=== PATIENT | female | born 1935 | race Caucasian/White ===

== ENCOUNTER 2020-11-05 12:39 | Emergency (ER) | payer MEDICARE, SELFPAY ==
[2020-11-05 13:15] VITALS: BP 178/67; PULSE 60; RESP 18; TEMP 36.4; O2SAT 94
--- NOTE | 2020-11-05 15:25 | PC.NURSE ---
PT TO THE INTAKE STATING THAT SHE WAS GOING TO LEAVE, I INFORMED PATIENT SHE WAS THE NEXT ONE TO GO BACK. PT DECIDED TO STILL LEAVE
== END 2020-11-05 15:25 | disposition left against medical advice (07) ==
LOC: ANHED 15:33
PROVIDERS: PCP Internal Medicine
DX: M79.89 Other specified soft tissue disorders (principal)
CPT/HCPCS: 99199

== ENCOUNTER 2022-12-06 00:48 | Emergency (ER) | payer MEDICARE, SELFPAY ==
--- NOTE | ~2022-12-06 | CT_ITS ---
EXAMINATION: 1. CT facial bones w con DATE: 12/06/2022 06:06 INDICATION: TECHNIQUE: 1. Computed tomography (CT) of the facial bones and maxillofacial region was performed with 75 mL Omn ipaque-350 intravenous contrast. Sagittal and coronal reconstructions were obtained. The dose-length product was 301.47 mGy-cm. COMPARISON: None. FINDINGS: Soft tissue swelling and subcutaneous phlegmonous change with stranding and increased density in the subcutaneous fat at the right base of the nose and immediately adjacent right nares without discrete abscess. Extensive dental disease with numerous large and small bowel dental caries. No associated pe riapical or subperiosteal abscesses the first or cortical erosions to suggest osteomyelitis. No maxil lofacial fractures. Changes of bilateral intraocular lens replacement. Orbits are otherwise normal. T he mastoid air cells, middle ear cavities and paranasal sinuses are clear. Bilateral parotid and subm andibular glands are normal. Likely reactive mildly prominent but still normal-sized bilateral subman dibular lymph nodes. No pathologically enlarged maxillofacial or upper cervical lymphadenopathy. Visu alized portions of the brain and intracranial arteries are unremarkable. IMPRESSION: 1. Focal cellulitis and underlying mild phlegmonous change without abscess at the right nares space a t the nose. 2. Extensive dental disease with multiple dental caries but without evident periapical or subperioste al abscesses. Reviewed, dictated and finalized at location A. IMPRESSION: 1. Focal cellulitis and underlying mild phlegmonous change without abscess at t he right nares space at the nose. 2. Extensive dental disease with multiple dental caries but without evident per iapical or subperiosteal abscesses.
[2022-12-06 01:08] VITALS: BP 161/78; PULSE 60; RESP 20; TEMP 36.2; O2SAT 98
--- NOTE | 2022-12-06 04:35 | ED.SKABFB ---
HPI - Skin/Abscess/Foreign Bdy General Chief complaint: Skin/Abscess/Foreign Body Stated complaint: swollen, painful bump in nose Time Seen by Provider: 12/06/22 04:01 History of Present Illness HPI narrative: This is an 87-year-old female with past history of coronary artery disease, hypothyroidism, brought into the emergency room by family for a painful mass, rated 3/10, of the right nares for the past 2 days. It began 2 days ago and rapidly grown in size today. Related Data Home Medications Medication Instructions Recorded Confirmed aspirin 81 mg tablet,delayed 81 mg PO DAILY 11/30/19 06/23/22 release hydrocodone 7.5 mg-acetaminophen 1 tablet PO DAILY PRN 11/30/19 06/23/22 325 mg tablet morphine 30 mg/30 mL (1 mg/mL) See Rx Instructions .Route .COMPLEX 11/30/19 06/23/22 intravenous [employer] syringe calcium carbonate 600 mg calcium 600 mg PO DAILY 12/05/19 06/23/22 (1,500 mg) tablet (Calcium) Allergies Allergy/AdvReac Type Severity Reaction Status Date / Time gabapentin Allergy Intermediate leg Verified 06/23/22 10:00 swelling prochlorperazine Allergy Intermediate Rash Verified 06/23/22 10:00 [From Compazine] promethazine [From Phenergan] Allergy Intermediate Rash Verified 06/23/22 10:00 codeine Allergy Mild itching Verified 06/23/22 10:00 metoclopramide [From Reglan] Allergy Rash Verified 06/23/22 10:00 Review of Systems Review of Systems: CONSTITUTIONAL: Denies fever, chills, or sweats. EYES: Denies visual changes, redness, or discharge. ENT: Tender mass of the right nares Denies rhinorrhea, congestion, sore throat, or otalgia. CARDIOVASCULAR: Denies chest pain, palpitations, or edema. RESPIRATORY: Denies cough or dyspnea. GASTROINTESTINAL: Denies abdominal pain, nausea, vomiting, or diarrhea. NEUROLOGIC: Denies headache numbness, dizziness, or weakness. PSYCHIATRIC: Denies anxiety or depression. [facility] Past Medical History Medical History Abnormal alkaline phosphatase test Abnormality, skin Allergic dermatitis Controlled diabetes mellitus with diabetic polyneuropathy, without long-term current use of insulin Encounter for vitamin deficiency screening Essential (primary) hypertension Hx of spinal stenosis Hypothyroidism, unspecified Mixed hyperlipidemia Neuropathy Screening for breast cancer Screening for osteoporosis 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 Family History Family History Sibling Family history of malignant neoplasm Social History Social History Smoking status: Never smoker Second hand tobacco smoke exposure: No Alcohol intake: never Substance use: never Substance use type: does not use Lack of Transportation: No Lack of Food: Never True Current Housing: I Have Housing Concerned About Future Housing: No Difficulty Paying Gas/Electric Bills: No Difficulty Paying for Meds: No Currently Unemployed: No Education: High School Diploma/GED Difficulty w/ Childcare or Family Care: No Gender identity (if verbalized by the patient): Female Exam Narrative: GENERAL: Well-developed, well-nourished, and in no acute distress. Very hard of hearing HEAD: Normocephalic, atraumatic. EYES: PERRLA and EOMI. ENT: An erythematous, tender mass is noted at the posterior inferior border of the right nares with a vesicular lesion within the right nares consistent with abscess. Erythema and swelling is noted within the maxillary gingiva., no rhinorrhea or epistaxis. Mucous membranes moist. Oropharynx without tonsillar hypertrophy exudate or other lesions. CHEST: Clear to auscultation. No respiratory distress. No wheezes rales or rhonchi HEART: Regular rate and rhythm. No murmur heard. Normal peripheral pulses. ABDOMEN: Soft, nontender, nondistended, normal active bowel sounds. EXTRE
[2022-12-06 05:40] LABS: Anion Gap 4 mmol/L (8-16); Blood Urea Nitrogen 13 mg/dL (7-17); Calcium 9.2 mg/dL (8.4-10.2); Carbon Dioxide 39 mmol/L (22-30); Chloride 97 mmol/L (98-107); Estimated CRCL calculation 47 ml/min; Estimated Glomerular Filt Rate > 60; Glucose 108 mg/dL (65-110); Potassium 3.7 mmol/L (3.4-5.0); Sodium 140 mmol/L (137-145)
== END 2022-12-06 08:00 | disposition home or self-care (01) ==
PROVIDERS: Emergency Provider Preventive Medicine Aerospace Medicine; PCP Internal Medicine
DX: J34.0 Abscess, furuncle and carbuncle of nose (principal); E11.42 Type 2 diabetes mellitus with diabetic polyneuropathy; E03.9 Hypothyroidism, unspecified; E78.2 Mixed hyperlipidemia; Z79.82 Long term (current) use of aspirin; Z79.84 Long term (current) use of oral hypoglycemic drugs
CPT/HCPCS: 36415; 70487; 80048; 99284; Q9967

== ENCOUNTER 2024-08-04 10:59 | Inpatient (IN) | payer MEDICARE, SELFPAY ==
--- NOTE | ~2024-08-04 | XR_ITS ---
XR chest 2V Ordering provider: Jessica Schroeder PA-C History: 88 years Female with . weakness, TRANSIENT ALTERATION OF AWARENESS, UTI . Comparison: December 25, 2016 FINDINGS: MEDIASTINUM: The cardiac silhouette is not enlarged. LUNGS: No infiltrates, effusions or pneumothorax. Underlying emphysematous changes. Calcified granulomas. OTHER: No free air under the diaphragm. Degenerative changes of the spine. IMPRESSION: No acute cardiopulmonary pathology. Reviewed, dictated and finalized at location A. ATOR CONSTRUCTOR [employer]
--- NOTE | ~2024-08-04 | CT_ITS ---
EXAMINATION: CT brain wo con DATE: 08/04/2024 17:29 INDICATION: AMS . TECHNIQUE: Computed tomography (CT) of the head was performed without intravenous contrast. The mA wa s adjusted according to patient size. Iterative reconstruction technique was employed. The dose-lengt h product was 605.33 mGy-cm. COMPARISON: 07/03/2014. FINDINGS: No acute intracranial hemorrhage or extra-axial fluid collection. No hydrocephalus, mass, or herniation. No acute ischemic infarct. Unremarkable dural venous sinus attenuation. No acute osseous abnormality. Minimal opacification in a right posterior ethmoid cell, the remaining aerated spaces are clear. Moderate atrophy and chronic white matter change. Atherosclerotic intracranial calcification. Bilater al lens replacements. Empty sella. IMPRESSION: No acute intracranial process. Reviewed, dictated and finalized at location K. NCIAL PLANNING ASSISTANT
[2024-08-04 11:02] VITALS: BP 137/52; PULSE 66; RESP 18; TEMP 36.4; O2SAT 99
--- NOTE | 2024-08-04 12:40 | ED.WEAKNESS ---
HPI - Weakness General Chief complaint: Weakness <Jessica Schroeder PA-C - Last Filed: 08/08/24 17:25> Stated complaint: fatigue, confused, uti? <Jessica Schroeder PA-C - Last Filed: 08/08/24 17:25> Time Seen by Provider: 08/04/24 12:40 <Jessica Schroeder PA-C - Last Filed: 08/08/24 17:25> Focused HPI: This is a 88 year old female that presents to the ER for lethargy. Not wanting to eat much. Complaining of back pain. Reports worsening confusion. GENERAL: Elderly, well-nourished, and in no acute distress. HEAD: Normocephalic, atraumatic. CHEST: Clear to auscultation. ?No respiratory distress. HEART: Regular rate and rhythm.? NEURO: ?Alert and oriented x3. Patient screened in triage and initial orders placed.? ?Additional care and disposition to be based upon?diagnostic testing and treatment. <Jessica Schroeder PA-C - Last Filed: 08/08/24 17:25> History of Present Illness HPI Narrative: I agree with the above HPI. The reports the patient does have underlying dementia and has had worsening dementia. They also report the patient has decreased p.o. intake over the last few weeks. They state the patient is to be picky eater but these to be able to manipulate her and to eating but now patient is resistant to even foods she used to be found of. Patient denies any current complaints. <Sudarshan Redman MD - Last Filed: 08/04/24 19:18> Related Data Home medications: Home Medications ?Medication ?Instructions ?Recorded ?Confirmed ?Last Taken ?Type aspirin 81 mg tablet,delayed 81 mg PO DAILY 11/30/19 08/04/24 Unknown History release hydrocodone 7.5 mg-acetaminophen 1 tablet PO DAILY PRN pain 11/30/19 08/04/24 Unknown History 325 mg tablet <Jessica Schroeder PA-C - Last Filed: 08/08/24 17:25> Allergies/Adverse reactions: Allergies Allergy/AdvReac Type Severity Reaction Status Date / Time gabapentin Allergy Intermediate leg Verified 01/11/24 09:42 swelling prochlorperazine (From Allergy Intermediate Rash Verified 01/11/24 09:42 Compazine) promethazine (From Phenergan) Allergy Intermediate Rash Verified 01/11/24 09:42 codeine Allergy Mild itching Verified 01/11/24 09:42 metoclopramide (From Reglan) Allergy Rash Verified 01/11/24 09:42 <Jessica Schroeder PA-C - Last Filed: 08/08/24 17:25> Review of Systems Review of Systems: All systems reviewed & are unremarkable except as noted in HPI and below <Sudarshan Redman MD - Last Filed: 08/04/24 19:18> PMFSH Past Medical History Medical History: Medical History (Updated 08/07/24 @ 17:50 by Ro Gregory DO) Dementia Hx of spinal stenosis 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 Screening for breast cancer Encounter for vitamin deficiency screening Screening for osteoporosis Allergic dermatitis Neuropathy Controlled diabetes mellitus with diabetic polyneuropathy, without long-term current use of insulin Abnormality, skin Hypothyroidism, unspecified Abnormal alkaline phosphatase test Essential (primary) hypertension Mixed hyperlipidemia <Jessica Schroeder PA-C - Last Filed: 08/08/24 17:25> Family History Family History: Family History Sibling Family history of malignant neoplasm <Jessica Schroeder PA-C - Last Filed: 08/08/24 17:25> Social History Social History: Social History Smoking status: Never smoker Second hand tobacco smoke exposure: No Alcohol intake: former Substance use: never Substance use type: does not use Do You Feel Safe in your Home?: Yes Lack of Transportation: No Lack of Food: Never True Current Housing: I Have Housing Concerned About Future Housing: No Difficulty Paying Gas/Electric Bills: No Difficulty Paying for Meds: No Currently Unemployed: No Education: Grade School Difficulty w/ Childcare or Family Care: No Gender identity (if verbalized by the patient): Female Spiritual care concerns: No <Jessica Schroeder PA-C - Last Filed: 08/08/24 17:25> Exam Narrative: APPEARANCE: Well appearing, no pain, no distress, well-nourished. HEAD: normocephalic, atraumatic. EYES: PERRLA/EOMI, conjunctivae clear. NOSE: Normal no drainage EARS:TMS clear with good light reflex. THROAT: Pharynx clear, no exudate. NECK: Supple. No adenopathy, no masses. RESPIRATORY: Airway patent, respirations nonlabored. Clear to auscultation bilaterally, no rales, rhonchi, wheezing. CARDIOVASCULAR: Regular rate and rhythm without murmurs rubs or gallops. ABDOMINAL: Soft, nontender, nondistended, normal bowel sounds MUSCULOSKELETAL: Moves all extremities. Strength/ROM intact, No edema, No calf tenderness. NEURO: Alert. Cranial nerves II through XII intact. Grossly intact SKIN: Warm, dry. Normal Color <Sudarshan Redman MD - Last Filed: 08/04/24 19:18> Course Vital Signs Vital signs: Vital Signs Temperature 97.5 F L 08/04/24 11:02 Pulse Rate 66 08/04/24 11:02 Respiratory Rate 18 08/04/24 11:02 Blood Pressure 137/52 L 08/04/24 11:02 Pulse Oximetry 99 08/04/24 11:02 Oxygen Delivery Room Air 08/04/24 11:02 Temperature 97.6 F 08/05/24 19:42 Pulse Rate 61 08/05/24 20:00 Respiratory Rate 16 08/05/24 20:00 Blood Pressure 133/51 L 08/05/24 19:42 Pulse Oximetry 97 08/06/24 08:10 Oxygen Delivery Room Air 08/06/24 08:37 <Jessica Schroeder PA-C - Last Filed: 08/08/24 17:25> Vital Signs Temperature 97.5 F L 08/04/24 11:02 Pulse Rate 66 08/04/24 11:02 Respiratory Rate 18 08/04/24 11:02 Blood Pressure 137/52 L 08/04/24 11:02 Pulse Oximetry 99 08/04/24 11:02 Oxygen Delivery Room Air 08/04/24 11:02 Temperature 97.6 F 08/05/24 19:42 Pulse Rate 61 08/05/24 20:00 Respiratory Rate 16 08/05/24 20:00 Blood Pressure 133/51 L 08/05/24 19:42 Pulse Oximetry 97 08/06/24 08:10 Oxygen Delivery Room Air 08/06/24 08:37 <Sudarshan Redman MD - Last Filed: 08/04/24 19:18> MDM - Weakness MDM Narrative Medical decision making narrative: 88-year-old female presents emergency department for evaluation for decreased p.o. intake. Patient denies any specific complaints. Patient is afebrile with no leukocytosis and hemoglobin 11.6. Patient has an BELLO with a creatinine of 2.5 and typical baseline of 0.7-0.8. UA is negative for infection. Chest x-ray shows no acute cardiopulmonary abnormality. Family does not want the patient placed in a care home. Family does not feel the patient would tolerate having a G-tube placed. Case was discussed with hospitalist and patient was accepted for admission with care coordination placed <Sudarshan Redman MD - Last Filed: 08/04/24 19:18> Differential Diagnosis Differential diagnosis: Likely other (Dementia, gastritis, UTI, COVID, RSV, influenza, subdural hematoma, subarachnoid hemorrhage) <Sudarshan Redman MD - Last Filed: 08/04/24 19:18> Lab Data Attestation: I reviewed the patient's lab results. <Sudarshan Redman MD - Last Filed: 08/04/24 19:18> Result diagrams: 08/06/24 05:17 08/06/24 05:17 <Jessica Schroeder PA-C - Last Filed: 08/08/24 17:25> Labs: Lab Results 08/04/24 08/04/24 08/04/24 Range/Units 12:49 14:08 16:17 WBC 8.4 (4.5-10.0) K/mm3 RBC 4.25 (4.2-5.4) M/mm3 Hgb 11.6 L (12.0-15.0) g/dL Hct 37.7 (37.0-47.0) % MCV 88.7 (80-100) fl MCH 27.3 (26-34) pg MCHC 30.8 L (32-36) g/dl RDW 14.6 H (11.5-14.5) % Plt Count 230 (150-375) k/mm3 MPV 10.6 H (7.4-10.4) fl Immature Gran % (Auto) 0.2 (0-0.5) % Neut % (Auto) 70.9 (45.5-73.1) % Lymph % (Auto) 20.7 (18.3-44.2) % [place] % (Auto) 5.7 (2.6-8.5) % Eos % (Auto) 1.9 (0-4.4) % Baso % (Auto) 0.6 (0.2-1.2) % Lymph # (Auto) 1.73 (0.9-3.2) K/mm3 [place] # (Auto) 0.5 (0.1-0.6) K/mm3 Eos # (Auto) 0.2 (0-0.3) K/mm3 Baso # (Auto) 0.1 (0.0-0.1) K/mm3 Abs Immat Gran (auto) 0.02 (0.00-0.031) K/mm3 Absolute Neuts (auto) 5.9 (1.3-6.7) K/mm3 Absolute Nucleated RBC 0.000 (0.0-0.012) K/mm3 Nucleated RBC % 0.0 (0.0-0.2) % Sodium 141 (137-145) mmol/L Potassium 4.1 (3.4-5.0) mmol/L Chloride 103 (98-107) mmol/L Carbon Dioxide 34 H (22-30) mmol/L Anion Gap 4 (4-12) mmol/L BUN 29 H D (7-17) mg/dL Creatinine 2.50 H (0.7-1.0) mg/dL Estim Creat Clear Calc 13 ml/min Estimated GFR 18 L (59 - ) Glucose 105 (65-110) mg/dL POC Capillary Glucose (65-105) mg/dl Hemoglobin A1c 5.7 (<5.7) % Calcium 9.6 (8.4-10.2) mg/dL Total Bilirubin 0.7 (0.2-1.3) mg/dL AST 29 (14-36) U/L ALT 14 (6-35) U/L Alkaline Phosphatase 97 (38-126) U/L Total Protein 7.0 (6.3-8.2) g/dL Albumin 3.7 (3.5-5.1) g/dL Vitamin B12 (239-931) pg/mL Folate (2.76->20) ng/mL TSH (0.465-4.680) uIU/mL Urine Color Yellow (Yellow) Urine Appearance Clear (Clear) Urine pH 5.0 (5.0-9.0) Ur Specific [place] 1.015 (1.001-1.035) Urine Protein Negative (Negative) mg/dL Urine Glucose (UA) Negative (Negative) mg/dL Urine Ketones Trace H (Negative) mg/dL Ur Blood (Man) Negative (Negative) Urine Nitrate Negative (Negative) Urine Bilirubin Negative (Negative) Urine Urobilinogen 0.2 (<2.0) mg/dL Leukocyte Esterase Rfl Negative (Negative) JOHN/UL Influenza A (RT-PCR) Negative (Negative) Influenza B (RT-PCR) Negative (Negative) RSV (RT-PCR) Negative (Negative) SARS-CoV-2 RNA (RT-PCR) Negative (Negative) 08/04/24 08/05/24 08/05/24 Range/Units 21:17 06:20 07:41 WBC (4.5-10.0) K/mm3 RBC (4.2-5.4) M/mm3 Hgb (12.0-15.0) g/dL Hct (37.0-47.0) % MCV (80-100) fl MCH (26-34) pg MCHC (32-36) g/dl RDW (11.5-14.5) % Plt Count (150-375) k/mm3 MPV (7.4-10.4) fl Immature Gran % (Auto) (0-0.5) % Neut % (Auto) (45.5-73.1) % Lymph % (Auto) (18.3-44.2) % [place] % (Auto) (2.6-8.5) % Eos % (Auto) (0-4.4) % Baso % (Auto) (0.2-1.2) % Lymph # (Auto) (0.9-3.2) K/mm3 [place] # (Auto) (0.1-0.6) K/mm3 Eos # (Auto) (0-0.3) K/mm3 Baso # (Auto) (0.0-0.1) K/mm3 Abs Immat Gran (auto) (0.00-0.031) K/mm3 Absolute Neuts (auto) (1.3-6.7) K/mm3 Absolute Nucleated RBC (0.0-0.012) K/mm3 Nucleated RBC % (0.0-0.2) % Sodium 143 (137-145) mmol/L Potassium 3.3 L (3.4-5.0) mmol/L Chloride 107 (98-107) mmol/L Carbon Dioxide 27 (22-30) mmol/L Anion Gap 9 (4-12) mmol/L BUN 23 H (7-17) mg/dL Creatinine 2.10 H (0.7-1.0) mg/dL Estim Creat Clear Calc 15 ml/min Estimated GFR 22 L (59 - ) Glucose 105 (65-110) mg/dL POC Capillary Glucose 95 73 (65-105) mg/dl Hemoglobin A1c (<5.7) % Calcium 8.7 (8.4-10.2) mg/dL Total Bilirubin (0.2-1.3) mg/dL AST (14-36) U/L ALT (6-35) U/L Alkaline Phosphatase (38-126) U/L Total Protein (6.3-8.2) g/dL Albumin (3.5-5.1) g/dL Vitamin B12 458.0 (239-931) pg/mL Folate > 20.0 H (2.76->20) ng/mL TSH 0.098 L (0.465-4.680) uIU/mL Urine Color (Yellow) Urine Appearance (Clear) Urine pH (5.0-9.0) Ur Specific [place] (1.001-1.035) Urine Protein (Negative) mg/dL Urine Glucose (UA) (Negative) mg/dL Urine Ketones (Negative) mg/dL Ur Blood (Man) (Negative) Urine Nitrate (Negative) Urine Bilirubin (Negative) Urine Urobilinogen (<2.0) mg/dL Leukocyte Esterase Rfl (Negative) JOHN/UL Influenza A (RT-PCR) (Negative) Influenza B (RT-PCR) (Negative) RSV (RT-PCR) (Negative) SARS-CoV-2 RNA (RT-PCR) (Negative) 08/05/24 Range/Units 11:52 WBC (4.5-10.0) K/mm3 RBC (4.2-5.4) M/mm3 Hgb (12.0-15.0) g/dL Hct (37.0-47.0) % MCV (80-100) fl MCH (26-34) pg MCHC (32-36) g/dl RDW (11.5-14.5) % Plt Count (150-375) k/mm3 MPV (7.4-10.4) fl Immature Gran % (Auto) (0-0.5) % Neut % (Auto) (45.5-73.1) % Lymph % (Auto) (18.3-44.2) % [place] % (Auto) (2.6-8.5) % Eos % (Auto) (0-4.4) % Baso % (Auto) (0.2-1.2) % Lymph # (Auto) (0.9-3.2) K/mm3 [place] # (Auto) (0.1-0.6) K/mm3 Eos # (Auto) (0-0.3) K/mm3 Baso # (Auto) (0.0-0.1) K/mm3 Abs Immat Gran (auto) (0.00-0.031) K/mm3 Absolute Neuts (auto) (1.3-6.7) K/mm3 Absolute Nucleated RBC (0.0-0.012) K/mm3 Nucleated RBC % (0.0-0.2) % Sodium (137-145) mmol/L Potassium (3.4-5.0) mmol/L Chloride (98-107) mmol/L Carbon Dioxide (22-30) mmol/L Anion Gap (4-12) mmol/L BUN (7-17) mg/dL Creatinine (0.7-1.0) mg/dL Estim Creat Clear Calc ml/min Estimated GFR (59 - ) Glucose (65-110) mg/dL POC Capillary Glucose 97 (65-105) mg/dl Hemoglobin A1c (<5.7) % Calcium (8.4-10.2) mg/dL Total Bilirubin (0.2-1.3) mg/dL AST (14-36) U/L ALT (6-35) U/L Alkaline Phosphatase (38-126) U/L Total Protein (6.3-8.2) g/dL Albumin (3.5-5.1) g/dL Vitamin B12 (239-931) pg/mL Folate (2.76->20) ng/mL TSH (0.465-4.680) uIU/mL Urine Color (Yellow) Urine Appearance (Clear) Urine pH (5.0-9.0) Ur Specific [place] (1.001-1.035) Urine Protein (Negative) mg/dL Urine Glucose (UA) (Negative) mg/dL Urine Ketones (Negative) mg/dL Ur Blood (Man) (Negative) Urine Nitrate (Negative) Urine Bilirubin (Negative) Urine Urobilinogen (<2.0) mg/dL Leukocyte Esterase Rfl (Negative) JOHN/UL Influenza A (RT-PCR) (Negative) Influenza B (RT-PCR) (Negative) RSV (RT-PCR) (Negative) SARS-CoV-2 RNA (RT-PCR) (Negative) <Jessica Schroeder PA-C - Last Filed: 08/08/24 17:25> Lab Results 08/04/24 08/04/24 08/04/24 Range/Units 12:49 14:08 16:17 WBC 8.4 (4.5-10.0) K/mm3 RBC 4.25 (4.2-5.4) M/mm3 Hgb 11.6 L (12.0-15.0) g/dL Hct 37.7 (37.0-47.0) % MCV 88.7 (80-100) fl MCH 27.3 (26-34) pg MCHC 30.8 L (32-36) g/dl RDW 14.6 H (11.5-14.5) % Plt Count 230 (150-375) k/mm3 MPV 10.6 H (7.4-10.4) fl Immature Gran % (Auto) 0.2 (0-0.5) % Neut % (Auto) 70.9 (45.5-73.1) % Lymph % (Auto) 20.7 (18.3-44.2) % [place] % (Auto) 5.7 (2.6-8.5) % Eos % (Auto) 1.9 (0-4.4) % Baso % (Auto) 0.6 (0.2-1.2) % Lymph # (Auto) 1.73 (0.9-3.2) K/mm3 [place] # (Auto) 0.5 (0.1-0.6) K/mm3 Eos # (Auto) 0.2 (0-0.3) K/mm3 Baso # (Auto) 0.1 (0.0-0.1) K/mm3 Abs Immat Gran (auto) 0.02 (0.00-0.031) K/mm3 Absolute Neuts (auto) 5.9 (1.3-6.7) K/mm3 Absolute Nucleated RBC 0.000 (0.0-0.012) K/mm3 Nucleated RBC % 0.0 (0.0-0.2) % Sodium 141 (137-145) mmol/L Potassium 4.1 (3.4-5.0) mmol/L Chloride 103 (98-107) mmol/L Carbon Dioxide 34 H (22-30) mmol/L Anion Gap 4 (4-12) mmol/L BUN 29 H D (7-17) mg/dL Creatinine 2.50 H (0.7-1.0) mg/dL Estim Creat Clear Calc 13 ml/min Estimated GFR 18 L (59 - ) Glucose 105 (65-110) mg/dL POC Capillary Glucose (65-105) mg/dl Hemoglobin A1c 5.7 (<5.7) % Calcium 9.6 (8.4-10.2) mg/dL Total Bilirubin 0.7 (0.2-1.3) mg/dL AST 29 (14-36) U/L ALT 14 (6-35) U/L Alkaline Phosphatase 97 (38-126) U/L Total Protein 7.0 (6.3-8.2) g/dL Albumin 3.7 (3.5-5.1) g/dL Vitamin B12 (239-931) pg/mL Folate (2.76->20) ng/mL TSH (0.465-4.680) uIU/mL Urine Color Yellow (Yellow) Urine Appearance Clear (Clear) Urine pH 5.0 (5.0-9.0) Ur Specific [place] 1.015 (1.001-1.035) Urine Protein Negative (Negative) mg/dL Urine Glucose (UA) Negative (Negative) mg/dL Urine Ketones Trace H (Negative) mg/dL Ur Blood (Man) Negative (Negative) Urine Nitrate Negative (Negative) Urine Bilirubin Negative (Negative) Urine Urobilinogen 0.2 (<2.0) mg/dL Leukocyte Esterase Rfl Negative (Negative) JOHN/UL Influenza A (RT-PCR) Negative (Negative) Influenza B (RT-PCR) Negative (Negative) RSV (RT-PCR) Negative (Negative) SARS-CoV-2 RNA (RT-PCR) Negative (Negative) 08/04/24 08/05/24 08/05/24 Range/Units 21:17 06:20 07:41 WBC (4.5-10.0) K/mm3 RBC (4.2-5.4) M/mm3 Hgb (12.0-15.0) g/dL Hct (37.0-47.0) % MCV (80-100) fl MCH (26-34) pg MCHC (32-36) g/dl RDW (11.5-14.5) % Plt Count (150-375) k/mm3 MPV (7.4-10.4) fl Immature Gran % (Auto) (0-0.5) % Neut % (Auto) (45.5-73.1) % Lymph % (Auto) (18.3-44.2) % [place] % (Auto) (2.6-8.5) % Eos % (Auto) (0-4.4) % Baso % (Auto) (0.2-1.2) % Lymph # (Auto) (0.9-3.2) K/mm3 [place] # (Auto) (0.1-0.6) K/mm3 Eos # (Auto) (0-0.3) K/mm3 Baso # (Auto) (0.0-0.1) K/mm3 Abs Immat Gran (auto) (0.00-0.031) K/mm3 Absolute Neuts (auto) (1.3-6.7) K/mm3 Absolute Nucleated RBC (0.0-0.012) K/mm3 Nucleated RBC % (0.0-0.2) % Sodium 143 (137-145) mmol/L Potassium 3.3 L (3.4-5.0) mmol/L Chloride 107 (98-107) mmol/L Carbon Dioxide 27 (22-30) mmol/L Anion Gap 9 (4-12) mmol/L BUN 23 H (7-17) mg/dL Creatinine 2.10 H (0.7-1.0) mg/dL Estim Creat Clear Calc 15 ml/min Estimated GFR 22 L (59 - ) Glucose 105 (65-110) mg/dL POC Capillary Glucose 95 73 (65-105) mg/dl Hemoglobin A1c (<5.7) % Calcium 8.7 (8.4-10.2) mg/dL Total Bilirubin (0.2-1.3) mg/dL AST (14-36) U/L ALT (6-35) U/L Alkaline Phosphatase (38-126) U/L Total Protein (6.3-8.2) g/dL Albumin (3.5-5.1) g/dL Vitamin B12 458.0 (239-931) pg/mL Folate > 20.0 H (2.76->20) ng/mL TSH 0.098 L (0.465-4.680) uIU/mL Urine Color (Yellow) Urine Appearance (Clear) Urine pH (5.0-9.0) Ur Specific [place] (1.001-1.035) Urine Protein (Negative) mg/dL Urine Glucose (UA) (Negative) mg/dL Urine Ketones (Negative) mg/dL Ur Blood (Man) (Negative) Urine Nitrate (Negative) Urine Bilirubin (Negative) Urine Urobilinogen (<2.0) mg/dL Leukocyte Esterase Rfl (Negative) JOHN/UL Influenza A (RT-PCR) (Negative) Influenza B (RT-PCR) (Negative) RSV (RT-PCR) (Negative) SARS-CoV-2 RNA (RT-PCR) (Negative) 08/05/24 Range/Units 11:52 WBC (4.5-10.0) K/mm3 RBC (4.2-5.4) M/mm3 Hgb (12.0-15.0) g/dL Hct (37.0-47.0) % MCV (80-100) fl MCH (26-34) pg MCHC (32-36) g/dl RDW (11.5-14.5) % Plt Count (150-375) k/mm3 MPV (7.4-10.4) fl Immature Gran % (Auto) (0-0.5) % Neut % (Auto) (45.5-73.1) % Lymph % (Auto) (18.3-44.2) % [place] % (Auto) (2.6-8.5) % Eos % (Auto) (0-4.4) % Baso % (Auto) (0.2-1.2) % Lymph # (Auto) (0.9-3.2) K/mm3 [place] # (Auto) (0.1-0.6) K/mm3 Eos # (Auto) (0-0.3) K/mm3 Baso # (Auto) (0.0-0.1) K/mm3 Abs Immat Gran (auto) (0.00-0.031) K/mm3 Absolute Neuts (auto) (1.3-6.7) K/mm3 Absolute Nucleated RBC (0.0-0.012) K/mm3 Nucleated RBC % (0.0-0.2) % Sodium (137-145) mmol/L Potassium (3.4-5.0) mmol/L Chloride (98-107) mmol/L Carbon Dioxide (22-30) mmol/L Anion Gap (4-12) mmol/L BUN (7-17) mg/dL Creatinine (0.7-1.0) mg/dL Estim Creat Clear Calc ml/min Estimated GFR (59 - ) Glucose (65-110) mg/dL POC Capillary Glucose 97 (65-105) mg/dl Hemoglobin A1c (<5.7) % Calcium (8.4-10.2) mg/dL Total Bilirubin (0.2-1.3) mg/dL AST (14-36) U/L ALT (6-35) U/L Alkaline Phosphatase (38-126) U/L Total Protein (6.3-8.2) g/dL Albumin (3.5-5.1) g/dL Vitamin B12 (239-931) pg/mL Folate (2.76->20) ng/mL TSH (0.465-4.680) uIU/mL Urine Color (Yellow) Urine Appearance (Clear) Urine pH (5.0-9.0) Ur Specific [place] (1.001-1.035) Urine Protein (Negative) mg/dL Urine Glucose (UA) (Negative) mg/dL Urine Ketones (Negative) mg/dL Ur Blood (Man) (Negative) Urine Nitrate (Negative) Urine Bilirubin (Negative) Urine Urobilinogen (<2.0) mg/dL Leukocyte Esterase Rfl (Negative) JOHN/UL Influenza A (RT-PCR) (Negative) Influenza B (RT-PCR) (Negative) RSV (RT-PCR) (Negative) SARS-CoV-2 RNA (RT-PCR) (Negative) <Sudarshan Redman MD - Last Filed: 08/04/24 19:18> Imaging Data Radiologist's impression: Impressions Chest X-Ray 08/04/24 13:11 IMPRESSION: No acute cardiopulmonary pathology. Head CT 08/04/24 17:30 IMPRESSION: No acute intracranial process. <Sudarshan Redman MD - Last Filed: 08/04/24 19:18> Critical Care Time Critical Care Time Critical Care Time: Yes <Jessica Schroeder PA-C - Last Filed: 08/08/24 17:25> Total Critical Care Time: 35 <Jessica Schroeder PA-C - Last Filed: 08/08/24 17:25> Discharge Plan Discharge Clinical Impression: Adult failure to thrive, BELLO (acute kidney injury) <Jessica Schroeder PA-C - Last Filed: 08/08/24 17:25> Patient Disposition: Still a Patient <Jessica Schroeder PA-C - Last Filed: 08/08/24 17:25> Condition: Stable <Jessica Schroeder PA-C - Last Filed: 08/08/24 17:25>
--- NOTE | 2024-08-04 12:41 | ECG_ITS ---
Test Date: 2024-08-04 12:51:07 Measurements Intervals [place] Rate: 67 P: 91 WV: 178 QRS: -33 QRSD: 79 T: 51 QT: 395 QTc: 417 Interpretive Statements SINUS RHYTHM MARKED LEFT AXIS DEVIATION [QRS AXIS < -30] NONSPECIFIC T-WAVE ABNORMALITY No previous ECG available for comparison Electronically Signed On 08-04-2024 12:52:34 [employer] INTERN by Cameron Hansen M.D.
[2024-08-04 13:07] LABS: Basophils Absolute Auto 0.1 K/mm3 (0.0-0.1); Basophils Percent Auto 0.6 % (0.2-1.2); Eosinophils Absolute Auto 0.2 K/mm3 (0-0.3); Eosinophils Percent Auto 1.9 % (0-4.4); Hematocrit 37.7 % (37.0-47.0); Hemoglobin 11.6 g/dL (12.0-15.0); Immature Granulocyte Absolute 0.02 K/mm3 (0.00-0.031); Immature Granulocyte Percent A 0.2 % (0-0.5); Lymphocytes Absolute Auto 1.73 K/mm3 (0.9-3.2); Lymphocytes Percent Auto 20.7 % (18.3-44.2); Mean Corpuscular HGB Conc 30.8 g/dl (32-36); Mean Corpuscular Hemoglobin 27.3 pg (26-34); Mean Corpuscular Volume 88.7 fl (80-100); Mean Platelet Volume 10.6 fl (7.4-10.4); Monocytes Absolute Auto 0.5 K/mm3 (0.1-0.6); Monocytes Percent Auto 5.7 % (2.6-8.5); Neutrophils Absolute Auto 5.9 K/mm3 (1.3-6.7); Neutrophils Percent Auto 70.9 % (45.5-73.1); Platelet Count Result 230 k/mm3 (150-375); Red Blood Count 4.25 M/mm3 (4.2-5.4); Red Cell Distribution Width 14.6 % (11.5-14.5); White Blood Count 8.4 K/mm3 (4.5-10.0)
[2024-08-04 13:19] LABS: Alanine Aminotransferase 14 U/L (6-35); Albumin Level 3.7 g/dL (3.5-5.1); Alkaline Phosphatase 97 U/L (38-126); Anion Gap 4 mmol/L (4-12); Aspartate Amino Transferase 29 U/L (14-36); Bilirubin,Total 0.7 mg/dL (0.2-1.3); Blood Urea Nitrogen 29 mg/dL (7-17); Calcium 9.6 mg/dL (8.4-10.2); Carbon Dioxide 34 mmol/L (22-30); Chloride 103 mmol/L (98-107); Estimated CRCL calculation 13 ml/min; Estimated Glomerular Filt Rate 18; Glucose 105 mg/dL (65-110); Potassium 4.1 mmol/L (3.4-5.0); Sodium 141 mmol/L (137-145)
[2024-08-04 14:18] LABS: Add Urine Microscopic? NO; Appearance Urine Clear (Clear); Bilirubin Urine Negative (Negative); Blood Urine Negative (Negative); Color Urine Yellow (Yellow); Glucose Urine UA Negative (Negative); Ketones Urine Trace mg/dL (Negative); Leukocyte Esterase Ur Negative LEU/UL (Negative); Nitrate Urine Negative (Negative); Protein Urine Negative (Negative); Specific Grav Ur 1.015 (1.001-1.035); Urobilinogen Urine 0.2 mg/dL (<2.0)
[2024-08-04 16:57] LABS: Influenza A QL RT-PCR Negative (Negative); Influenza B QL RT-PCR Negative (Negative); RSV RNA, RT-PCR Negative (Negative); SARS-CoV-2 RNA PCR Negative (Negative)
[2024-08-04] MEDS: SODIUM CHLORIDE 0.9% IV 1,000 ML 999 ML IV CONT (17:32)
--- NOTE | 2024-08-04 18:30 | PC.NURSE ---
Pt. able to ambulate to bathroom with a walker with assisance x1.
[2024-08-04 19:00] VITALS: BP 142/63; PULSE 63; RESP 16; O2SAT 95
--- NOTE | 2024-08-04 19:21 | PC.NURSE ---
Report attempted x1. Bed is not clean. Asked to call back in 10-15 minutes.
[2024-08-04 20:15] VITALS: BP 122/72; PULSE 85; RESP 16; O2SAT 95
--- NOTE | 2024-08-04 20:32 | ADMGEN ---
This patient, Bertha Amado, was admitted to 2 Medical Room 257-01. Patient/family oriented to hospital policies and general routines including ID bracelet, bed and alarms, visiting hours, pain management, procedures, bathroom and other care routines, personal items, smoking policy, room service/diet, and visiting hours. Information on how to activate the Rapid Response Team has been discussed. Patient/Family are encouraged to report perceived risks to care and to ask questions if they do not understand what they are told or what they should do.
[2024-08-04 20:40] VITALS: BP 139/54; PULSE 70; RESP 16; TEMP 36.6; O2SAT 97
[2024-08-04] MEDS: SODIUM CHLORIDE 0.9% IV 1,000 ML 125 ML IV CONT (21:05)
--- NOTE | 2024-08-04 21:08 | PM.IMHP ---
H&P: HPI History of Present Illness Date/Time: 08/04/24 21:08 Chief Complaint: Increasing confusion Narrative: Pt lives with her daughter who is the main carer. Pt has been really weak not eating and drinking for past few days daughter states she is withering away. pt not wanting to eat or drink Pt also has been getting increasing confused ? dementia Pt mind for past 2 years has been declining more recently not following commands daughter brought her in for evaluation however daughter not wanting placement or hospice care not wanting any consult to palliative care or hospice at this time. Daughter is main carer Inés Pt has a pain pump in situ, daughter will bring a corrected list of medications tomorrow. Labs show pt creat is 2.5, BELLO likely secondary to dehydration Pt appears confusion states she lives with her sister poor historian, daughter contacted for full history. 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 Screening for breast cancer Encounter for vitamin deficiency screening Screening for osteoporosis Allergic dermatitis Neuropathy Controlled diabetes mellitus with diabetic polyneuropathy, without long-term current use of insulin Abnormality, skin Hypothyroidism, unspecified Abnormal alkaline phosphatase test Essential (primary) hypertension Mixed hyperlipidemia Family History Family History Sibling Family history of malignant neoplasm Social History Social History Smoking status: Never smoker Second hand tobacco smoke exposure: No Alcohol intake: former Substance use: never Substance use type: does not use Do You Feel Safe in your Home?: Yes Lack of Transportation: No Lack of Food: Never True Current Housing: I Have Housing Concerned About Future Housing: No Difficulty Paying Gas/Electric Bills: No Difficulty Paying for Meds: No Currently Unemployed: No Education: Grade School Difficulty w/ Childcare or Family Care: No Gender identity (if verbalized by the patient): Female Spiritual care concerns: No Meds Home Medications and Allergies Home Medications ?Medication ?Instructions ?Recorded ?Confirmed ?Type aspirin 81 mg tablet,delayed 81 mg PO DAILY 11/30/19 01/11/24 History release hydrocodone 7.5 mg-acetaminophen 1 tablet PO DAILY PRN 11/30/19 01/11/24 History 325 mg tablet furosemide 20 mg tablet See Rx Instructions .Route 01/11/24 01/11/24 Rx .COMPLEX #270 tabs levothyroxine 100 mcg tablet See Rx Instructions .Route 05/09/24 Rx .COMPLEX #90 tabs metformin 500 mg tablet See Rx Instructions .Route 05/26/24 Rx .COMPLEX #180 tabs atorvastatin 40 mg tablet See Rx Instructions .Route 06/28/24 Rx .COMPLEX #90 tabs metoprolol tartrate 25 mg tablet See Rx Instructions .Route 06/28/24 Rx .COMPLEX #180 tabs omeprazole 40 mg capsule,delayed See Rx Instructions .Route 06/28/24 Rx release .COMPLEX #90 caps potassium chloride 10 mEq See Rx Instructions .Route 06/28/24 Rx capsule,extended release .COMPLEX #90 caps Allergies Allergy/AdvReac Type Severity Reaction Status Date / Time gabapentin Allergy Intermediate leg Verified 01/11/24 09:42 swelling prochlorperazine (From Allergy Intermediate Rash Verified 01/11/24 09:42 Compazine) promethazine (From Phenergan) Allergy Intermediate Rash Verified 01/11/24 09:42 codeine Allergy Mild itching Verified 01/11/24 09:42 metoclopramide (From Reglan) Allergy Rash Verified 01/11/24 09:42 Vital Signs Vital Signs - 24 hr 08/04/24 11:02 08/04/24 19:00 08/04/24 20:15 Temperature 36.4 C L Pulse Rate 66 63 85 Respiratory Rate 18 16 16 Blood Pressure 137/52 L 142/63 H 122/72 Pulse Oximetry 99 95 95 Oxygen Delivery Room Air Exam Narrative: dry facies thin appearing disoriented x2 Const: General: in distress and thin (dry facies, disoriented x2 ) Nutritional Appearance: overweight Orientation/consciousness: oriented to person HENMT: Head: normal to inspection Resp: Effort & Inspection: no respiratory distress Auscultation: no rhonchi and no wheezes Cardio: Rate: regular rate Rhythm: regular rhythm GI: Inspection: normal to inspection GI Palp: No abdominal tenderness, No Guarding due to palpation present (GI) and No Hepatomegaly present Auscultation: normal bowel sounds Neuro: Other: disoriented x2 poor historian TAKOTNA Extrem: Other: no edema of perpheries Psych: Other: early dementia H&P: Results Labs Labs: Short CBC 08/04/24 Range/Units 12:49 WBC 8.4 (4.5-10.0) K/mm3 Hgb 11.6 L (12.0-15.0) g/dL Hct 37.7 (37.0-47.0) % Plt Count 230 (150-375) k/mm3 BMP 08/04/24 12:49 Sodium 141 Potassium 4.1 Chloride 103 Carbon Dioxide 34 H BUN 29 H D Creatinine 2.50 H Glucose 105 Calcium 9.6 Liver Function 08/04/24 Range/Units 12:49 Total Bilirubin 0.7 (0.2-1.3) mg/dL AST 29 (14-36) U/L ALT 14 (6-35) U/L Alkaline Phosphatase 97 (38-126) U/L Albumin 3.7 (3.5-5.1) g/dL Urine 08/04/24 Range/Units 14:08 Urine Color Yellow (Yellow) Urine Appearance Clear (Clear) Urine pH 5.0 (5.0-9.0) Ur Specific [place] 1.015 (1.001-1.035) Urine Protein Negative (Negative) mg/dL Urine Glucose (UA) Negative (Negative) mg/dL Assessment and Plan Assessment and plan (1) BELLO (acute kidney injury): Code(s): N17.9 - Acute kidney failure, unspecified Status: Acute Assessment and Plan: plan hydrate with fluids watch creat levels creat is 2.5 on admission encourage oral fuids and ensures (2) Adult failure to thrive: Code(s): R62.7 - Adult failure to thrive Status: Acute Assessment and Plan: ST and nutritional assessment add Remeron to stimulate appetite PT/ OT (3) Dementia: Code(s): F03.90 - Unspecified dementia, unspecified severity, without behavioral disturbance, psychotic disturbance, mood disturbance, and anxiety Status: Acute Assessment and Plan: slow decline over 2 years start dementia medication start trazadone at night to help with sleep and any sundowning order IM zyprexa if very agitated family not wanting any placement refer to neurology or psych on dc for full evaluation of dementia and further cognitive assessments I think pt will benefit from Home health services Plan DVT: SCD code: full code daughter declining palliative consults or hospice consults Hospitalist MIPS Advance Care Plan I have confirmed that the patient's Advanced Care Plan is present, code status is documented, or surrogate decision maker is listed in patient medical record.: Yes Medication Reconciliation I have utilized all available resources to obtain, update and review the patients current medications (includes all prescriptions, OTC, herbals, cannabis, and nutritional supplements).: Yes
[2024-08-04 21:20] LABS: Glucose Point of Care 95 mg/dl (65-105)
[2024-08-04 21:56] VITALS: PULSE 70; RESP 16; O2SAT 97
[2024-08-04 22:12] LABS: Hemoglobin A1C 5.7 % (<5.7)
[2024-08-04 22:35] VITALS: PULSE 70
[2024-08-04] MEDS: METOPROLOL TARTRATE 25 MG TABLET BY MOUTH (22:35)
[2024-08-05] MEDS: OLANZapine 10 MG INJ VIAL 5 MG IM (04:47)
[2024-08-05 06:45] LABS: Anion Gap 9 mmol/L (4-12); Blood Urea Nitrogen 23 mg/dL (7-17); Calcium 8.7 mg/dL (8.4-10.2); Carbon Dioxide 27 mmol/L (22-30); Chloride 107 mmol/L (98-107); Estimated CRCL calculation 15 ml/min; Estimated Glomerular Filt Rate 22; Glucose 105 mg/dL (65-110); Potassium 3.3 mmol/L (3.4-5.0); Sodium 143 mmol/L (137-145)
[2024-08-05 07:10] LABS: Thyroid Stimulating Hormone 0.098 uIU/mL (0.465-4.680)
[2024-08-05 07:44] LABS: Glucose Point of Care 73 mg/dl (65-105)
[2024-08-05 07:49] LABS: Folic Acid > 20.0 ng/mL (2.76->20)
[2024-08-05] MEDS: ASPIRIN 81 MG ENTERIC TABLET PO (10:18)
[2024-08-05] MEDS: PANTOPRAZOLE 40 MG TABLET PO ×2 (10:18→19:10)
[2024-08-05] MEDS: POTASSIUM CHLORIDE 10 MEQ ER TABLET PO (10:18)
[2024-08-05 10:19] VITALS: PULSE 90
[2024-08-05] MEDS: ATORVASTATIN 20 MG TABLET PO (10:19)
[2024-08-05] MEDS: METOPROLOL TARTRATE 25 MG TABLET BY MOUTH ×2 (10:19→19:10)
[2024-08-05 12:04] LABS: Glucose Point of Care 97 mg/dl (65-105)
--- NOTE | 2024-08-05 13:48 | PM.IMPN ---
Progress Note: A&P Assessment and Plan (1) BELLO (acute kidney injury): Code(s): N17.9 - Acute kidney failure, unspecified Status: Acute Assessment and Plan: IV fluids. Creatinine on admission 2.5 Baseline creatinine 0.8 2022 Continue IV fluids (2) Adult failure to thrive: Code(s): R62.7 - Adult failure to thrive Status: Acute Assessment and Plan: ST and nutritional assessment add Remeron to stimulate appetite PT/ OT (3) Dementia: Code(s): F03.90 - Unspecified dementia, unspecified severity, without behavioral disturbance, psychotic disturbance, mood disturbance, and anxiety Status: Acute Assessment and Plan: CT head was negative for any acute intracranial abnormality slow decline over 2 years start dementia medication start trazadone at night to help with sleep and any owning IM zyprexa if very agitated family not wanting any placement Plan DVT: SCD code: full code Subjective Date/time seen: 08/05/24 13:48 Interval history: Patient intermittently agitated. Confused family at bedside discussed with them. Review of Systems Review of Systems: All systems reviewed & are unremarkable except as noted in HPI and below Exam Narrative: APPEARANCE: Well appearing, no pain, no distress, well-nourished. Confused HEAD: normocephalic, atraumatic. EYES: PERRLA/EOMI, conjunctivae clear. NECK: Supple. No adenopathy, no masses. RESPIRATORY: Airway patent, respirations nonlabored. Clear to auscultation bilaterally, no rales, rhonchi, wheezing. CARDIOVASCULAR: Regular rate and rhythm without murmurs rubs or gallops. ABDOMINAL: Soft, nontender, nondistended, normal bowel sounds MUSCULOSKELETAL: Moves all extremities. Strength/ROM intact, No edema, No calf tenderness. NEURO: Alert confused. Cranial nerves II through XII intact. Grossly intact SKIN: Warm, dry. Normal Color Objective Data Vital Signs Vital Signs: Vital Signs - 24 hr 08/04/24 19:00 08/04/24 20:15 08/04/24 20:40 Temperature 98 F Pulse Rate 63 85 70 Respiratory Rate 16 16 16 Blood Pressure 142/63 H 122/72 139/54 L Pulse Oximetry 95 95 97 Oxygen Delivery 08/04/24 21:56 08/04/24 22:35 08/05/24 10:19 Temperature Pulse Rate 70 70 90 Respiratory Rate 16 Blood Pressure Pulse Oximetry 97 Oxygen Delivery Room Air 08/05/24 10:19 08/05/24 11:15 Temperature Pulse Rate Respiratory Rate Blood Pressure Pulse Oximetry Oxygen Delivery Room Air Room Air Intake/Output Intake/Output: Intake & Output 08/02/24 08/03/24 08/04/24 08/05/24 23:59 23:59 23:59 23:59 Intake Total 1112.5 320 Output Total 100 Balance 1012.5 320 Meds/Results Medications: Active Medications Generic Name Dose Route Start Last Admin Trade Name Freq PRN Reason Stop Dose Admin Hydrocodone Bitart/Acetaminophen 1 tab 08/04/24 21:30 Hydrocodone/Acetaminophen (*Crx) 7.5-325 Mg Tablet PO DAILY PRN pain Aspirin 81 mg 08/05/24 09:00 08/05/24 10:18 Aspirin 81 Mg Enteric Tablet PO 81 mg DAILY JOSE Administration Atorvastatin Calcium 20 mg 08/05/24 09:00 08/05/24 10:19 Atorvastatin 20 Mg Tablet PO 20 mg DAILY JOSE Administration Dextrose 12.5 gm 08/04/24 21:51 Dextrose 50% 25 Gm/50 Ml Syringe IV PUSH PRN PRN Hypoglycemia Protocol Glucagon 1 mg 08/04/24 21:51 Glucagon For Inj 1 Mg Vial IM PRN PRN Hypoglycemia Protocol Glucose 15 gm 08/04/24 21:51 Glucose Oral Gel 15 Gm Of Glucse In 37.5 Gm Tube PO PRN PRN Hypoglycemia Protocol Sodium Chloride 1,000 mls @ 70 mls/hr 08/04/24 18:30 08/05/24 10:21 Normal Saline Iv IV CONT Not Given .[id number] [facility] Dextrose 1,000 mls @ 100 mls/hr 08/04/24 21:51 Dextrose 5% 1,000 Ml IVPB PRN PRN Hypoglycemia Protocol Insulin Aspart 2 - 5 units 08/05/24 08:00 08/05/24 10:21 Insulin Aspart (*Bkc) 100 Units/Ml SUB-Q Not Given TIDWM [facility] Protocol Levothyroxine Sodium 100 mcg 08/05/24 06:30 08/05/24 06:09 Levothyroxine Sodium 100 Mcg Tablet PO Not Given DAILY@0630 [facility] Metoprolol Tartrate 25 mg 08/04/24 21:30 08/05/24 10:19 Metoprolol Tartrate 25 Mg Tablet BY MOUTH 25 mg Q12HR JOSE Administration Mirtazapine 7.5 mg 08/05/24 21:00 Mirtazapine 7.5 Mg Tablet PO HS JOSE Olanzapine 5 mg 08/04/24 21:32 08/05/24 04:47 Olanzapine 10 Mg Inj Vial IM 5 mg ONCE PRN Administration Agitation Pantoprazole Sodium 40 mg 08/05/24 09:00 08/05/24 10:18 Pantoprazole 40 Mg Tablet PO 40 mg Q12HR JOSE Administration Potassium Chloride 10 meq 08/05/24 09:00 08/05/24 10:18 Potassium Chloride 10 Meq Er Tablet PO 10 meq DAILY JOSE Administration Trazodone HCl 25 mg 08/05/24 21:00 Trazodone Hcl 25 Mg Tablet PO HS [facility] Radiology Results: ITS Impressions Chest X-Ray 08/04/24 13:11 IMPRESSION: No acute cardiopulmonary pathology. Head CT 08/04/24 17:30 IMPRESSION: No acute intracranial process. Labs Labs: Laboratory Results - last 24 hr 08/04/24 08/04/24 08/04/24 12:49 14:08 16:17 Sodium Potassium Chloride Carbon Dioxide Anion Gap BUN Creatinine Estim Creat Clear Calc Estimated GFR Glucose POC Capillary Glucose Hemoglobin A1c 5.7 Calcium Vitamin B12 Folate TSH Urine Color Yellow Urine Appearance Clear Urine pH 5.0 Ur Specific [place] 1.015 Urine Protein Negative Urine Glucose (UA) Negative Urine Ketones Trace H Ur Blood (Man) Negative Urine Nitrate Negative Urine Bilirubin Negative Urine Urobilinogen 0.2 Leukocyte Esterase Rfl Negative Influenza A (RT-PCR) Negative Influenza B (RT-PCR) Negative RSV (RT-PCR) Negative SARS-CoV-2 RNA (RT-PCR) Negative 08/04/24 08/05/24 08/05/24 21:17 06:20 07:41 Sodium 143 Potassium 3.3 L Chloride 107 Carbon Dioxide 27 Anion Gap 9 BUN 23 H Creatinine 2.10 H Estim Creat Clear Calc 15 Estimated GFR 22 L Glucose 105 POC Capillary Glucose 95 73 Hemoglobin A1c Calcium 8.7 Vitamin B12 458.0 Folate > 20.0 H TSH 0.098 L Urine Color Urine Appearance Urine pH Ur Specific [place] Urine Protein Urine Glucose (UA) Urine Ketones Ur Blood (Man) Urine Nitrate Urine Bilirubin Urine Urobilinogen Leukocyte Esterase Rfl Influenza A (RT-PCR) Influenza B (RT-PCR) RSV (RT-PCR) SARS-CoV-2 RNA (RT-PCR) 08/05/24 11:52 Sodium Potassium Chloride Carbon Dioxide Anion Gap BUN Creatinine Estim Creat Clear Calc Estimated GFR Glucose POC Capillary Glucose 97 Hemoglobin A1c Calcium Vitamin B12 Folate TSH Urine Color Urine Appearance Urine pH Ur Specific [place] Urine Protein Urine Glucose (UA) Urine Ketones Ur Blood (Man) Urine Nitrate Urine Bilirubin Urine Urobilinogen Leukocyte Esterase Rfl Influenza A (RT-PCR) Influenza B (RT-PCR) RSV (RT-PCR) SARS-CoV-2 RNA (RT-PCR)
[2024-08-05 14:29] VITALS: BMI 26.6
[2024-08-05 17:10] LABS: Glucose Point of Care 107 mg/dl (65-105)
[2024-08-05 19:10] VITALS: PULSE 76
[2024-08-05] MEDS: MIRTAZAPINE 7.5 MG TABLET PO (19:10)
[2024-08-05] MEDS: traZODone HCL 25 MG TABLET PO (19:10)
[2024-08-05 19:42] VITALS: BP 133/51; PULSE 61; RESP 16; TEMP 36.4; O2SAT 93
[2024-08-05 19:43] LABS: Glucose Point of Care 147 mg/dl (65-105)
[2024-08-05 20:00] VITALS: PULSE 61; RESP 16; O2SAT 93
[2024-08-05] MEDS: SODIUM CHLORIDE 0.9% IV 1,000 ML 70 ML IV CONT (20:48)
[2024-08-06 05:30] LABS: Basophils Percent Auto 0.5 % (0.2-1.2); Eosinophils Absolute Auto 0.1 K/mm3 (0-0.3); Eosinophils Percent Auto 2.2 % (0-4.4); Hematocrit 30.3 % (37.0-47.0); Hemoglobin 9.4 g/dL (12.0-15.0); Immature Granulocyte Absolute 0.01 K/mm3 (0.00-0.031); Immature Granulocyte Percent A 0.2 % (0-0.5); Lymphocytes Absolute Auto 1.27 K/mm3 (0.9-3.2); Lymphocytes Percent Auto 21.8 % (18.3-44.2); Mean Corpuscular Hemoglobin 27.9 pg (26-34); Mean Corpuscular Volume 89.9 fl (80-100); Mean Platelet Volume 10.6 fl (7.4-10.4); Monocytes Absolute Auto 0.4 K/mm3 (0.1-0.6); Monocytes Percent Auto 6.7 % (2.6-8.5); Neutrophils Percent Auto 68.6 % (45.5-73.1); Platelet Count Result 158 k/mm3 (150-375); Red Blood Count 3.37 M/mm3 (4.2-5.4); Red Cell Distribution Width 14.7 % (11.5-14.5); White Blood Count 5.8 K/mm3 (4.5-10.0)
[2024-08-06] MEDS: LEVOTHYROXINE SODIUM 100 MCG TABLET PO (05:39)
[2024-08-06 05:44] LABS: Alanine Aminotransferase 12 U/L (6-35); Albumin Level 2.9 g/dL (3.5-5.1); Alkaline Phosphatase 82 U/L (38-126); Anion Gap -1 mmol/L (4-12); Aspartate Amino Transferase 30 U/L (14-36); Bilirubin,Total 0.5 mg/dL (0.2-1.3); Blood Urea Nitrogen 16 mg/dL (7-17); Calcium 8.6 mg/dL (8.4-10.2); Carbon Dioxide 32 mmol/L (22-30); Chloride 113 mmol/L (98-107); Estimated CRCL calculation 19 ml/min; Estimated Glomerular Filt Rate 30; Glucose 119 mg/dL (65-110); Magnesium 1.6 mg/dL (1.6-2.3); Potassium 5.5 mmol/L (3.4-5.0); Sodium 144 mmol/L (137-145)
[2024-08-06 08:10] VITALS: O2SAT 97
[2024-08-06] MEDS: SODIUM ZIRCONIUM CYCLOSILICATE 10 GM POWD.PACK PO (08:36)
[2024-08-06] MEDS: ATORVASTATIN 20 MG TABLET PO (08:36)
[2024-08-06] MEDS: PANTOPRAZOLE 40 MG TABLET PO (08:37)
[2024-08-06] MEDS: ACETAMINOPHEN 325 MG TABLET 650 MG PO (08:37)
[2024-08-06] MEDS: ASPIRIN 81 MG ENTERIC TABLET PO (08:37)
[2024-08-06] MEDS: METOPROLOL TARTRATE 25 MG TABLET BY MOUTH (08:38)
[2024-08-06 08:59] LABS: Glucose Point of Care 95 mg/dl (65-105)
--- NOTE | 2024-08-06 11:02 | PCSTNOTE ---
ST attempted communication evaluation. Per family request, communication evaluation not deemed necessary at this time. Pt to be discharged on hospice today, 08/06.
[2024-08-06 11:52] LABS: Glucose Point of Care 122 mg/dl (65-105)
--- NOTE | 2024-08-06 12:02 | PM.DS ---
DS: Admitting Diagnosis Discharge Date 08/06/2024 Admitting Diagnosis altered mental status DS: Discharge Diagnosis Discharge Diagnosis (1) BELLO (acute kidney injury): Code(s): N17.9 - Acute kidney failure, unspecified Status: Acute (2) Adult failure to thrive: Code(s): R62.7 - Adult failure to thrive Status: Acute (3) Dementia: Code(s): F03.90 - Unspecified dementia, unspecified severity, without behavioral disturbance, psychotic disturbance, mood disturbance, and anxiety Status: Acute DS: Summary Hospital Course Hospital Course: Pt lives with her daughter who is the main caregiver. Pt has been really weak not eating and drinking for past few days daughter states she is withering away. pt not wanting to eat or drink . also noted to be increasingly confused. her memory problem has been delicing over the past few years. ED evaluation revealed BELLO likely secondary to dehydration. patient was agitated in the ED which was managed with P.r.n. Zyprexa. her BELLO did improve with hydration. Her mental status also improved with it. Palliative consultation was also obtained during the hospital stay and family opted to go home with hospice with her severe dementia Which was arranged at the discharge. Time Spent with Patient Time attestation: Total time spent providing and/or coordinating discharge services: 35 minutes Exam Narrative: APPEARANCE: Well appearing, no pain, no distress, well-nourished. Confused HEAD: normocephalic, atraumatic. EYES: PERRLA/EOMI, conjunctivae clear. NECK: Supple. No adenopathy, no masses. RESPIRATORY: Airway patent, respirations nonlabored. Clear to auscultation bilaterally, no rales, rhonchi, wheezing. CARDIOVASCULAR: Regular rate and rhythm without murmurs rubs or gallops. ABDOMINAL: Soft, nontender, nondistended, normal bowel sounds MUSCULOSKELETAL: Moves all extremities. Strength/ROM intact, No edema, No calf tenderness. NEURO: Alert confused. Cranial nerves II through XII intact. Grossly intact SKIN: Warm, dry. Normal Color DS: Data Data Completed and Pending Labs on day of discharge: Labs from last 24 hours 08/06/24 08/06/24 08/06/24 11:50 08:57 05:17 WBC 5.8 RBC 3.37 L Hgb 9.4 L Hct 30.3 L MCV 89.9 MCH 27.9 MCHC 31.0 L RDW 14.7 H Plt Count 158 MPV 10.6 H Immature Gran % (Auto) 0.2 Neut % (Auto) 68.6 Lymph % (Auto) 21.8 [place] % (Auto) 6.7 Eos % (Auto) 2.2 Baso % (Auto) 0.5 Lymph # (Auto) 1.27 [place] # (Auto) 0.4 Eos # (Auto) 0.1 Baso # (Auto) 0.0 Abs Immat Gran (auto) 0.01 Absolute Neuts (auto) 4.0 Absolute Nucleated RBC 0.000 Nucleated RBC % 0.0 Sodium 144 Potassium 5.5 H Chloride 113 H Carbon Dioxide 32 H Anion Gap -1 L BUN 16 Creatinine 1.60 H Estim Creat Clear Calc 19 Estimated GFR 30 L Glucose 119 H POC Capillary Glucose 122 H 95 Calcium 8.6 Magnesium 1.6 Total Bilirubin 0.5 AST 30 ALT 12 Alkaline Phosphatase 82 Total Protein 6.0 L Albumin 2.9 L 08/05/24 08/05/24 08/05/24 19:39 17:04 11:52 WBC RBC Hgb Hct MCV MCH MCHC RDW Plt Count MPV Immature Gran % (Auto) Neut % (Auto) Lymph % (Auto) [place] % (Auto) Eos % (Auto) Baso % (Auto) Lymph # (Auto) [place] # (Auto) Eos # (Auto) Baso # (Auto) Abs Immat Gran (auto) Absolute Neuts (auto) Absolute Nucleated RBC Nucleated RBC % Sodium Potassium Chloride Carbon Dioxide Anion Gap BUN Creatinine Estim Creat Clear Calc Estimated GFR Glucose POC Capillary Glucose 147 H 107 H 97 Calcium Magnesium Total Bilirubin AST ALT Alkaline Phosphatase Total Protein Albumin Imaging Radiologist's impression: ITS Impressions Chest X-Ray 08/04/24 13:11 IMPRESSION: No acute cardiopulmonary pathology. Head CT 08/04/24 17:30 IMPRESSION: No acute intracranial process. Discharge Plan Discharge Attending physician on discharge: Hernan Garza Discharging Clinician: Hernan Garza Anticipated Discharge Date/Time: 08/06/24 12:06 Patient Disposition: Hospice - Home Activity: as tolerated Diet: regular Patient Language: Icelandic Stand Alone Forms: General Discharge Information Follow-up/Referrals: Lissy Delgado APRN [Primary Care Provider] - 1 Week Discharge Medications: New mirtazapine [Remeron] 15 mg Tablet 7.5 mg PO HS Qty: 30 0RF Continued aspirin 81 mg tablet,delayed release (DR/EC) 81 mg PO DAILY hydrocodone-acetaminophen 7.5-325 mg tablet 1 tablet PO DAILY PRN (Reason: pain) Patient Comments: Pain Management prescribe this medication. levothyroxine 100 mcg tablet See Rx Instructions .ROUTE .COMPLEX Qty: 90 1RF Dose Instruction: TAKE 1 TABLET BY MOUTH DAILY Rx Instructions: TAKE 1 TABLET BY MOUTH DAILY metformin 500 mg tablet See Rx Instructions .ROUTE .COMPLEX Qty: 180 0RF Dose Instruction: TAKE 1 TABLET BY MOUTH TWICE DAILY Rx Instructions: TAKE 1 TABLET BY MOUTH TWICE DAILY omeprazole 40 mg capsule,delayed release(DR/EC) See Rx Instructions .ROUTE .COMPLEX Qty: 90 0RF Dose Instruction: TAKE 1 CAPSULE BY MOUTH DAILY Rx Instructions: TAKE 1 CAPSULE BY MOUTH DAILY potassium chloride 10 mEq capsule, extended release See Rx Instructions .ROUTE .COMPLEX Qty: 90 0RF Dose Instruction: TAKE 1 CAPSULE BY MOUTH DAILY Rx Instructions: TAKE 1 CAPSULE BY MOUTH DAILY atorvastatin 40 mg tablet See Rx Instructions .ROUTE .COMPLEX Qty: 90 0RF Dose Instruction: TAKE 1 TABLET BY MOUTH DAILY Rx Instructions: TAKE 1 TABLET BY MOUTH DAILY metoprolol tartrate 25 mg tablet See Rx Instructions .ROUTE .COMPLEX Qty: 180 0RF Dose Instruction: TAKE 1 TABLET BY MOUTH TWICE DAILY Rx Instructions: TAKE 1 TABLET BY MOUTH TWICE DAILY Discontinued furosemide 20 mg tablet See Rx Instructions .ROUTE .COMPLEX Qty: 270 1RF Dose Instruction: TAKE 2 TABLETS BY MOUTH THREE TIMES DAILY Rx Instructions: TAKE 2 TABLETS in am and one at night. Date of admission: 08/05/24 15:38 Primary Care Provider: Lissy Delgado Admitting Provider: Sharifa Francis Attending physician on admission: Sharifa Francis Condition: Stable
--- NOTE | 2024-08-06 12:47 | PCPTNOTE ---
Patient has discharge order put in and going home with hospices.
--- NOTE | 2024-08-06 12:52 | PCSTNOTE ---
Therapist spoke with TARA Black, who reported that patient is being discharged to Hospice this date and no longer requires skilled Speech Therapy evaluations. Family had requested no evaluations yesterday and this was confirmed today.
== END 2024-08-06 13:34 | disposition hospice, home (50) | DRG 682 ==
LOC: ANHED 15:53 → ANH2MED 18:56
PROVIDERS: Family Medicine; Physician Assistant; Admitting Provider Internal Medicine; Emergency Provider Emergency Medicine; PCP Nurse Practitioner Family; Visit Provider Internal Medicine
DX: N17.9 Acute kidney failure, unspecified (principal); E43 Unspecified severe protein-calorie malnutrition; R62.7 Adult failure to thrive; E11.42 Type 2 diabetes mellitus with diabetic polyneuropathy; E03.9 Hypothyroidism, unspecified; M48.00 Spinal stenosis, site unspecified; F03.90 Unspecified dementia, unspecified severity, without behavioral disturbance, psychotic disturbance, mood disturbance, and anxiety; Z20.822 Contact with and (suspected) exposure to COVID-19; Z96.89 Presence of other specified functional implants; Z68.26 Body mass index [BMI] 26.0-26.9, adult; Z79.82 Long term (current) use of aspirin; Z51.5 Encounter for palliative care
CPT/HCPCS: 36415; 70450; 71046; 80048; 80053; 81003; 82607; 82746; 82948; 83036; 83735; 84443; 85025; 87637; 93005; 96360; 96361; 96372; 97165; 99285; A9270; G0378; J2359; J7030

== ENCOUNTER 2024-08-07 07:05 | Emergency (ER) | payer OTHER, MEDICARE, SELFPAY ==
--- NOTE | ~2024-08-07 | XR_ITS ---
EXAMINATION: XR chest 1V portable DATE: 08/07/2024 07:32 INDICATION: Altered mental status TECHNIQUE: frontal view of the chest was obtained. COMPARISON: Chest radiograph dated 08/04/[address] abdomen and pelvis dated 02/20/2019 FINDINGS: Calcified nodules in the left lung and calcified left hilar lymph nodes consistent with old granuloma tous disease. Mild opacities at the lateral left lung base corresponding to mild lingular atelectasis /scarring along side a small left paracardial fat pad on CT. Heart size is normal. Cholecystectomy cl ips in the right upper quadrant. IMPRESSION: 1. No acute cardiopulmonary disease. Reviewed, dictated and finalized at location A. E [facility]
[2024-08-07 07:28] VITALS: BP 169/96; PULSE 104; RESP 20; TEMP 36.4; O2SAT 98
[2024-08-07 07:31] VITALS: RESP 20
[2024-08-07] MEDS: OLANZapine 10 MG INJ VIAL IM (07:41)
--- NOTE | 2024-08-07 07:56 | ED_ITS ---
HPI - General Adult General Chief complaint: Unspecified Stated complaint: combative/found on floor History of Present Illness HPI narrative: 88-year-old female who has been diagnosed with dementia who has been placed on hospice presenting combative behavior. discharged from our hospital to home hospice yesterday. She became agitated which she had been on admission. She was given 1 mg of Ativan which had a paradoxical effect and caused her to become more agitated. Family did not feel that they can handle her condition she was brought to the hospital for evaluation. Related Data Home Medications ?Medication ?Instructions ?Recorded ?Confirmed ?Last Taken ?Type aspirin 81 mg tablet,delayed 81 mg PO DAILY 11/30/19 08/04/24 Unknown History release hydrocodone 7.5 mg-acetaminophen 1 tablet PO DAILY PRN pain 11/30/19 08/04/24 Unknown History 325 mg tablet Allergies Allergy/AdvReac Type Severity Reaction Status Date / Time gabapentin Allergy Intermediate leg Verified 01/11/24 09:42 swelling prochlorperazine (From Allergy Intermediate Rash Verified 01/11/24 09:42 Compazine) promethazine (From Phenergan) Allergy Intermediate Rash Verified 01/11/24 09:42 codeine Allergy Mild itching Verified 01/11/24 09:42 metoclopramide (From Reglan) Allergy Rash Verified 01/11/24 09:42 PMFSH Past Medical History Medical History Hx of spinal stenosis 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 Screening for breast cancer Encounter for vitamin deficiency screening Screening for osteoporosis Allergic dermatitis Neuropathy Controlled diabetes mellitus with diabetic polyneuropathy, without long-term current use of insulin Abnormality, skin Hypothyroidism, unspecified Abnormal alkaline phosphatase test Essential (primary) hypertension Mixed hyperlipidemia Family History Family History Sibling Family history of malignant neoplasm Social History Social History Smoking status: Never smoker Second hand tobacco smoke exposure: No Alcohol intake: former Substance use: never Substance use type: does not use Do You Feel Safe in your Home?: Yes Lack of Transportation: No Lack of Food: Never True Current Housing: I Have Housing Concerned About Future Housing: No Difficulty Paying Gas/Electric Bills: No Difficulty Paying for Meds: No Currently Unemployed: No Education: Grade School Difficulty w/ Childcare or Family Care: No Gender identity (if verbalized by the patient): Female Spiritual care concerns: No Exam Narrative: APPEARANCE: Patient is sitting upright in bed, speaking quickly Head: atraumatic. EYES: EOMI, NOSE: Atraumatic NECK: Trachea midline RESPIRATORY: No increased rate of breathing, 90% on room air CARDIOVASCULAR: mildly tachycardic ABDOMINAL: Non-distended MUSCULOSKELETAl: No obvious deformities NEURO: Alert. Moving 4/4 extremities SKIN:: Warm, dry. Normal color PSYCHIATRIC: agitated Course Vital Signs Vital signs: Vital Signs Temperature 97.6 F 08/07/24 07:28 Pulse Rate 104 H 08/07/24 07:28 Respiratory Rate 20 08/07/24 07:28 Blood Pressure 169/96 H 08/07/24 07:28 Pulse Oximetry 98 08/07/24 07:28 Oxygen Delivery Room Air 08/07/24 07:28 Temperature 97.6 F 08/07/24 07:28 Pulse Rate 104 H 08/07/24 07:28 Respiratory Rate 20 08/07/24 07:31 Blood Pressure 169/96 H 08/07/24 07:28 Pulse Oximetry 98 08/07/24 07:28 Oxygen Delivery Room Air 08/07/24 07:28 Fraction of Inspired Oxygen 98 08/07/24 07:31 Medical Decision Making [facility] Narrative Medical decision making narrative: -Course: 88-year-old woman with severe dementia presenting agitation after receiving Ativan. She was given Zyprexa with improvement although still slightly agitated. Given a dose of Haldol improvement. Patient is still slightly agitated and performing blood draws/straight cath will definitely make the situation worse. Case discussed with Dr. Gregory. No studies or imaging necessary at this time. Patient will be admitted for further management. Vital Signs Vital Signs: Vital Signs Temperature 97.6 F 08/07/24 07:28 Pulse Rate 104 H 08/07/24 07:28 Respiratory Rate 20 08/07/24 07:28 Blood Pressure 169/96 H 08/07/24 07:28 Pulse Oximetry 98 08/07/24 07:28 Oxygen Delivery Room Air 08/07/24 07:28 Temperature 97.6 F 08/07/24 07:28 Pulse Rate 104 H 08/07/24 07:28 Respiratory Rate 20 08/07/24 07:31 Blood Pressure 169/96 H 08/07/24 07:28 Pulse Oximetry 98 08/07/24 07:28 Oxygen Delivery Room Air 08/07/24 07:28 Fraction of Inspired Oxygen 98 08/07/24 07:31 Discharge Plan Discharge Clinical Impression: Dementia Patient Disposition: Still a Patient Condition: Stable Patient Language: Tajik Prescriptions: No Action aspirin 81 mg tablet,delayed release (DR/EC) 81 mg PO DAILY hydrocodone-acetaminophen 7.5-325 mg tablet 1 tablet PO DAILY PRN (Reason: pain) Patient Comments: Pain Management prescribe this medication. mirtazapine [Remeron] 15 mg Tablet 7.5 mg PO HS Qty: 30 0RF levothyroxine 100 mcg tablet See Rx Instructions .ROUTE .COMPLEX Qty: 90 1RF Dose Instruction: TAKE 1 TABLET BY MOUTH DAILY Rx Instructions: TAKE 1 TABLET BY MOUTH DAILY metformin 500 mg tablet See Rx Instructions .ROUTE .COMPLEX Qty: 180 0RF Dose Instruction: TAKE 1 TABLET BY MOUTH TWICE DAILY Rx Instructions: TAKE 1 TABLET BY MOUTH TWICE DAILY omeprazole 40 mg capsule,delayed release(DR/EC) See Rx Instructions .ROUTE .COMPLEX Qty: 90 0RF Dose Instruction: TAKE 1 CAPSULE BY MOUTH DAILY Rx Instructions: TAKE 1 CAPSULE BY MOUTH DAILY atorvastatin 40 mg tablet See Rx Instructions .ROUTE .COMPLEX Qty: 90 0RF Dose Instruction: TAKE 1 TABLET BY MOUTH DAILY Rx Instructions: TAKE 1 TABLET BY MOUTH DAILY metoprolol tartrate 25 mg tablet See Rx Instructions .ROUTE .COMPLEX Qty: 180 0RF Dose Instruction: TAKE 1 TABLET BY MOUTH TWICE DAILY Rx Instructions: TAKE 1 TABLET BY MOUTH TWICE DAILY Follow-up/Referrals: Lissy Delgado APRN [Primary Care Provider] -
[2024-08-07] MEDS: HALOPERIDOL LACTATE 5 MG/ML VIAL IM ×2 (08:13→09:07)
[2024-08-07] MEDS: WATER, STERILE FOR INJECTION 10 ML VIAL XX (08:28)
--- NOTE | 2024-08-07 09:08 | PC.NURSE ---
PRN haldol given for restlessness
[2024-08-07 09:29] VITALS: BP 136/88; PULSE 86; RESP 16; TEMP 36.6; O2SAT 97
[2024-08-07 09:55] VITALS: BP 140/88; PULSE 87; RESP 18; TEMP 36.5; O2SAT 97
== END 2024-08-07 09:29 | disposition hospice, inpatient (51) ==
PROVIDERS: Emergency Provider Emergency Medicine; PCP Nurse Practitioner Family
DX: F03.911 Unspecified dementia, unspecified severity, with agitation (principal); I10 Essential (primary) hypertension; E11.42 Type 2 diabetes mellitus with diabetic polyneuropathy; E03.9 Hypothyroidism, unspecified; E78.2 Mixed hyperlipidemia; Z85.828 Personal history of other malignant neoplasm of skin; Z79.84 Long term (current) use of oral hypoglycemic drugs; Z79.82 Long term (current) use of aspirin; Z79.899 Other long term (current) drug therapy
CPT/HCPCS: 71045; 96372; 99285; J1630; J2359

== ENCOUNTER 2024-08-07 09:11 | HOS | payer OTHER, MEDICARE, SELFPAY ==
--- NOTE | ~2024-08-07 | XR_ITS ---
CORRECTED REPORT moved report and images to [id number] [facility] [place] [facility] 08/22/24 This report was recreated on 08/22/24. Original report was [facility]ATION: XR chest 1V portable DATE: 08/07/2024 07:32 INDICATION: Altered mental status TECHNIQUE: frontal view of the chest was obtained. COMPARISON: Chest radiograph dated 08/04/[address] abdomen and pelvis dated 02/20/2019 FINDINGS: Calcified nodules in the left lung and calcified left hilar lymph nodes consistent with old granulomatous disease. Mild opacities at the lateral left lung base corresponding to mild lingular atelectasis/scarring along side a small left paracardial fat pad on CT. Heart size is normal. Cholecystectomy clips in the right upper quadrant. IMPRESSION: 1. No acute cardiopulmonary disease. Reviewed, dictated and finalized at location A. [facility] MTDD
[2024-08-07 07:28] VITALS: BP 169/96; PULSE 104; RESP 20; TEMP 36.4; O2SAT 98
[2024-08-07 07:31] VITALS: RESP 20
--- NOTE | 2024-08-07 08:04 | ER_ITS ---
This report was moved to the correct visit on 08/17/2024. The original report was signed by Gilles Fofana MD on 08/10/24 0011. HPI - General Adult General Chief complaint: Unspecified Stated complaint: combative/found on floor History of Present Illness HPI narrative: 88-year-old female who has been diagnosed with dementia who has been placed on hospice presenting combative behavior. discharged from our hospital to home hospice yesterday. She became agitated which she had been on admission. She was given 1 mg of Ativan which had a paradoxical effect and caused her to become more agitated. Family did not feel that they can handle her condition she was brought to the hospital for evaluation. Related Data Home Medications ?Medication ?Instructions ?Recorded ?Confirmed ?Last Taken ?Type aspirin 81 mg tablet,delayed 81 mg PO DAILY 11/30/19 08/04/24 Unknown History release hydrocodone 7.5 mg-acetaminophen 1 tablet PO DAILY PRN pain 11/30/19 08/04/24 Unknown History 325 mg tablet Allergies Allergy/AdvReac Type Severity Reaction Status Date / Time gabapentin Allergy Intermediate leg Verified 01/11/24 09:42 swelling prochlorperazine (From Allergy Intermediate Rash Verified 01/11/24 09:42 Compazine) promethazine (From Phenergan) Allergy Intermediate Rash Verified 01/11/24 09:42 codeine Allergy Mild itching Verified 01/11/24 09:42 metoclopramide (From Reglan) Allergy Rash Verified 01/11/24 09:42 PMFSH Past Medical History Medical History Hx of spinal stenosis 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 Screening for breast cancer Encounter for vitamin deficiency screening Screening for osteoporosis Allergic dermatitis Neuropathy Controlled diabetes mellitus with diabetic polyneuropathy, without long-term current use of insulin Abnormality, skin Hypothyroidism, unspecified Abnormal alkaline phosphatase test Essential (primary) hypertension Mixed hyperlipidemia Family History Family History Sibling Family history of malignant neoplasm Social History Social History Smoking status: Never smoker Second hand tobacco smoke exposure: No Alcohol intake: former Substance use: never Substance use type: does not use Do You Feel Safe in your Home?: Yes Lack of Transportation: No Lack of Food: Never True Current Housing: I Have Housing Concerned About Future Housing: No Difficulty Paying Gas/Electric Bills: No Difficulty Paying for Meds: No Currently Unemployed: No Education: Grade School Difficulty w/ Childcare or Family Care: No Gender identity (if verbalized by the patient): Female Spiritual care concerns: No Exam Narrative: APPEARANCE: Patient is sitting upright in bed, speaking quickly Head: atraumatic. EYES: EOMI, NOSE: Atraumatic NECK: Trachea midline RESPIRATORY: No increased rate of breathing, 90% on room air CARDIOVASCULAR: mildly tachycardic ABDOMINAL: Non-distended MUSCULOSKELETAl: No obvious deformities NEURO: Alert. Moving 4/4 extremities SKIN:: Warm, dry. Normal color PSYCHIATRIC: agitated Course Vital Signs Vital signs: Vital Signs Temperature 97.6 F 08/07/24 07:28 Pulse Rate 104 H 08/07/24 07:28 Respiratory Rate 20 08/07/24 07:28 Blood Pressure 169/96 H 08/07/24 07:28 Pulse Oximetry 98 08/07/24 07:28 Oxygen Delivery Room Air 08/07/24 07:28 Temperature 97.6 F 08/07/24 07:28 Pulse Rate 104 H 08/07/24 07:28 Respiratory Rate 20 08/07/24 07:31 Blood Pressure 169/96 H 08/07/24 07:28 Pulse Oximetry 98 08/07/24 07:28 Oxygen Delivery Room Air 08/07/24 07:28 Fraction of Inspired Oxygen 98 08/07/24 07:31 Medical Decision Making [facility] Narrative Medical decision making narrative: -Course: 88-year-old woman with severe dementia presenting agitation after receiving Ativan. She was given Zyprexa with improvement although still slightly agitated. Given a dose of Haldol improvement. Patient is still slightly agitated and performing blood draws/straight cath will definitely make the situation worse. Case discussed with Dr. Gregory. No studies or imaging necessary at this time. Patient will be admitted for further management. Vital Signs Vital Signs: Vital Signs Temperature 97.6 F 08/07/24 07:28 Pulse Rate 104 H 08/07/24 07:28 Respiratory Rate 20 08/07/24 07:28 Blood Pressure 169/96 H 08/07/24 07:28 Pulse Oximetry 98 08/07/24 07:28 Oxygen Delivery Room Air 08/07/24 07:28 Temperature 97.6 F 08/07/24 07:28 Pulse Rate 104 H 08/07/24 07:28 Respiratory Rate 20 08/07/24 07:31 Blood Pressure 169/96 H 08/07/24 07:28 Pulse Oximetry 98 08/07/24 07:28 Oxygen Delivery Room Air 08/07/24 07:28 Fraction of Inspired Oxygen 98 08/07/24 07:31 Discharge Plan Discharge Clinical Impression: Dementia Patient Disposition: Still a Patient Condition: Stable Patient Language: Uzbek Prescriptions: No Action aspirin 81 mg tablet,delayed release (DR/EC) 81 mg PO DAILY hydrocodone-acetaminophen 7.5-325 mg tablet 1 tablet PO DAILY PRN (Reason: pain) Patient Comments: Pain Management prescribe this medication. mirtazapine [Remeron] 15 mg Tablet 7.5 mg PO HS Qty: 30 0RF levothyroxine 100 mcg tablet See Rx Instructions .ROUTE .COMPLEX Qty: 90 1RF Dose Instruction: TAKE 1 TABLET BY MOUTH DAILY Rx Instructions: TAKE 1 TABLET BY MOUTH DAILY metformin 500 mg tablet See Rx Instructions .ROUTE .COMPLEX Qty: 180 0RF Dose Instruction: TAKE 1 TABLET BY MOUTH TWICE DAILY Rx Instructions: TAKE 1 TABLET BY MOUTH TWICE DAILY omeprazole 40 mg capsule,delayed release(DR/EC) See Rx Instructions .ROUTE .COMPLEX Qty: 90 0RF Dose Instruction: TAKE 1 CAPSULE BY MOUTH DAILY Rx Instructions: TAKE 1 CAPSULE BY MOUTH DAILY atorvastatin 40 mg tablet See Rx Instructions .ROUTE .COMPLEX Qty: 90 0RF Dose Instruction: TAKE 1 TABLET BY MOUTH DAILY Rx Instructions: TAKE 1 TABLET BY MOUTH DAILY metoprolol tartrate 25 mg tablet See Rx Instructions .ROUTE .COMPLEX Qty: 180 0RF Dose Instruction: TAKE 1 TABLET BY MOUTH TWICE DAILY Rx Instructions: TAKE 1 TABLET BY MOUTH TWICE DAILY Follow-up/Referrals: Lissy Delgado APRN [Primary Care Provider] - Please be advised this is a medical document. It is intended for [id number] communication. It is written in medical language and may contain unfamiliar abbreviations or verbiage. Medical documents are intended to carry relevant information, facts as evident, and the clinical opinion of the practitioner at the time of the encounter. This report may have been done utilizing a voice recognition system. Attempts have been made to correct errors. However, there may be uncorrected grammatical, spelling, and recognition errors present. The file time of this note does not necessarily represent the time the patient was seen. Report Initialized date/time: Gilles Fofana MD 08/07/24803 Electronically signed by: Gilles Fofana MD 08/10/24 0011 MTDD
--- NOTE | 2024-08-07 09:08 | PC.NURSE ---
PRN haldol given for restlessness
[2024-08-07 09:29] VITALS: BP 136/88; PULSE 86; RESP 16; TEMP 36.6; O2SAT 97
[2024-08-07 09:55] VITALS: BP 140/88; PULSE 87; RESP 18; TEMP 36.5; O2SAT 97
--- NOTE | 2024-08-07 17:24 | PM.IMHP ---
H&P: HPI History of Present Illness Date/Time: 08/07/24 17:24 Chief Complaint: Confusion, delerium Narrative: Ms Amado is a an 88 yo female who was admitted to [facility] on 08/04 with increasing confusion. She was diagnosed with BELLO and given IVF. Workup including UA, CXR, head CT all unremarkable. Hospital Course: (taken from DC summary) Pt lives with her daughter who is the main caregiver. Pt has been really weak not eating and drinking for past few days daughter states she is withering away. pt not wanting to eat or drink . also noted to be increasingly confused. her memory problem has been delicing over the past few years. ED evaluation revealed BELLO likely secondary to dehydration. patient was agitated in the ED which was managed with P.r.n. Zyprexa. her BELLO did improve with hydration. Her mental status also improved with it. Palliative consultation was also obtained during the hospital stay and family opted to go home with hospice with her severe dementia Which was arranged at the discharge. She was admitted to [facility] hospice at home yesterday (08/06) and was doing ok. By yesterday afternoon she was getting increasingly agitated, combative. Was given ativan at home but symptoms continued to worsen and she was taken to [place] ED. There she was given Zyprexa 10 mg and 2 doses of IM haldol. She became less wild and combative but was still agitated. She was admitted to [facility] for further management. 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 Screening for breast cancer Encounter for vitamin deficiency screening Screening for osteoporosis Allergic dermatitis Neuropathy Controlled diabetes mellitus with diabetic polyneuropathy, without long-term current use of insulin Abnormality, skin Hypothyroidism, unspecified Abnormal alkaline phosphatase test Essential (primary) hypertension Mixed hyperlipidemia Family History Family History Sibling Family history of malignant neoplasm Social History Social History Smoking status: Never smoker Second hand tobacco smoke exposure: No Alcohol intake: former Substance use: never Substance use type: does not use Do You Feel Safe in your Home?: Yes Lack of Transportation: No Lack of Food: Never True Current Housing: I Have Housing Concerned About Future Housing: No Difficulty Paying Gas/Electric Bills: No Difficulty Paying for Meds: No Currently Unemployed: No Education: Grade School Difficulty w/ Childcare or Family Care: No Gender identity (if verbalized by the patient): Female Spiritual care concerns: No Meds Home Medications and Allergies Home Medications ?Medication ?Instructions ?Recorded ?Confirmed ?Type aspirin 81 mg tablet,delayed 81 mg PO DAILY 11/30/19 08/04/24 History release hydrocodone 7.5 mg-acetaminophen 1 tablet PO DAILY PRN pain 11/30/19 08/04/24 History 325 mg tablet levothyroxine 100 mcg tablet See Rx Instructions .Route 05/09/24 08/04/24 Rx .COMPLEX #90 tabs metformin 500 mg tablet See Rx Instructions .Route 05/26/24 08/04/24 Rx .COMPLEX #180 tabs atorvastatin 40 mg tablet See Rx Instructions .Route 06/28/24 08/04/24 Rx .COMPLEX #90 tabs metoprolol tartrate 25 mg tablet See Rx Instructions .Route 06/28/24 08/04/24 Rx .COMPLEX #180 tabs omeprazole 40 mg capsule,delayed See Rx Instructions .Route 06/28/24 08/04/24 Rx release .COMPLEX #90 caps mirtazapine 15 mg tablet (Remeron) 7.5 mg (1/2 x 15 mg) PO HS #30 tabs 08/06/24 Rx Allergies Allergy/AdvReac Type Severity Reaction Status Date / Time gabapentin Allergy Intermediate leg Verified 01/11/24 09:42 swelling prochlorperazine (From Allergy Intermediate Rash Verified 01/11/24 09:42 Compazine) promethazine (From Phenergan) Allergy Intermediate Rash Verified 01/11/24 09:42 codeine Allergy Mild itching Verified 01/11/24 09:42 metoclopramide (From Reglan) Allergy Rash Verified 01/11/24 09:42 Vital Signs Vital Signs - 24 hr 08/07/24 11:10 Oxygen Delivery Room Air Exam Const: General: anxious and confusion Nutritional Appearance: well nourished Orientation/consciousness: confusion Limitations: altered mental status and behavioral limitations Resp: Effort & Inspection: normal respiratory effort Extrem: General: no pedal edema Psych: Appearance: disheveled Speech and movement: Psychomotor agitation in speech present Affect: Anxious affect present Thought content: Yes Hallucination(s) present Assessment and Plan Assessment and plan (1) Acute delirium: Code(s): R41.0 - Disorientation, unspecified Status: Acute Assessment and Plan: Admit to [facility]IP to try and control behaviors to keep her safe. Social work will be assisting family to move her to a facility if that's what they choose. Continue Zyprexa, will try to give medications po. Seroquel at bedtime. Xanax prn. She has a morphine pain pump for her chronic back pain which has been effecitve, most recently filled 07/20/2024. Discussed plan with her primary caregiver Tamera and other family members, they are in agreement. (2) Dementia: Qualifiers: Dementia severity: severe Dementia behavioral or psychological symptom: with other behavioral disturbance Code(s): F03.90 - Unspecified dementia, unspecified severity, without behavioral disturbance, psychotic disturbance, mood disturbance, and anxiety Status: Acute Assessment and Plan: Her dementia has been worsening over the past couple of years. Plan will be to continue hospice care at home or in a facility once her behaviors are controlled to a point where she is safe in a different setting. She is requiting 1:1 sitter currently. The above code says without behavioral disturbance but that is incorrect. (3) Hospice care: Code(s): Z51.5 - Encounter for palliative care Status: Acute Assessment and Plan: On services with [facility] hospice which will continue. She is GIP for medication adjustment given her current delerium with agitation and combative behaviors. Today added daily Zyprexa and seroquel scheduled as well as prn zyprexa and xanax. She had 2 doses of haldol (5mg each) in the ER which were only mildly effective.
[2024-08-08 00:06] VITALS: BP 154/94; PULSE 76; RESP 18; TEMP 35.6; O2SAT 98
[2024-08-08 08:00] VITALS: BP 153/70; PULSE 99; RESP 20; TEMP 36.6; O2SAT 96
--- NOTE | 2024-08-08 12:51 | WPDPN ---
Progress Note: A&P Assessment and Plan (1) Hospice care: Code(s): Z51.5 - Encounter for palliative care Status: Acute Assessment and Plan: Continue current meds for comfort. Adjust meds as needed to optimize comfort (2) Acute delirium: Code(s): R41.0 - Disorientation, unspecified Status: Acute Assessment and Plan: Pt has been sleeping for 21+ hours. Continue current meds. Ensure pt wakes up calm and consider d/c pt back home while under care of her family. Met with family and discussed plan and they have agreed and feel comfortable. Plan Pt currently sleeping. When pt wakes, assess cognition and agitation. When pt is calmed, comfortable, and stable with med regimen, consider d/c back home with family. Time Spent With Patient Time with patient: Greater than 35 minutes Subjective Date/time seen: 08/08/24 12:51 Interval history: Pt is an 88 year old female who was admitted to [facility] yesterday due to uncontrolled agitation. PMH of dementia, delerium, hallucinations, BELLO, FTT, GERD, anemia, JENNIFER, DMII, chronic pain with pain pump. Pt was at home and attempting to crawl out of bed, being aggressive/combative with family, and hallucinating. Family called hospice and then EMS who had to restrain her for safety. Upon arrival to hospital, pt was given Haldol and Zyprexa to help control behaviors. Meds took approx 2-3 hours to work, but pt has been sleeping for now 21+ hours. Slight arousal with my assessment, but did not open eyes and quickly calmed. Poor PO intake for approx 1 month. Meds today have yet to be given due to wanting pt to continue to rest as she was up for over 30 hours before falling asleep yesterday. Review of Systems Review of Systems: ROS unobtainable: Yes unobtainable due to medical condition and unobtainable due to mental status Constitutional: Constitutional: Reports as per HPI Cardiovascular: Cardiovascular: Reports as per HPI Respiratory: Respiratory: Reports as per HPI Gastrointestinal: Gastrointestinal: Reports as per HPI Neurologic: Reports as per HPI Psychiatric: Psychiatric: Reports as per HPI Exam Const: General: comfortable and no acute distress Limitations: altered mental status Neck: Neck: normal visual inspection Chest: Chest palpation & inspection: normal inspection of the chest Resp: Effort & Inspection: normal respiratory effort Auscultation: clear to auscultation bilaterally Cardio: Rate: regular rate Rhythm: regular rhythm Heart sounds: S1 normal heart sound present and S2 normal heart sound present Peripheral pulses: Peripheral pulses 2+ throughout and radial pulses present GI: Inspection: normal to inspection GI Palp: Yes Soft to palpation Auscultation: normal bowel sounds Rectal Exam: deferred Urinary Catheter: Urinary Catheter: patent and draining and urine clear Psych: Other: lethargic Objective Data Vital Signs Vital Signs: Vital Signs - 24 hr 08/08/24 00:06 08/08/24 09:45 Temperature 35.6 C L Pulse Rate 76 Respiratory Rate 18 Blood Pressure 154/94 H Pulse Oximetry 98 Oxygen Delivery Room Air Intake/Output Intake/Output: Intake & Output 08/05/24 08/06/24 08/07/24 08/08/24 23:59 23:59 23:59 23:59 Intake Total 0 Output Total 250 Balance 0 -250 Meds/Results Medications: Active Medications Generic Name Dose Route Start Last Admin Trade Name Freq PRN Reason Stop Dose Admin Acetaminophen 650 mg 08/07/24 12:09 Acetaminophen 650 Mg Suppository RECTAL Q6H PRN Fever Alprazolam 1 mg 08/07/24 13:26 Alprazolam (*Crx) 0.5 Mg Tablet PO Q4H PRN Agitation Aspirin 81 mg 08/08/24 08:00 Aspirin 81 Mg Chewable Tablet PO DAILY@0800 JOSE Bisacodyl 10 mg 08/07/24 12:10 Bisacodyl 10 Mg Suppository RECTAL DAILY PRN Constipation Haloperidol Lactate 2 mg 08/07/24 12:13 Haloperidol Lactate 5 Mg/Ml Vial IV PUSH Q4H PRN Agitation Levothyroxine Sodium 100 mcg 08/08/24 06:30 08/08/24 06:20 Levothyroxine Sodium 100 Mcg Tablet PO Not Given DAILY@0630 JOSE Mirtazapine 15 mg 08/07/24 21:00 08/07/24 21:00 Mirtazapine 15 Mg Tablet PO Not Given HS JOSE Olanzapine 10 mg 08/08/24 09:00 Olanzapine 5 Mg Tablet PO QAM JOSE Olanzapine 5 mg 08/07/24 13:26 Olanzapine 5 Mg Tablet PO Q6H PRN AGITATION Quetiapine Fumarate 25 mg 08/07/24 21:00 08/07/24 21:00 Quetiapine Fumarate 25 Mg Tablet PO Not Given HS JOSE
[2024-08-08 20:00] VITALS: BP 156/74; PULSE 105; RESP 16; TEMP 36.6; O2SAT 94
[2024-08-09] MEDS: QUEtiapine FUMARATE 25 MG TABLET PO (00:04)
[2024-08-09] MEDS: MIRTAZAPINE 15 MG TABLET PO (00:04)
[2024-08-09 08:00] VITALS: BP 153/68; PULSE 62; RESP 18; TEMP 36.3; O2SAT 97
[2024-08-09] MEDS: ASPIRIN 81 MG CHEWABLE TABLET PO (09:49)
[2024-08-09] MEDS: OLANZapine 5 MG TABLET 10 MG PO (09:50)
--- NOTE | 2024-08-09 12:43 | P.DS_ITS ---
DS: Admitting Diagnosis Discharge Date 08/09/2024 Admitting Diagnosis uncontrolled agitation secondary to dementia DS: Discharge Diagnosis Discharge Diagnosis (1) Hospice care: Code(s): Z51.5 - Encounter for palliative care Status: Acute Assessment and Plan: * Returned home with hospice. (2) Acute delirium: Code(s): R41.0 - Disorientation, unspecified Status: Acute (3) Dementia: Code(s): F03.90 - Unspecified dementia, unspecified severity, without behavioral disturbance, psychotic disturbance, mood disturbance, and anxiety Status: Acute (4) Controlled diabetes mellitus with diabetic polyneuropathy, without long-term current use of insulin: Code(s): E11.42 - Type 2 diabetes mellitus with diabetic polyneuropathy Status: Acute (5) Essential (primary) hypertension: Code(s): I10 - Essential (primary) hypertension Status: Acute DS: Summary Hospital Course Hospital Course: Admitted due to uncontrolled agitation related to dementia. Home medications were reassessed and Zyprexa and Seroquel were added. By discharge she was calm, Ox1, and tolerating diet. Time Spent with Patient Time attestation: Total time spent providing and/or coordinating discharge services: Exam Narrative: HEENT: PERRL, sclerae nonicteric, pharyngeal mucosa pink and intact NECK: No JVD, adenopathy, or thyromegaly CHEST: Clear to auscultation. Normal effort. HEART: NL S1/S2, regular, no murmur ABDOMEN: BS+, soft, nontender, no mass, no bruits EXTREMITIES: No cyanosis, edema, or clubbing NEUROLOGIC: CN intact and symmetric to inspection. MUSCULOSKELETAL: Tone and strength symmetric. PSYCH: Alert. Oriented to person. Discharge Plan Discharge Discharging Clinician: Francis Lewis Patient Disposition: Hospice - Home Activity: as tolerated Diet: as tolerated Patient Language: Slovenian Stand Alone Forms: General Discharge Information Follow-up/Referrals: Ro Gregory DO [Physician] - Keep Reg. Scheduled Appt. Discharge Medications: New quetiapine [Seroquel] 25 mg Tablet 25 mg PO HS Qty: 30 0RF olanzapine 5 mg Tablet 5 mg PO Q6H PRN (Reason: AGITATION) Qty: 30 0RF olanzapine 5 mg Tablet 10 mg PO QAM Qty: 30 0RF alprazolam 0.5 mg Tablet 1 mg PO Q4H PRN (Reason: Agitation) Qty: 30 0RF bisacodyl 10 mg Suppository 10 mg RECTAL DAILY PRN (Reason: Constipation) Qty: 5 0RF mirtazapine [Remeron] 15 mg Tablet 15 mg PO HS Qty: 30 0RF Continued aspirin 81 mg tablet,delayed release (DR/EC) 81 mg PO DAILY hydrocodone-acetaminophen 7.5-325 mg tablet 1 tablet PO DAILY PRN (Reason: pain) Patient Comments: Pain Management prescribe this medication. levothyroxine 100 mcg tablet See Rx Instructions .ROUTE .COMPLEX Qty: 90 1RF Dose Instruction: TAKE 1 TABLET BY MOUTH DAILY Rx Instructions: TAKE 1 TABLET BY MOUTH DAILY metformin 500 mg tablet See Rx Instructions .ROUTE .COMPLEX Qty: 180 0RF Dose Instruction: TAKE 1 TABLET BY MOUTH TWICE DAILY Rx Instructions: TAKE 1 TABLET BY MOUTH TWICE DAILY omeprazole 40 mg capsule,delayed release(DR/EC) See Rx Instructions .ROUTE .COMPLEX Qty: 90 0RF Dose Instruction: TAKE 1 CAPSULE BY MOUTH DAILY Rx Instructions: TAKE 1 CAPSULE BY MOUTH DAILY atorvastatin 40 mg tablet See Rx Instructions .ROUTE .COMPLEX Qty: 90 0RF Dose Instruction: TAKE 1 TABLET BY MOUTH DAILY Rx Instructions: TAKE 1 TABLET BY MOUTH DAILY metoprolol tartrate 25 mg tablet See Rx Instructions .ROUTE .COMPLEX Qty: 180 0RF Dose Instruction: TAKE 1 TABLET BY MOUTH TWICE DAILY Rx Instructions: TAKE 1 TABLET BY MOUTH TWICE DAILY Discontinued mirtazapine [Remeron] 15 mg Tablet 7.5 mg PO HS Qty: 30 0RF Date of admission: 08/07/24 09:11 Primary Care Provider: Lissy Delgado Admitting Provider: Ro Gregory Interventions: Discharge Disposition Last Done: 08/09/24 15:20 Attending physician on admission: Ro Gregory Condition: Guarded Prognosis
--- OUTSIDE RECORDS SUMMARY | 2024-08-14 06:34 | XMS_ITS | Encounter Summary ---
Author Organization [facility] Address [address] [place] [address]. [place], [place] [id number] [place] [id number] Care Team Providers Care Wax Pattern Assembler Name Role Phone Fausto Merino DO Primary Care Provider + Reason for Visit * Reason Onset Date Comments Lab Order 10/05/2019 Encounter Details Date Type Department Care Team (Late st Contact Info) Description 10/05/2019 Telephone [facility] Medical Group Family & Internal Medicine [facility] [address] [place] [address] Fuasto Merino DO [address] [place] [address] Lab Order Social History Tobacco Use Types Packs/Day Years Used Date Smoking Tobacco: Never Smokeless Tobacco: Never Alcohol Use Standard Drinks/Week Comments Never 0 (1 standard drink = 0.6 oz pur e alcohol) AUDIT-C Answer Date Recorded Frequency of Alcohol Consumption Never 09/21/2019 Average Number of Drinks Not on file 020 Frequency of Binge Drinking Not on file 09/10 PHQ-2 Answer Date Recorded PHQ-2 Score 5 09/22/2019 Comments Unknown Sex and Gender Information Value Date Recorded Sex Assigned at Not on file Legal Sex Female 7:43 PM CDT Gender Identity Not on file Sexual Orientation Not on file documented as of this encounter Progress Notes * Lavonne Marquez RN - 10/05/2019 3:47 PM CST Spoke to Johnna at [facility] lab. Test added on. R ENERGY SYSTEMS ENGINEER * Fausto Merino DO - 10/05/2019 1:00 PM CST Are we able to add on a Vitamin B12/Folate and an iron saturation panel? R ENERGY SYSTEMS ENGINEER documented in this encounter Plan of Treatment Not on file documented as of this encounter Results * (ABNORMAL) IRON SAT PANEL (IRON,IBC,%SAT) (09/29/2019 9:12 AM SOLAR ENERGY SYSTEMS ENGINEER) IRON 29(L) 50.0 - 170.0 MCG/DL 10/05/2019 9:10 PM SOLAR ENERGY SYSTEMS ENGINEER [facility] IRON BINDING CAPACITY 337 250 - 450 MCG/DL 10/05/2019 9:10 PM SOLAR ENERGY SYSTEMS ENGINEER [facility] IRON SATURATION 9(L) 20 - 55 % 0 9:10 PM SOLAR ENERGY SYSTEMS ENGINEER [facility] 09/29/2019 9:12 AM SOLAR ENERGY SYSTEMS ENGINEER Fausto Merino DO LABORATORY Final Re sult [facility] [address] [place] [id number], [place] [phone] * VITAMIN B12 / FOLATE (09/29/2019 9:12 AM SOLAR ENERGY SYSTEMS ENGINEER) VITAMIN B12 S/P/B 344 254 - 1,320 PG/ML 10/05/2019 9:10 PM SOLAR ENERGY SYSTEMS ENGINEER [facility] FOLATE 12.9 3.1 - 17.5 NG/ML 10/05/2019 9:10 PM SOLAR ENERGY SYSTEMS ENGINEER [facility] 09/29/2019 9:12 AM SOLAR ENERGY SYSTEMS ENGINEER us Fausto Merino DO LABORATORY Final Re sult [facility] [address] [place] [address], documented in this encounter Visit Diagnoses Diagnosis Abnormal CBC- Primary Other abnormal blood chemistry documented in this encounter Additional Health Concerns Assessment Noted Time PHQ-9 Depression Total Score: 10 020 7:21 AM SOLAR ENERGY SYSTEMS ENGINEER documented as of this encounter Care Teams Wax Pattern Assembler Relationship Specialty Start Date End Date Fausto Merino DO [address] [place] [phone] PCP - General FAMILY PRACTICE 08/24/19 documented as of this encounter
--- OUTSIDE RECORDS SUMMARY | 2024-08-14 06:34 | XMS_ITS | Clinical Summary ---
Author Organization [facility] Address [address] [place] [address]. [place], [place] [phone] [place] [address] Care Team Providers Care Trimmer Press Clippings Name Role Phone Fausto Merino Primary Care Provider + Allergies Active Allergy Reactions Criticality Noted Date Comments Codeine Itching Medium 12/27/2009 Prochlorperazine Unknown 09/21/2019 Promethazine Unknown 09/21/2019 Metoclopramide Unknown 09/21/2019 Medications metFORMIN 500 MG tablet Take 500 mg by mouth 2 (two) times daily with meals. Active atorvastatin 80 MG tablet Take 40 mg by mouth nightly at bedtime. Active furosemide 20 MG tablet Take 20 mg by mouth 2 (two) times daily. Active omeprazole 40 MG capsule Take 40 mg by mouth daily. Active metoprolol succinate ER 25 MG 24 hr tablet Take 25 mg by mouth daily. Active ALPRAZolam 0.25 MG tablet Take 0.25 mg by mouth nightly as needed for Anxiety. Active levothyroxine 100 MCG tablet Take 100 mcg by mouth every morning. Active magnesium 250 MG tablet Take 250 mg by mouth daily. Active aspirin EC (ASPIRIN EC) 81 MG tablet Take 81 mg by mouth daily. Active potassium chloride CR 10 MEQ tablet Take 10 mEq by mouth daily. Active docusate sodium (STOOL SOFTENER) 100 MG capsule Take 100 mg by mouth 2 (two) times daily. Active hydrocodone-edwin taminophen 7.5-325 MG tablet TK 1 T PO BID. MAY FILL 2-15- 0 Active morphine 1 mg/ml Solution Inject into the vein continuous. 6.508 mg per day by pain pump Active BUpivacaine by Perfusion route continuous. 0.8136 mg/day by pain pump Active calcitriol 0.25 MCG capsule Take 0.25 mcg by mouth daily. Active Active Problems Problem Noted Date Diagnosed Date Type 2 diabetes mellitus wit hout complication, without long-term current use of insulin ([facility]) 10/03/2019 Hyperlipidemia 09/06/2014 Overview (09/21/2019): Hyperlipidemia Hypertension 09/06/2014 Overview (09/21/2019): Hypertension Hypothyroidism 09/06/2014 Overview (09/21/2019): Hypothyroidism Myocardial infarction ([facility]) 09/06/19 15 Overview (09/21/2019): Myocardial infarction Sleep apnea 09/06/2014 Overview (09/21/2019): Sleep apnea Immunizations Name Administration Dates Next Due Fluzone High Dose - >Age 65 (Prefilled Syringe) 06/13/2019 Family History Medical History Relation Comments None Mother Relation Status Comments Mother Social History Tobacco Use Types Packs/Day Years [...] on file Sexual Orientation Not on file Last Filed Vital Signs Vital Sign Reading Time Taken Comments Blood Pressure 126/76 09/21/2019 2:01 PM PRINTING SCREEN ASSEMBLER Pulse 63 09/21/2019 2:01 PM PRINTING SCREEN ASSEMBLER Temperature 36.8 ??C (98.3 ??F) 09/21/2019 2:01 PM CS T Respiratory Rate 16 09/21/2019 2:01 PM PRINTING SCREEN ASSEMBLER Oxygen Saturation 92% 09/21/2019 2:01 PM PRINTING SCREEN ASSEMBLER Inhaled Oxygen Concentration - - Weight 92.7 kg (204 lb 5 oz) 09/21/2019 2:01 PM PRINTING SCREEN ASSEMBLER Height 167.6 cm (5' 6 ) 09/21/2019 2:01 PM PRINTING SCREEN ASSEMBLER Body Mass Index 32.98 09/21/2019 2:01 PM PRINTING SCREEN ASSEMBLER Plan of Treatment Health Maintenance Due Date Last Done Comments ASCVD Statin 1934 Pneumococcal Vaccine: 65+ Ye ars (1 of 2 - PCV) 1940 Diabetes: Retinopathy Eye Exam 1952 DTaP, Tdap and Td Vaccines ( 1 - Tdap) 1953 Zoster Vaccines (1 of 2) 1984 Annual Medicare Wellness Visit 11/02/1999 RSV Immunization or 60+ Years (1 - 1-dose 75+ series) 2009 Hemoglobin A1C 03/29/2020 09/29/2019 ASCVD LDL 09/29/2020 09/29/2019 Lipid Panel 09/29/2020 09/29/2019 COVID-19 Vaccine (1 - 2023-2 5 season) 2024 Influenza Adult (#1) 2024 06/13/2019 Meningococcal Vaccine Aged Out No van chyna eligible based on patient's age to complete this topic RSV Immunizations Under 20 Months Aged Out No longer eligible based on patient's age to complete this topic Procedures Procedure Name Priority Date/Time Associated Diagnosis Comments HEMOGLOBIN, GLYCOSYLATED Routine 09/29/2019 9:31 AM PRINTING SCREEN ASSEMBLER Type 2 diabetes mellitus without complication, without long-term current use of insulin ([facility]) Annual physical exam LIPID PANEL Routine 09/29/2019 9:12 AM PRINTING SCREEN ASSEMBLER Screening for endocrine, metabolic and immunity disorder Screening for lipid disorders Annual physical exam from Last 3 Months or Most Recently Relevant to Health Maintenance Results * HEMOGLOBIN, GLYCOSYLATED (09/29/2019 9:31 AM PRINTING SCREEN ASSEMBLER) HGB A1C 5.6 4.2 - 6.3 % 09/29/2019 11:57 PM PRINTING SCREEN ASSEMBLER [facility] Comment: ADA GUIDELINES 2010 5.7 TO 6.4% INCREASED RISK OF DIABETES > OR = 6.5% CONSISTENT WITH DIABETES ESTIMATED AVG GLUCOSE 114 mg/dL 09/29/2019 11:57 PM [facility] 09/29/2019 9:31 AM PRINTING SCREEN ASSEMBLER us Fausto Merino DO LABORATORY Final Re sult [facility] [address] [place] [address], * (ABNORMAL) LIPID PANEL (09/29/2019 9:12 AM PRINTING SCREEN ASSEMBLER) CHOLESTEROL 127 <200 MG/DL 09/29/2019 8:45 PM [facility] TRIGLYCERIDES 149 <150 MG/DL 09/29/2019 8:45 PM [facility] HDL 37(L) >40.0 MG/DL 09/29/2019 8:45 PM [facility] LDL (CALCULATED) 60 <100 MG/DL 09/29/19 8:45 PM [facility] NON HDL CHOLESTEROL 90 <130 MG/DL 09/29 8:45 PM [facility] CHOL/HDL RATIO 3.4 0.0 - 4.5 09/29/2019 8:45 PM [facility] VLDL CALCULATION 30 5 - 55 MG/DL 09/29/2019 8:45 PM [facility] LIPID INTERPRETATION 09/29/2019 8:45 PM [facility] Comment: NIH CONCENSUS REPORT RECOMMENDATIONS: ?ADULT ?CHILD ??LOW RISK: ?CHOLESTEROL ? <200 ? <170 ?TRIGLYCERIDE ?<150 ?--- ?HDL ? >=60 ?--- ?LDL ? <100 ? <110 ??BORDERLINE: ?CHOLESTEROL ? 200-239 ?? 170-199 ?TRIGLYCERIDE ?150-199 ? --- ?HDL ?40-59 ?--- ?LDL ? 100-159 ?? 110-129 ??HIGH RISK: ?CHOLESTEROL ? >=240 ?>=200 ?TRIGLYCERIDE ?>=200 ? --- ?HDL ?<40 ?--- ?LDL ? >=160 ?>=130 09/29/2019 9:12 AM PRINTING SCREEN ASSEMBLER us Fausto Merino DO LABORATORY Final Re sult Performing Organization Address [facility]/State/ZIP Co de Phone Number [facility] [address] [place] [address], from Last 3 Months or Most Recently Relevant to Health Maintenance Insurance [employer] MEDICARE Care Teams Trimmer Press Clippings Relationship Specialty Start Date End Date Fausto Merino DO [address] [place] [id number] PCP - General FAMILY PRACTICE 08/24/19
--- OUTSIDE RECORDS SUMMARY | 2024-08-14 06:34 | XMS_ITS | Encounter Summary ---
Author Organization [facility] Address [address] [place] [address]. [place], [place] [address] [place] [address] Care Team Providers Care Home Economist Consumer Service Name Role Phone Fausto Merino DO Primary Care Provider + Encounter Details Date Type Department Care Team (Latest Contact Info) Description 09/30/2019 Scan [facility] Scanned, Documents Social History Tobacco Use Types Packs/Day Years [...] on file documented as of this encounter Plan of Treatment Not on file documented as of this encounter Visit Diagnoses Not on filedocumented in this encounter Additional Health Concerns Assessment Noted Time PHQ-9 Depression Total Score: 10 020 7:21 AM HIV PREVENTION SPECIALIST documented as of this encounter Care Teams Home Economist Consumer Service Relationship Specialty Start Date End Date Fausto Merino DO [address] [place] [id number] PCP - General FAMILY PRACTICE 08/24/19 documented as of this encounter
--- OUTSIDE RECORDS SUMMARY | 2024-08-14 06:34 | XMS_ITS | Encounter Summary ---
Author Organization [facility] Address [address] [place] [address]. [place] [address] [place] [address] Care Team Providers Care Latin American Studies Director Name Role Phone Fausto Merino DO Primary Care Provider + Encounter Details Date Type Department Care Team (Late st Contact Info) Description 09/18/2020 Orders Only [facility] Covid Vaccination Invitation [place] [phone] Mc Knowles MD Social History Tobacco Use Types Packs/Day Years [...] Depression Total Score: 10 020 7:21 AM PERSONAL CHEF documented as of this encounter Care Teams Latin American Studies Director Relationship Specialty Start Date End Date Fausto Merino DO [address] [place] [id number] PCP - General FAMILY PRACTICE 08/24/19 documented as of this encounter
--- OUTSIDE RECORDS SUMMARY | 2024-08-14 06:34 | XMS_ITS | Encounter Summary ---
Author Organization [facility] Address [address] [place] [address]. [place], [place] [address] [place] [address] Care Team Providers Care Unix Manager Name Role Phone Fausto Merino DO Primary Care Provider + Reason for Visit * Reason Onset Date Comments Appointment Request 10/22/2019 Encounter Details Date Type Department Care Team (Late st Contact Info) Description 10/22/2019 Telephone [facility] Medical Group Family & Internal Medicine [facility] [address] [place] [address] Fausto Merino DO [address] [place] [address] Appointment Request Social History Tobacco Use Types Packs/Day Years [...] as of this encounter Progress Notes * Fausto Merino DO - 02/01/2020 4:49 PM CDT Noted. * Lavonne Marquez RN - 01/03/2020 9:42 AM CDT Patient is staying with dr. Sweeney? * Fausto Merino DO - 01/02/2020 3:37 PM CDT I suspect pt canceled her appointment in November due to COVID-19. I'd still like to see her office once I come back (again at 40 minutes). We will more fully discuss all her results in office, but she needs to be on ferrous sulfate 325 mg daily to replenish iron. * Lavonne Marquez RN - 10/24/2019 8:57 AM CDT Spoke to patient; verbalized understanding. Appointment made for mid November. * Fausto Merino DO - 10/22/2019 7:56 PM CDT Please let pt know that I'd like to see her (in a 40 minute slot) to discuss her lab results and imaging results. documented in this encounter Plan of Treatment Not on file documented as of this encounter Visit Diagnoses Not on filedocumented in this encounter Additional Health Concerns Assessment Noted Time PHQ-9 Depression Total Score: 10 020 7:21 AM POULTRY HANGER documented as of this encounter Care Teams Unix Manager Relationship Specialty Start Date End Date Fausto Merino DO [address] [place] [address] PCP - General FAMILY PRACTICE 08/24/19 documented as of this encounter
--- OUTSIDE RECORDS SUMMARY | 2024-08-14 06:34 | XMS_ITS | Encounter Summary ---
Author Organization [facility] Address [facility]. [place], [place] [address] [place] [address] Care Team Providers Care Emd Teacher Name Role Phone Fausto Merino DO Primary Care Provider + Encounter Details Date Type Department Care Team (Late st Contact Info) Description 10/03/2019 Orders Only [facility] Medical Group Family & Internal Medicine [facility] [address] [place] [address] Fausto Merino DO [address] [place], [place] [id number] Social History Tobacco Use Types Packs/Day Years [...] Progress Notes * Fausto Merino DO - 10/03/2019 4:36 PM CST Medications updated based upon previous records received from Dr. Doherty's office. PROJECT ENGINEER documented in this encounter Plan of Treatment Not on file documented as of this encounter Visit Diagnoses Not on filedocumented in this encounter Additional Health Concerns Assessment Noted Time PHQ-9 Depression Total Score: 10 020 7:21 AM LEAD PROJECT ENGINEER documented as of this encounter Care Teams Emd Teacher Relationship Specialty Start Date End Date Fausto Merino DO [address] [place] [id number] PCP - General FAMILY PRACTICE 08/24/19 documented as of this encounter
--- OUTSIDE RECORDS SUMMARY | 2024-08-14 06:35 | XMS_ITS | Encounter Summary ---
Author Organization [facility] Address [address] [place] [address]. [place], [place] [address] [place] [address] Care Team Providers Care Machine Sewer Name Role Phone Pancho Lugo DO Primary Care Provider [phone] Fausto Merino DO Primary Care Provider + Reason for Visit * Reason Comments Pathology (SCAN) Encounter Details Date Type Department Care Team ([facility] Contact Info) Description 05/26/2018 Scan HEALTH INFO SRVCS Scanned, Documents Pathology (SCAN) Social History Tobacco Use Types Packs/Day Years Used Date Smoking Tobacco: Never Assessed AUDIT-C Answer Date Recorded Frequency of Alcohol [...] on file documented as of this encounter Procedures Procedure Name Priority Date/Time Associated Diagnosis Comments PATHOLOGY GENERIC (SCAN ORDER) Routine 05/26/2018 documented in this encounter Results * PATHOLOGY (05/26/2018) 05/26/2018 us Documents Scanned SCANNING Edited Result - Final [facility] documented in this encounter Visit Diagnoses Not on filedocumented in this encounter Care Teams Machine Sewer Relationship Specialty Start Date End Date Pancho Lugo DO [address] [facility] [address] [place] [address] PCP - General 02/18/11 08/23/19 Fausto Merino DO [address] [place] [address] PCP - General FAMILY PRACTICE 08/24/19 documented as of this encounter
--- OUTSIDE RECORDS SUMMARY | 2024-08-14 06:35 | XMS_ITS | Encounter Summary ---
Author Organization [facility] Address [address] [place] [address]. [place] [address] [place] [address] Care Team Providers Care Line Installer Repairer Name Role Phone Pancho Lugo DO Primary Care Provider [phone] Fausto Merino DO Primary Care Provider + Encounter Details Date Type Department Care Team (Latest Contact Info) Description 07/06/2018 Scan HEALTH INFO SRVCS Scanned, Documents Social History [...] on filedocumented in this encounter Care Teams Line Installer Repairer Relationship Specialty Start Date End Date Pancho Lugo DO [address] [facility] [place] [address] PCP - General 02/18/11 08/23/19 Fausto Merino DO [address] [place] [address] PCP - General FAMILY PRACTICE 08/24/19 documented as of this encounter
--- OUTSIDE RECORDS SUMMARY | 2024-08-14 06:35 | XMS_ITS | Encounter Summary ---
Author Organization [facility] Address [address] [place] [address]. [place] [address] [place] [address] Care Team Providers Care Fruit Or Nut Farmer Name Role Phone Pancho Lugo DO Primary Care Provider [phone] Ted Mahmood MD Primary Care Provider Unavailable Encounter Details Date Type Department Care Team (Late st Contact Info) Description 06/10/2002 Abstract [facility] CONVERSION [address] [place] [address] Ted Mahmood MD Social History Tobacco Use Types Packs/Day Years Used Date Smoking Tobacco: Never Assessed Comments Unknown Sex and Gender Information Value Date Recorded Sex Assigned at Not on file Legal Sex Female 7:43 PM CDT Gender Identity Not on file Sexual Orientation Not on file documented as of this encounter Plan of Treatment Not on file documented as of this encounter Visit Diagnoses Not on filedocumented in this encounter Care Teams Fruit Or Nut Farmer Relationship Specialty Start Date End Date Pancho Lugo DO [address] [facility] [place] [address] PCP - General 02/18/11 08/23/19 Ted Mahmood MD PCP - General 02/12/11 documented as of this encounter
--- OUTSIDE RECORDS SUMMARY | 2024-08-14 06:35 | XMS_ITS | Encounter Summary ---
Author Organization [facility] Address [address] [place] [address]. [place] [address] [place] [address] Care Team Providers Care Zookeeper Name Role Phone Pancho Lugo DO Primary Care Provider [phone] Ted Mahmood MD Primary Care Provider Unavailable Encounter Details Date Type Department Care Team (Late st Contact Info) Description 03/25/2002 Abstract [facility] CONVERSION [address] [place] [address] Ted Mahmood MD Social History Tobacco Use [...] on filedocumented in this encounter Care Teams Zookeeper Relationship Specialty Start Date End Date Pancho Lugo DO [address] [facility] [place] [address] PCP - General 02/18/11 08/23/19 Ted Mahmood MD PCP - General 02/12/11 documented as of this encounter
--- OUTSIDE RECORDS SUMMARY | 2024-08-14 06:35 | XMS_ITS | Encounter Summary ---
Author Organization [facility] Address [address] [place] [address]. [place] [address] [place] [address] Care Team Providers Care Patient Portal Representative Name Role Phone Pancho Lugo DO Primary Care Provider [phone] Ted Mahmood MD Primary Care Provider Unavailable Encounter Details Date Type Department Care Team (Late st Contact Info) Description 08/12/2001 Abstract [facility] CONVERSION [address] [place] [address] Ted Mahmood MD Social History Tobacco Use [...] on filedocumented in this encounter Care Teams Patient Portal Representative Relationship Specialty Start Date End Date Pancho Lugo DO [address] [facility] [place] [address] PCP - General 02/18/11 08/23/19 Ted Mahmood MD PCP - General 02/12/11 documented as of this encounter
--- OUTSIDE RECORDS SUMMARY | 2024-08-14 06:35 | XMS_ITS | Encounter Summary ---
Author Organization [facility] Address [address] [place] [address]. [place] [address] [place] [address] Care Team Providers Care Floor Polisher Name Role Phone Fausto Merino DO Primary Care Provider + Reason for Referral * Imaging (Routine) - Closed Specialty Diagnoses / Procedures Referred By Michele fair Referred To Contact RADIOLOGY Diagnoses Other specified soft tissue disorders Bilateral leg pain Procedures USV ART REST W MICHAELA LOW EXT Fausto Merino, [address] [place] [address] Phone: tel: fax: Referral ID Status Reason Start Date Expiration Date Visits Re quested Visits Authorized [id number] Closed 09/21/2019 10/19/2020 1 1 SUPPORT SERVICES Reason for Visit * Imaging (Routine) - Closed Specialty Diagnoses / Procedures Referred By Contac marv Referred To Contact RADIOLOGY Diagnoses Other specified soft tissue disorders Bilateral leg pain Procedures USV ART REST W MICHAELA LOW EXT Fausto Merino, DO [address] [place] [address] Phone: tel: fax: Referral ID Status Reason Start Date Expiration Date Visits Re quested Visits Authorized [id number] Closed 09/21/2019 10/19/2020 1 1 Encounter Details Date Type Department Care Team (Latest Contact Info) Description 09/26/2019 10:54 AM RN SUPPORT SERVICES - 09/26/2019 11:59 PM RN SUPPORT SERVICES Hospital Encounter [facility] Vascular Lab [address] [address] Fausto Merino, DO [address] [place] [address] Discharge Disposition: Home or Self Care (Routine Discharge) Social History Tobacco Use Types Packs/Day Years [...] on file documented as of this encounter Medications at Time of Discharge ALPRAZolam 0.25 MG tablet Take 0.25 mg by mouth nightly as needed for Anxiety. aspirin EC (ASPIRIN EC) 81 MG tablet Take 81 mg by mouth daily. atorvastatin 80 MG tablet Take 40 mg by mouth nightly at bedtime. docusate sodium (STOOL SOFTENER) 100 MG capsule Take 100 mg by mouth 2 (two) times daily. furosemide 20 MG tablet Take 20 mg by mouth 2 (two) times daily. hydrocodone-aceta minophen 7.5-325 MG tablet TK 1 T PO BID. MAY FILL 215-20 09/26/2019 levothyroxine 100 MCG tablet Take 100 mcg by mouth every morning. magnesium 250 MG tablet Take 250 mg by mouth daily. metFORMIN 500 MG tablet Take 500 mg by mouth 2 (two) times daily with meals. metoprolol succinate ER 25 MG 24 hr tablet Take 25 mg by mouth daily. omeprazole 40 MG capsule Take 40 mg by mouth daily. potassium chloride CR 10 MEQ tablet Take 10 mEq by mouth daily. documented as of this encounter Plan of Treatment Not on file documented as of this encounter Procedures Procedure Name Priority Date/Time Associated Diagnosis Comments USV ART REST W MICHAELA LOW EXT Routine 09/26/2019 11:52 AM RN SUPPORT SERVICES Other specified soft tissue disorders Bilateral leg pain documented in this encounter Results * USV ART REST W MICHAELA LOW EXT (09/26/2019 11:52 AM RN SUPPORT SERVICES) Anatomical Region Laterality Modality Extremity Vascular Ultraso und 09/26/2019 11:0 2 AM RN SUPPORT SERVICES Narrative 09/28/2019 3:21 PM RN SUPPORT SERVICES ?ARTERIAL DOPPLER - MICHAELA ?BILATERAL LOWER EXTREMITY ? VASCULAR LAB Pat.Name: ??ENEDELIA AMADO ? Pat.ID: ?[id number] ? St.Date: ?? 09/26/2019 ? Refer.MD: ??same ? Exam Time: 11:02:00 AM ? Study Type:SUE VS Arterial Doppler Legs DELANEY ??Age: ??1935,83Y ? Sex: ? FEMALE ? Sonogrphr: Kathy Santamaria RVT Lead ??Pat. Stat.:Outpatient ? History / Clinical: Pain both feet, nonspecific; ??discol toes at night bilat; ??ambul w/ walker due to joints/spine; ??no prior study; ??PMH htn, hld, dm, jani, mi, spine, joints, BMI 33 Procedures: ??Beth scale, Color Doppler imaging, Doppler Spectral Analysis Race: ?W ? ++++++++++++++++++++++++++++++++++++ SUMMARY: ++++++++++++++++++++++++++++++++++++ Ilene MICHAELA Criteria: ? >1.30 = falsely elevated, calcified vessels; ?1.00-1.29 = no signif ischemia at rest ; ?.80-.99 = mild PAD, asymptomatic; ? .50-.79 = moderate PAD, claudication; ?<.50 = severe PAD, rest pain; ?<.30 = critical PAD, necrosis, poor healing ?(Digits: ??DBI >.60 Normal; ?? <.60 Abnormal) ? (Positive Stress eval: ??MICHAELA decrease of >.20 or >20% pressure drop) Right leg: ??Common Femoral waveform is triphasic, high amplitude; Popliteal triphasic, high amplitude; ??Posterior Tibial bi-triphasic, high amplitude with MICHAELA 0 ; ??DP/Anterior Tibial biphasic, high amplitude with MICHAELA 0.89 . ??Digit flow by PPG is high amplitude with DBI 0.527 . Left leg: ??Common Femoral waveform is triphasic, high amplitude; Popliteal bi-triphasic, medium amplitude; ??Posterior Tibial biphasic, high amplitude with MICHAELA 1.04 ; ??DP/Anterior Tibial bi-triphasic, high amplitude with MICHAELA 0.967 . ??Digit flow by PPG is medium amplitude with DBI 0.495 . CONCLUSION: ?? MICHAELA right leg calcified, with toe index 0.527 , in the range of mild ischemia, asymptomatic PAD. 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 MICHAELA left leg 1.04, with toe index 0.495 , in the range of no ischemia. Waveforms suggestive of femoral-popliteal disease. Recommend follow up in 1 year. ++++++++++++++++++++++++++++++++++++ FINDINGS: ++++++++++++++++++++++++++++++++++++ ++++++++++++++++++++++++++++++++++++ MEASUREMENTS: ++++++++++++++++++++++++++++++++++++ ?DOPPLER Left ACID RETORT OPERATOR ?? ACID RETORT OPERATOR PSV ?112 cm/s ? Left Dist Pop A ?? Dist Pop A PSV ??68.1 cm/s ? Left Dist IMPREGNATING HELPER ?? Dist IMPREGNATING HELPER PSV ?87.3 cm/s ? Left Dist NORTH ?? Dist NORTH PSV ?98.2 cm/s ? Right ACID RETORT OPERATOR ?? ACID RETORT OPERATOR PSV ?104 cm/s ? Right Dist Pop A ?? Dist Pop A PSV ??85.9 cm/s ? Right Dist IMPREGNATING HELPER ?? Dist IMPREGNATING HELPER PSV ? 113 cm/s ? Right Dist NORTH ?? Dist NORTH PSV ?86.7 cm/s ?PRESSURES Right Brachial ?? Brach P ?182 mmHg ? Right Ankle DP ?? AnkleDP P ?162 mmHg ? Right Ankle PT ?? AnklePT P ?0 mmHg ? Right Great Toe ?? GreatToe P ?96 mmHg ? Right MICHAELA PT ?? MICHAELA PT ? 0 ? Right MICHAELA DP ?? MICHAELA DP ?0.89 ? Right TBI ?? TBI ?0.527 ? Left Brachial ?? Brach P ?174 mmHg ? Left Ankle DP ?? AnkleDP P ?176 mmHg ? Left Ankle PT ?? AnklePT P ?190 mmHg ? Left Great Toe ?? GreatToe P ?90 mmHg ? Left MICHAELA PT ?? MICHAELA PT ?1.04 ? Left MICHAELA DP ?? MICHAELA DP ? 0.967 ? Left TBI ?? TBI ?0.495 ? Signed 09/28/2019 03:21 PM Abdirahman Chance M.D. Procedure Note Abdirahman Chance MD - 09/28/2019 ARTERIAL DOPPLER - MICHAELA BILATERAL LOWER EXTREMITY VASCULAR LAB Pat.Name: ENEDELIA AMADO Pat.ID: [id number] .Date: 09/26/2019 : same Exam Time: 11:02:00 AM Study Type:SUE VS Arterial Doppler Legs DELANEY Age: 2 1935,83Y Sex: FEMALE Sonogrphr: Kathy Mank, RVT Lead Pat. Stat.:Outpatient History / Clinical: Pain both feet, nonspecific; discol toes at night bilat; ambul w/ walker due to joints/spine; no prior study; PMH htn, hld, dm, jani, mi, spine, joints, BMI 33 Procedures: Beth scale, Color Doppler imaging, Doppler Spectral Analysis Race: W ++++++++++++++++++++++++++++++++++++ SUMMARY: ++++++++++++++++++++++++++++++++++++ Ilene MICHAELA Criteria: >1.30 = falsely elevated, calcified vessels; 1.00-1.29 = no signif ischemia at rest ; .80-.99 = mild PAD, asymptomatic; .50-.79 = moderate PAD, claudication; <.50 = severe PAD, rest pain; <.30 = critical PAD, necrosis, poor healing (Digits: DBI >.60 Normal; <.60 Abnormal) (Positive Stress eval: MICHAELA decrease of >.20 or >20% pressure drop) Right leg: Common Femoral waveform is triphasic, high amplitude; Popliteal triphasic, high amplitude; Posterior Tibial bi-triphasic, high amplitude with MICHAELA 0 ; DP/Anterior Tibial biphasic, high amplitude with MICHAELA 0.89 . Digit flow by PPG is high amplitude with DBI 0.527 . Left leg: Common Femoral waveform is triphasic, high amplitude; Popliteal bi-triphasic, medium amplitude; Posterior Tibial biphasic, high amplitude with MICHAELA 1.04 ; DP/Anterior Tibial bi-triphasic, high amplitude with MICHAELA 0.967 . Digit flow by PPG is medium amplitude with DBI 0.495 . CONCLUSION: MICHAELA right leg calcified, with toe index 0.527 , in the range of mild ischemia, asymptomatic PAD. Waveforms suggestive of infrageniculate disease. MICHAELA left leg 1.04, with toe index 0.495 , in the range of no ischemia. Waveforms suggestive of femoral-popliteal disease. Recommend follow up in 1 year. ++++++++++++++++++++++++++++++++++++ FINDINGS: ++++++++++++++++++++++++++++++++++++ ++++++++++++++++++++++++++++++++++++ MEASUREMENTS: ++++++++++++++++++++++++++++++++++++ DOPPLER Left ACID RETORT OPERATOR ACID RETORT OPERATOR PSV 112 cm/s Left Dist Pop A Dist Pop A PSV 68.1 cm/s Left Dist IMPREGNATING HELPER Dist IMPREGNATING HELPER PSV 87.3 cm/s Left Dist NORTH Dist NORTH PSV 98.2 cm/s Right ACID RETORT OPERATOR ACID RETORT OPERATOR PSV 104 cm/s Right Dist Pop A Dist Pop A PSV 85.9 cm/s Right Dist IMPREGNATING HELPER Dist IMPREGNATING HELPER PSV 113 cm/s Right Dist NORTH Dist NORTH PSV 86.7 cm/s PRESSURES Right Brachial Brach P 182 mmHg Right Ankle DP AnkleDP P 162 mmHg Right Ankle PT AnklePT P 0 mmHg Right Great Toe GreatToe P 96 mmHg Right MICHAELA PT MICHAELA PT 0 Right MICHAELA DP MICHAELA DP 0.89 Right TBI TBI 0.527 Left Brachial Brach P 174 mmHg Left Ankle DP AnkleDP P 176 mmHg Left Ankle PT AnklePT P 190 mmHg Left Great Toe GreatToe P 90 mmHg Left MICHAELA PT MICHAELA PT 1.04 Left MICHAELA DP MICHAELA DP 0.967 Left TBI TBI 0.495 Signed 09/28/2019 03:21 PM Abdirahman Chance M.D. us Fausto Merino DO VASC Final Re sult documented in this encounter Visit Diagnoses Diagnosis Other specified soft tissue disorders Bilateral leg pain Pain in limb documented in this encounter Additional Health Concerns Assessment Noted Time PHQ-9 Depression Total Score: 10 020 7:21 AM RN SUPPORT SERVICES documented as of this encounter Care Teams Floor Polisher Relationship Specialty Start Date End Date Fausto Merino DO [address] [place] [address] PCP - General FAMILY PRACTICE 08/24/19 documented as of this encounter
--- OUTSIDE RECORDS SUMMARY | 2024-08-14 06:35 | XMS_ITS | Encounter Summary ---
Author Organization [facility] Address [address] [place] [address]. [place] [address] [place] [address] Care Team Providers Care Increment Manager Name Role Phone Pancho Lugo DO Primary Care Provider [phone] Ted Mahmood MD Primary Care Provider Unavailable Encounter Details Date Type Department Care Team (Late st Contact Info) Description 03/21/2002 Abstract [facility] CONVERSION [address] [place] [address] Ted Mahmood MD Social History Tobacco Use [...] on filedocumented in this encounter Care Teams Increment Manager Relationship Specialty Start Date End Date Pancho Lugo DO [address] [facility] [place] [address] PCP - General 02/18/11 08/23/19 Ted Mahmood MD PCP - General 02/12/11 documented as of this encounter
--- OUTSIDE RECORDS SUMMARY | 2024-08-14 06:35 | XMS_ITS | Encounter Summary ---
Author Organization [facility] Address [address] [place] [address]. [place] [address] [place] [address] Care Team Providers Care Supervisor Paste Mixing Name Role Phone Pancho Lugo DO Primary Care Provider [phone] Fausto Merino DO Primary Care Provider + Reason for Visit * Reason Comments Ultrasound (SCAN) Encounter Details Date Type Department Care Team ([facility] Contact Info) Description 08/18/2018 Scan HEALTH INFO SRVCS Scanned, Documents Ultrasound (SCAN) Social History Tobacco Use Types Packs/Day [...] Procedure Name Priority Date/Time Associated Diagnosis Comments ULTRASOUND GENERIC (SCAN ORDER) Routine 08/18/2018 documented in this encounter Results * ULTRASOUND (08/18/2018) Anatomical Region Laterality Modality Other us Documents Scanned SCANNING Edited Result - Final documented in this encounter Visit Diagnoses Not on filedocumented in this encounter Care Teams Supervisor Paste Mixing Relationship Specialty Start Date End Date Pancho Lugo DO [address] [facility] [place] [address] PCP - General 02/18/11 08/23/19 Fausto Merino DO [address] [place] [address] PCP - General FAMILY PRACTICE 08/24/19 documented as of this encounter
--- OUTSIDE RECORDS SUMMARY | 2024-08-14 06:35 | XMS_ITS | Encounter Summary ---
Author Organization [facility] Address [address] [place] [address]. [place], [place] [address] [place] [address] Care Team Providers Care Excel Analyst Name Role Phone Fausto Merino DO Primary Care Provider + Encounter Details Date Type Department Care Team (Latest Contact Info) Description 09/26/2019 Travel Social History Tobacco Use Types Packs/Day Years [...] Depression Total Score: 10 020 7:21 AM STEEL BURNER documented as of this encounter Care Teams Excel Analyst Relationship Specialty Start Date End Date Fausto Merino DO [address] [place] [address] PCP - General FAMILY PRACTICE 08/24/19 documented as of this encounter
--- OUTSIDE RECORDS SUMMARY | 2024-08-14 06:35 | XMS_ITS | Encounter Summary ---
Author Organization [facility] Address [address] [place] [address]. [place] [address] [place] [address] Care Team Providers Care Practical Nursing Teacher Name Role Phone Pancho Lugo DO Primary Care Provider [phone] Ted Mahmood MD Primary Care Provider Unavailable Encounter Details Date Type Department Care Team (Late st Contact Info) Description 06/16/2002 Abstract [facility] CONVERSION [address] [place] [address] Ted Mahmood MD Social History Tobacco Use [...] on filedocumented in this encounter Care Teams Practical Nursing Teacher Relationship Specialty Start Date End Date Pancho Lugo DO [address] [place] [address] PCP - General 02/18/11 08/23/19 Ted Mahmood MD PCP - General 02/12/11 documented as of this encounter
--- OUTSIDE RECORDS SUMMARY | 2024-08-14 06:35 | XMS_ITS | Encounter Summary ---
Author Organization [facility] Address [address] [place] [address]. [place] [address] [place] [address] Care Team Providers Care Junior Data Analyst Name Role Phone Pancho Lugo DO Primary Care Provider [phone] Ted Mahmood MD Primary Care Provider Unavailable Encounter Details Date Type Department Care Team (Late st Contact Info) Description 05/09/2002 Abstract [facility] CONVERSION [address] [place] [address] Ted Mhamood MD Social History Tobacco Use Types Packs/Day [...] on filedocumented in this encounter Care Teams Junior Data Analyst Relationship Specialty Start Date End Date Pancho Lugo DO [address] [facility] [place] [address] PCP - General 02/18/11 08/23/19 Ted Mahmood MD PCP - General 02/12/11 documented as of this encounter
--- OUTSIDE RECORDS SUMMARY | 2024-08-14 06:35 | XMS_ITS | Encounter Summary ---
Author Organization [facility] Address [address] [place] [address]. [place], [place] [address] [place] [address] Care Team Providers Care Hand Rounder Name Role Phone Fausto Merino DO Primary Care Provider + Encounter Details Date Type Department Care Team (Late st Contact Info) Description 09/29/2019 9:20 AM OYSTER GRADER Laboratory Only [facility] Medical [facility] Family & Internal Medicine [address] [phone] Social History Tobacco Use Types Packs/Day Years [...] Depression Total Score: 10 020 7:21 AM OYSTER GRADER documented as of this encounter Care Teams Hand Rounder Relationship Specialty Start Date End Date Fausto Merino DO [address] [place] [address] [id number] PCP - General FAMILY PRACTICE 08/24/19 documented as of this encounter
--- OUTSIDE RECORDS SUMMARY | 2024-08-14 06:35 | XMS_ITS | Encounter Summary ---
Author Organization [facility] Address [address] [place] [address]. [place] [address] [place] [address] Care Team Providers Care Frame Feeder Name Role Phone Pancho Lugo DO Primary Care Provider [phone] Encounter Details Date Type Department Care Team (Late st Contact Info) Description 02/18/2011 Abstract [facility] [employer] [facility] Diagnostic Imaging [address] [place] [address] Pancho Lugo DO [address] [facility] [address] [place] [address] Social History Tobacco Use Types Packs/Day Years Used Date Smoking Tobacco: Never Assessed Comments Unknown Sex and Gender Information Value Date Recorded Sex Assigned at Not on file Legal Sex Female 7:43 PM CDT Gender Identity Not on file Sexual Orientation Not on file documented as of this encounter Plan of Treatment Not on file documented as of this encounter Visit Diagnoses Diagnosis Pain in soft tissues of limb Pain in limb documented in this encounter Care Teams Frame Feeder Relationship Specialty Start Date End Date Pancho Lugo DO [address] [facility] [address] [place] [address] [place] [address] PCP - General 02/18/11 08/23/19 documented as of this encounter
--- OUTSIDE RECORDS SUMMARY | 2024-08-14 06:35 | XMS_ITS | Encounter Summary ---
Author Organization [facility] Address [address] [place] [address]. [place] [address] [place] [address] Care Team Providers Care Plane Tableman Name Role Phone Pancho Lugo DO Primary Care Provider [phone] Fausto Merino DO Primary Care Provider + Encounter Details Date Type Department Care Team (Latest Contact Info) Description 06/21/2018 Scan HEALTH INFO SRVCS Scanned, Documents Social [...] on filedocumented in this encounter Care Teams Plane Tableman Relationship Specialty Start Date End Date Pancho Lugo DO [address] [facility] [place] [address] PCP - General 02/18/11 08/23/19 Fausto Merino DO [address] [place] [address] PCP - General FAMILY PRACTICE 08/24/19 documented as of this encounter
--- OUTSIDE RECORDS SUMMARY | 2024-08-14 06:35 | XMS_ITS | Encounter Summary ---
Author Organization [facility] Address [address] [place] [address]. [place] [address] [place] [address] Care Team Providers Care Continuous Improvement Facilitator Name Role Phone Pancho Lugo DO Primary Care Provider [phone] Ted Mahmood MD Primary Care Provider Unavailable Encounter Details Date Type Department Care Team (Late st Contact Info) Description 11/21/2002 Abstract [facility] CONVERSION [address] [place] [address] Ted Mahmood MD Social History Tobacco Use [...] on filedocumented in this encounter Care Teams Continuous Improvement Facilitator Relationship Specialty Start Date End Date Pancho Lugo DO [address] [place] [address] PCP - General 02/18/11 08/23/19 Ted Mahmood MD PCP - General 02/12/11 documented as of this encounter
--- OUTSIDE RECORDS SUMMARY | 2024-08-14 06:35 | XMS_ITS | Encounter Summary ---
Author Organization [facility] Address [address] [place] [address]. [place] [address] [place] [address] Care Team Providers Care Auto Transmission Specialist Name Role Phone Pancho Lugo DO Primary Care Provider [phone] Ted Mahmood MD Primary Care Provider Unavailable Encounter Details Date Type Department Care Team (Late st Contact Info) Description 08/27/[address] [facility] CONVERSION [address] [place] [address] Ted Mahmood MD Social History Tobacco Use [...] on filedocumented in this encounter Care Teams Auto Transmission Specialist Relationship Specialty Start Date End Date Pancho Lugo DO [address] [place] [address] PCP - General 02/18/11 08/23/19 Ted Mahmood MD PCP - General 02/12/11 documented as of this encounter
--- OUTSIDE RECORDS SUMMARY | 2024-08-14 06:35 | XMS_ITS | Encounter Summary ---
Author Organization [facility] Address [address] [place] [address]. [place] [address] [place] [address] Care Team Providers Care Ordnance Handler Name Role Phone Parish Pancho Primary Care Provider [phone] , Ted Santiago MD Primary Care Provider Unavailable Encounter Details Date Type Department Care Team (Late st Contact Info) Description 09/28/2002 Abstract [facility] CONVERSION [address] [place] [address] [place] [address] [facility] [place] [address] [place] [address] Social History Tobacco Use Types Packs/Day Years [...] on filedocumented in this encounter Care Teams Ordnance Handler Relationship Specialty Start Date End Date Pancho Lugo DO [address] [facility] [address] [address] PCP - General 02/18/11 08/23/19 Ted Mahmood MD PCP - General 02/12/11 documented as of this encounter
--- OUTSIDE RECORDS SUMMARY | 2024-08-14 06:35 | XMS_ITS | Encounter Summary ---
Author Organization [facility] Address [address] [place] [address]. [place], [place] [id number] [place] [address] Care Team Providers Care Instrument Maker Apprentice Name Role Phone Fausto Merino DO Primary Care Provider + Encounter Details Date Type Department Care Team (Latest Contact Info) Description 09/29/2019 Travel Social History Tobacco Use Types Packs/Day [...] Depression Total Score: 10 020 7:21 AM CROSS TIE MAKER documented as of this encounter Care Teams Instrument Maker Apprentice Relationship Specialty Start Date End Date Fausto Merino DO [address] [place] [address] PCP - General FAMILY PRACTICE 08/24/19 documented as of this encounter
--- OUTSIDE RECORDS SUMMARY | 2024-08-14 06:35 | XMS_ITS | Encounter Summary ---
Author Organization [facility] Address [address] [place] [address]. [place] [address] [place] [address] Care Team Providers Care Legal Aide Name Role Phone Pancho Lugo DO Primary Care Provider [phone] Fausto Merino DO Primary Care Provider + Reason for Visit * Reason Comments Image (SCAN) Encounter Details Date Type Department Care Team (Latest Contact Info) Description 10/16/2017 Scan HEALTH INFO [facility] Scanned, Documents Image (SCAN) Social History Tobacco Use Types Packs/Day [...] Procedure Name Priority Date/Time Associated Diagnosis Comments IMAGE GENERIC Routine 10/16/2017 documented in this encounter Results * IMAGE STUDY (10/16/2017) Anatomical Region Laterality Modality Other us Documents Scanned SCANNING Edited Result - Final documented in this encounter Visit Diagnoses Not on filedocumented in this encounter Care Teams Legal Aide Relationship Specialty Start Date End Date Pancho Lugo DO [address] [place] [address] PCP - General 02/18/11 08/23/19 Fausto Merino DO [address] [place] [address] PCP - General FAMILY PRACTICE 08/24/19 documented as of this encounter
--- OUTSIDE RECORDS SUMMARY | 2024-08-14 06:35 | XMS_ITS | Encounter Summary ---
Author Organization [facility] Address [facility] [place] [address] [place] [address] Care Team Providers Care Moisture Machine Tender Name Role Phone Fausto Merino DO Primary Care Provider + Reason for Referral * Consultation (Urgent) - Closed Specialty Diagnoses / Procedures Referred By Michele fair Referred To Contact PODIATRY/SURGERY Diagnoses Bilateral foot pain Fausto Merino DO [address] [place] [address] Phone: tel: fax: Dean Fernandes, [facility] [address] [facility], [address] [place] [address] Phone: tel: fax: Referral ID Status Reason Start Date Expiration Date V isits Requested Visits Authorized [id number] Closed Specialty Services 09/21/2019 10/19/2020 100 100 YSIS TECH * Surgical (Urgent) - Closed Specialty Diagnoses / Procedures Referred By Contdebbie t Referred To Contact VASCULAR SURGERY / Cardiology Diagnoses Bilateral leg pain Fausto Merino DO [address] [place] [address] Phone: tel: fax: Cornel Rosales MD [address] [address] Phone: tel: fax: Referral ID Status Reason Start Date Expiration Date V isits Requested Visits Authorized [id number] Closed Specialty Services 09/21/2019 10/20/2020 1 1 YSIS TECH * Imaging (Routine) - Closed Specialty Diagnoses / Procedures Referred By Michele fair Referred To Contact RADIOLOGY Diagnoses Other specified soft tissue disorders Bilateral leg pain Procedures USV ART REST W MICHAELA LOW EXT Fausto Merino DO [address] [place] [address] Phone: tel: fax: Referral ID Status Reason Start Date Expiration Date Visits Re quested Visits Authorized [id number] Closed 09/21/2019 10/19/2020 1 1 YSIS TECH Reason for Visit * Reason Comments Establish Care Feet Leg Pain Encounter Details Date Type Department Care Team (Late st Contact Info) Description 09/21/2019 1:20 PM DIALYSIS TECH Office Visit [facility] Family & Internal Medicine [facility] [address] [place] [address] Fausto Merino DO [address] [place] [address] Establish Care; Feet; Leg Pain Social History Tobacco Use Types Packs/Day Years [...] on file documented as of this encounter Last Filed Vital Signs Vital Sign Reading Time Taken Comments Blood Pressure 126/76 09/21/2019 2:01 PM DIALYSIS TECH Pulse 63 09/21/2019 2:01 PM DIALYSIS TECH Temperature 36.8 ??C (98.3 ??F) 09/21/2019 2:01 PM CS T Respiratory Rate 16 09/21/2019 2:01 PM DIALYSIS TECH Oxygen Saturation 92% 09/21/2019 2:01 PM DIALYSIS TECH Inhaled Oxygen Concentration - - Weight 92.7 kg (204 lb 5 oz) 09/21/2019 2:01 PM DIALYSIS TECH Height 167.6 cm (5' 6 ) 09/21/2019 2:01 PM DIALYSIS TECH Body Mass Index 32.98 09/21/2019 2:01 PM DIALYSIS TECH documented in this encounter Patient Instructions * Patient Instructions* Fausto Merino DO - 09/21/2019 1:20 PM DIALYSIS TECH [facility] will call you about the leg test as well as the referrals. YSIS TECH documented in this encounter Progress Notes * Fausto Merino DO - 09/21/2019 1:20 PM CST Images from the original note were not included. GENERAL OFFICE VISIT Encounter Date: 09/21/2019 Chief Complaint: 83-year-old female presents for Establish Care; Feet; and Leg Pain HPI: Pt complains about foot pain. She states her feet wake up black on her toes. Pt notes her pain will be worse at night than in the evening. She was told a long time ago she had some vascular check. Pt and [id number] don't know if she is a diabetic, although she is on metformin at this time. Pt is not certain of her current list of medications, although we have updated them according to a list she did have available. Based upon her description of her history, she appears to have had surgery previously on both feet, but exact details are unable to be obtained. Whether or not diagnostic evaluation of her LE's and the pain regarding these is unknown based upon her description. Review of Systems Constitutional: Negative for fever. Musculoskeletal: See HPi Skin: See HPI Patient Active Problem List Diagnosis ??? Hyperlipidemia ??? Hypertension ??? Hypothyroidism ??? Myocardial infarction (CMS/HCC) ??? Sleep apnea Past Medical History: Diagnosis Date ??? Arthritis ??? Diabetes mellitus (CMS/HCC) Past Surgical History: Procedure Laterality Date ??? FOOT SURGERY x 3 bilateral ??? HYSTERECTOMY ??? PAIN PUMP DEVICE ??? SHOULDER SURGERY bilateral Family History Problem Relation Name Age of Onset ??? None Mother Social History Socioeconomic History ??? Marital status: Spouse name: Not on file ??? Number of children: Not on file ??? Years of education: Not on file ??? Highest education level: Not on file Occupational History ??? Not on file Social Needs ??? Financial resource strain: Not on file ??? Food insecurity: Worry: Not on file Inability: Not on file ??? Transportation needs: Medical: Not on file Non-medical: Not on file Tobacco Use ??? Smoking status: Never Smoker ??? Smokeless tobacco: Never Used Substance and Sexual Activity ??? Alcohol use: Never Frequency: Never ??? Drug use: Never ??? Sexual activity: Not on file Lifestyle ??? Physical activity: Days per week: Not on file Minutes per session: Not on file ??? Stress: Not on file Relationships ??? Social connections: Talks on phone: Not on file Gets together: Not on file Attends sikh service: Not on file Active member of club or organization: Not on file Attends meetings of clubs or organizations: Not on file Relationship status: Not on file ??? Intimate partner violence: Fear of current or ex partner: Not on file Emotionally abused: Not on file Physically abused: Not on file Forced sexual activity: Not on file Other Topics Concern ??? Not on file Social History Narrative ??? Not on file Immunization History Administered Date(s) Administered ? ? Fluzone High Dose - >Age 65 (Prefilled Syringe) 06/13/2019 Current Outpatient Medications Medication Sig Dispense Refill ??? ALPRAZolam 0.25 MG tablet Take 0.25 mg by mouth nightly as needed for Anxiety. ??? aspirin EC (ASPIRIN EC) 81 MG tablet Take 81 mg by mouth daily. ??? atorvastatin 80 MG tablet Take 40 mg by mouth nightly at bedtime. ??? docusate sodium (STOOL SOFTENER) 100 MG capsule Take 100 mg by mouth 2 (two) times daily. ??? furosemide 20 MG tablet Take 20 mg by mouth 2 (two) times daily. ??? levothyroxine 100 MCG tablet Take 100 mcg by mouth every morning. ??? magnesium 250 MG tablet Take 250 mg by mouth daily. ??? metFORMIN 500 MG tablet Take 500 mg by mouth 2 (two) times daily with meals. ??? metoprolol succinate ER 25 MG 24 hr tablet Take 25 mg by mouth daily. ??? omeprazole 40 MG capsule Take 40 mg by mouth daily. ??? potassium chloride CR 10 MEQ tablet Take 10 mEq by mouth daily. No current facility-administered medications for this visit. Current Outpatient Medications on File Prior to Visit Medication Sig ??? ALPRAZolam 0.25 MG tablet Take 0.25 mg by mouth nightly as needed for Anxiety. ??? aspirin EC (ASPIRIN EC) 81 MG tablet Take 81 mg by mouth daily. ??? atorvastatin 80 MG tablet Take 40 mg by mouth nightly at bedtime. ??? docusate sodium (STOOL SOFTENER) 100 MG capsule Take 100 mg by mouth 2 (two) times daily. ??? furosemide 20 MG tablet Take 20 mg by mouth 2 (two) times daily. ??? levothyroxine 100 MCG tablet Take 100 mcg by mouth every morning. ??? magnesium 250 MG tablet Take 250 mg by mouth daily. ??? metFORMIN 500 MG tablet Take 500 mg by mouth 2 (two) times daily with meals. ??? metoprolol succinate ER 25 MG 24 hr tablet Take 25 mg by mouth daily. ??? omeprazole 40 MG capsule Take 40 mg by mouth daily. ??? potassium chloride CR 10 MEQ tablet Take 10 mEq by mouth daily. No current facility-administered medications on file prior to visit. Allergies Allergen Reactions ??? Codeine Itching ??? Compazine [Prochlorperazine] Unknown ??? Phenergan [Promethazine] Unknown ??? Reglan [Metoclopramide] Unknown Objective: Filed Vitals: 09/21/19 1401 BP: 126/76 Pulse: 63 Resp: 16 Temp: 98.3 ??F (36.8 ??C) SpO2: 92% Weight: 92.7 kg (204 lb 5 oz) Height: 5' 6 (1.676 m) Physical Exam Constitutional: She is well-developed, well-nourished, and in no distress. HENT: Head: Normocephalic and atraumatic. Right Ear: External ear normal. Left Ear: External ear normal. Eyes: Conjunctivae are normal. Cardiovascular: Normal rate, regular rhythm and normal heart sounds. Exam reveals no gallop and no friction rub. No murmur heard. Pulmonary/Chest: Effort normal and breath sounds normal. No respiratory distress. She has no wheezes. She has no rales. Abdominal: Soft. Bowel sounds are normal. There is no tenderness. Nursing note and vitals reviewed. LE: Left LE: 2+ pulses in foot, xeroderma, no black coloration noted, surgical scars noted on dorsal surface of multiple toes Right LE: 1+ pulses in foot, xeroderma, left sided deviation of multiple digits . Assessment & Plan: Enedelia was seen today for establish care, feet and leg pain. Diagnoses and all orders for this visit: Encounter to establish care with new doctor Screening for endocrine, metabolic and immunity disorder - LIPID PANEL; Future - TSH W/REFLEX; Future - URIC ACID BLOOD; Future - COMPREHENSIVE METABOLIC PANEL; Future Screening for lipid disorders - LIPID PANEL; Future - CK (CPK); Future Type 2 diabetes mellitus without complication, without long-term current use of insulin ([facility]) - HEMOGLOBIN, GLYCOSYLATED; Future - ALBUMIN URINE RANDOM; Future Bilateral leg pain - USV ART REST W MICHAELA LOW EXT; Future - AMB REFERRAL TO VASCULAR SURGERY Essential hypertension - CBC W/DIFF AUTOMATED; Future BMI 32.0-32.9,adult - VITAMIN D, 25 OH; Future Other specified soft tissue disorders - USV ART REST W MICHAELA LOW EXT; Future Bilateral foot pain - AMB REFERRAL TO PODIATRY Annual physical exam - LIPID PANEL; Future - TSH W/REFLEX; Future - URIC ACID BLOOD; Future - HEMOGLOBIN, GLYCOSYLATED; Future Discussion/Summary: Pt is very poor historian as she is unsure of her medications, history, or previous diagnostics. Will order US arterial studies in B/L LEs and refer to podiatry and vascular. Will order blood work asper above. Will base f/u on these studies and her evaluation with them. Will check old records to evaluate medications. Pt v/u. Time Spent: Greater than or equal to 30 minutes were spent in direct patient consultation and the majority of that time (>50%) was spent on counseling and coordination of care. Please see Assessment & Plan for specific topics discussed during counseling and coordination of care. Fausto Merino DO YSIS TECH documented in this encounter Plan of Treatment Scheduled Referrals Name Type Priority Associated Diagnoses Orde r Schedule Ambulatory referral to Vascular Surgery (OTHER) Referral Routine Bilateral leg pain Ordered: 09/21/2019 Ambulatory referral to Podiatry (OTHER) Referral Routine Bilateral foot pain Ordered: 09/21/2019 documented as of this encounter Procedures Procedure Name Priority Date/Time Associated Diagnosis Comments COLLECTION VENOUS BLOOD VENIPUNCTURE Routine 09/29/2019 9:47 AM DIALYSIS TECH Screening for endocrine, metabolic and immunity disorder Screening for lipid disorders Type 2 diabetes mellitus without complication, without long-term current use of insulin ([facility]) Essential hypertension Annual physical exam documented in this encounter Results * HEMOGLOBIN, GLYCOSYLATED (09/29/2019 9:31 AM DIALYSIS TECH) HGB A1C 5.6 4.2 - 6.3 % 09/29/2019 11:57 PM DIALYSIS TECH [facility] Comment: ADA GUIDELINES 2010 5.7 TO 6.4% INCREASED RISK OF DIABETES > OR = 6.5% CONSISTENT WITH DIABETES ESTIMATED AVG GLUCOSE 114 mg/dL 09/29/2019 11:57 PM DIALYSIS TECH [facility] 09/29/2019 9:31 AM DIALYSIS TECH Fausto Merino DO LABORATORY Final Re sult [facility] [address] [place] [address], [place] [phone] * URIC ACID BLOOD (09/29/2019 9:12 AM DIALYSIS TECH) URIC ACID 4.4 2.6 - 6.0 MG/DL 09/29/2019 8:45 PM DIALYSIS TECH [facility] 09/29/2019 9:12 AM DIALYSIS TECH us Fausto Merino DO LABORATORY Final Re sult [facility] [address] [place] [address], [place] [phone] * (ABNORMAL) COMPREHENSIVE METABOLIC PANEL (09/29/2019 9:12 AM DIALYSIS TECH) [facility] GLUCOSE 89 70 - 99 MG/DL 09/29/2019 8:45 PM [facility] BUN 13 7 - 18 MG/DL 09/29/2019 8:45 PM [facility] CREATININE S/P/B 0.74 0.55 - 1.02 MG/DL 09/29/2019 8:45 PM [facility] SODIUM S/P/B 142 136 - 145 MMOL/L 09/29/2019 8:45 PM [facility] POTASSIUM S/P/B 3.6 3.5 - 5.1 MMOL/L 09/29/2019 8:45 PM [facility] CHLORIDE S/P/B 103 100 - 108 MMOL/L 09/29/2019 8:45 PM [facility] CO2 31.6 21 - 32 MMOL/L 09/29/2019 8:45 PM [facility] CALCIUM S/P/B 8.9 8.5 - 10.1 MG/DL 09/29/2019 8:45 PM [facility] BILIRUBIN TOTAL S/P/B 0.6 0.2 - 1.2 MG/DL 09/29/2019 8:45 PM [facility] TOTAL PROTEIN S/P/B 7.2 6.4 - 8.2 G/DL 09/29/2019 8:45 PM [facility] ALBUMIN S/P/B 3.6 3.4 - 5.0 G/DL 09/29/2019 8:45 PM [facility] AST 11(L) 15 - 37 U/L 09/29/2019 8:45 PM [facility] ALT 13(L) 14 - 55 U/L 09/29/2019 8:45 PM [facility] ALKALINE PHOSPHATASE S/P/B 127 50 - 136 U/L 09/29/2019 8:45 PM [facility] ANION GAP 7.4 5 - 15 MMOL/L 09/29/2019 8:45 PM [facility] BUN CREATININE RATIO 17.4 6 - 26 09/29/2019 8:45 PM [facility] A/G RATIO 1.0 1.0 - 2.0 RATIO 09/29/2019 8:45 PM [facility] EGFR NON-AFR. AMER. 74(L) >90 ML/MIN/1.7 3 M2 09/29/2019 8:45 PM [facility] EGFR AFR. AMER. 86(L) >90 ML/MIN/1.7 3 M2 09/29/2019 8:45 PM [facility] Comment: NOTE: eGFR is not calculated for patients <18 years of age. This is an estimated GFR (CKD EPI) and should not be used for calculating drug doses. 09/29/2019 9:12 AM DIALYSIS TECH Fausto Merino DO LABORATORY Final Re sult [facility] [address] [place] [address], [place] [phone] * CK (CPK) (09/29/2019 9:12 AM DIALYSIS TECH) CPK 37 21 - 215 U/L 09/29/2019 8:45 PM [facility] 09/29/2019 9:12 AM DIALYSIS TECH Fausto Merino DO LABORATORY Final Re sult Performing Organization Address [facility] de Phone Number [facility] [address] [place] [address], * VITAMIN D, 25 OH (09/29/2019 9:12 AM DIALYSIS TECH) VITAMIN D 25 HYDROXY S/P/B 40 30 - 100 NG/ML 09/29/2019 8:55 PM DIALYSIS TECH [facility] Comment: ? INTERPRETATION ? DEFICIENT ??<20 ? INSUFFICIENT 20-29 ?SUFFICIENT 30-100 09/29/2019 9:12 AM DIALYSIS TECH Fausto Merino DO LABORATORY Final Re sult Performing Organization Address [facility] de Phone Number [facility] [address] [place] [address], * TSH W/REFLEX (09/29/2019 9:12 AM DIALYSIS TECH) Pathologist [facility] TSH 2.370 0.358 - 3.74 uIU/ML 09/29/2019 8:45 PM DIALYSIS TECH [facility] Comment: HIGH DOSES OF BIOTIN MAY INTERFERE WITH THIS TEST RESULT. CORRELATION TO CLINICAL HISTORY AND PRESENTATION RECOMMENDED. FREE T4 NOT INDICATED 09/29/2019 9:12 AM DIALYSIS TECH Fausto Merino DO LABORATORY Final Re sult Performing Organization Address [facility] Co de Phone Number [facility] [address] [place] [address], * (ABNORMAL) LIPID PANEL (09/29/2019 9:12 AM DIALYSIS TECH) [facility] Signature CHOLESTEROL 127 <200 MG/DL 09/29/2019 8:45 PM [facility] TRIGLYCERIDES 149 <150 MG/DL 09/29/2019 8:45 PM [facility] HDL 37(L) >40.0 MG/DL 09/29/2019 8:45 PM [facility] LDL (CALCULATED) 60 <100 MG/DL 09/29/19 8:45 PM [facility] NON HDL CHOLESTEROL 90 <130 MG/DL 09/29 8:45 PM [facility] CHOL/HDL RATIO 3.4 0.0 - 4.5 09/29/2019 8:45 PM [facility] VLDL CALCULATION 30 5 - 55 MG/DL 09/29/2019 8:45 PM [facility] LIPID INTERPRETATION 09/29/2019 8:45 PM [facility] Comment: NIH CONCENSUS REPORT RECOMMENDATIONS: ?ADULT [...] ?LDL ? >=160 ?>=130 09/29/2019 9:12 AM DIALYSIS TECH us Fausto Merino DO LABORATORY Final Re sult [facility] [address] [place] [id number], [place] [phone] * (ABNORMAL) CBC W/DIFF AUTOMATED (09/29/2019 9:12 AM DIALYSIS TECH) WBC 6.7 4.5 - 11.0 x10'3/uL 09/29/2019 8:46 PM DIALYSIS TECH [facility] RBC 4.42 4.20 - 5.40 x10'6/uL 09/29/2019 8:46 PM DIALYSIS TECH [facility] HGB 11.0(L) 12.0 - 16.0 G/DL 09/29/2019 8:46 PM DIALYSIS TECH [facility] HCT 38.9 38.0 - 48.0 % 09/29/2019 8:46 PM [facility] MCV 88.0 81.0 - 99.0 FL 09/29/2019 8:46 PM [facility] MCH 24.9(L) 27.0 - 31.0 PG 09/29/2019 8:46 PM [facility] MCHC 28.3(L) 32.0 - 36.0 G/DL 09/29/2019 8:46 PM [facility] RDW 14.6(H) 11.5 - 14.5 % 09/29/2019 8:46 PM [facility] PLT 223 130 - 400 x10'3/uL 09/29/2019 8:46 PM [facility] MPV 10.4 9.3 - 12.2 FL 09/29/2019 8:46 PM [facility] DIFFERENTIAL TYPE AUTOMATED DIFFERENTIAL 09/29/2019 9:37 PM [facility] NEUTROPHILS % 63.2 % 09/29/2019 9:37 PM [facility] LYMPHOCYTES % 26.2 % 09/29/2019 9:37 PM [facility] MONOCYTES % 5.8 % 09/29/2019 9:37 PM [facility] EOSINOPHILS 4.3 % 09/29/2019 9:37 PM [facility] BASOPHILS 0.4 % 09/29/2019 9:37 PM [facility] IMMATURE GRANS % 0.1 % 09/29/19 9:37 PM [facility] ABS. NEUTROPHILS TOTAL 4.23 1.80 - 7.70 x10'3/uL 09/29/2019 9:37 PM [facility] ABS. LYMPHOCYTES 1.76 1.00 - 4.80 x10'3/uL 09/29/2019 9:37 PM DIALYSIS TECH [facility] ABS. MONOCYTES 0.39 0.24 - 0.86 x10'3/uL 09/29/2019 9:37 PM DIALYSIS TECH [facility] ABS. EOSINOPHILS 0.29 0.04 - 0.36 x10'3/uL 09/29/2019 9:37 PM [facility] ABS. BASOPHILS 0.03 0.01 - 0.08 x10'3/uL 09/29/2019 9:37 PM DIALYSIS TECH [facility] ABS. IMMATURE GRANULOCYTES 0.01 0.00 - 0.49 x10'3/uL 09/29/2019 9:37 PM [facility] RBC MORPHOLOGY SLIDE REVIEWED 2019 9:37 PM [facility] HYPOCHROMASIA 1+ 09/29/2019 9:37 PM DIALYSIS TECH [facility] PLT EST. ADEQUATE 09/29/2019 9:37 PM DIALYSIS TECH [facility] 09/29/2019 9:12 AM DIALYSIS TECH Fausto Merino DO LABORATORY Final Re sult [facility] [address] [place] [id number], * USV ART REST W MICHAELA LOW EXT (09/26/2019 11:52 AM DIALYSIS TECH) Anatomical Region Laterality Modality Extremity Vascular Ultraso und 09/26/2019 11:0 2 AM DIALYSIS TECH Narrative 09/28/2019 3:21 PM DIALYSIS TECH ?ARTERIAL DOPPLER - MICHAELA ?BILATERAL LOWER EXTREMITY ? VASCULAR LAB Pat.Name: ??ENEDELIA AMADO ? Pat.ID: ?[id number] ? St.Date: ?? 09/26/2019 ? Refer.MD: ??same ? Exam Time: 11:02:00 AM ? Study Type:SUE VS Arterial Doppler Legs DELANEY ??Age: ??1935,83Y ? Sex: ? FEMALE ? Sonogrphr: Kathy Mank, RVT Lead ??Pat. Stat.:Outpatient ? History / [...] FINDINGS: ++++++++++++++++++++++++++++++++++++ ++++++++++++++++++++++++++++++++++++ MEASUREMENTS: ++++++++++++++++++++++++++++++++++++ ?DOPPLER Left TALLOW REFINER ?? TALLOW REFINER PSV ?112 cm/s ? Left Dist Pop A ?? Dist Pop A PSV ??68.1 cm/s ? Left Dist FOAM CASTER ?? Dist FOAM CASTER PSV ?87.3 cm/s ? Left Dist NORTH ?? Dist NORTH PSV ?98.2 cm/s ? Right TALLOW REFINER ?? TALLOW REFINER PSV ?104 cm/s ? Right Dist Pop A ?? Dist Pop A PSV ??85.9 cm/s ? Right Dist FOAM CASTER ?? Dist FOAM CASTER PSV ? 113 cm/s ? Right Dist [...] MICHAELA BILATERAL LOWER EXTREMITY VASCULAR LAB Pat.Name: AGUILAENEDELIA Sedrick Pat.ID: [id number] .Date: 09/26/2019 : same Exam Time: 11:02:00 AM Study Type:SUE VS Arterial Doppler Legs DELANEY Age: 3 1935,83Y Sex: FEMALE Sonogrphr: Kathy Santamaria RVT Lead Pat. Stat.:Outpatient History / Clinical: [...] FINDINGS: ++++++++++++++++++++++++++++++++++++ ++++++++++++++++++++++++++++++++++++ MEASUREMENTS: ++++++++++++++++++++++++++++++++++++ DOPPLER Left TALLOW REFINER TALLOW REFINER PSV 112 cm/s Left Dist Pop A Dist Pop A PSV 68.1 cm/s Left Dist FOAM CASTER Dist FOAM CASTER PSV 87.3 cm/s Left Dist NORTH Dist NORTH PSV 98.2 cm/s Right TALLOW REFINER TALLOW REFINER PSV 104 cm/s Right Dist Pop A Dist Pop A PSV 85.9 cm/s Right Dist FOAM CASTER Dist FOAM CASTER PSV 113 cm/s Right Dist NORTH Dist [...] documented in this encounter Visit Diagnoses Diagnosis Encounter to establish care with new doctor- Primary Other reasons for seeking consultation Screening for endocrine, metabolic and immunity disorder Screening for lipid disorders Type 2 diabetes mellitus without complication, without long-term current use of insulin (CMS/HCC HHS/HCC) Bilateral leg pain Pain in limb Essential hypertension Unspecified essential hypertension BMI 32.0-32.9,adult Body Mass Index 32.0-32.9, adult Other specified soft tissue disorders Bilateral foot pain Pain in limb Annual physical exam Routine general medical examination at a health care facility Other specified soft tissue disorders Bilateral leg pain Pain in limb documented in this encounter Additional Health Concerns Assessment Noted Time PHQ-9 Depression Total Score: 10 09/22/ 020 7:21 AM DIALYSIS TECH documented as of this encounter Care Teams Moisture Machine Tender Relationship Specialty Start Date End Date Fausto Merino DO [address] [place] [id number] PCP - General FAMILY PRACTICE 08/24/19 documented as of this encounter
--- OUTSIDE RECORDS SUMMARY | 2024-08-14 06:35 | XMS_ITS | Encounter Summary ---
Author Organization [facility] Address [address] [place] [address]. [place], [place] [address] [place] [address] Care Team Providers Care Cabin Crew Name Role Phone Fausto Merino DO Primary Care Provider + Encounter Details Date Type Department Care Team (Latest Contact Info) Description 09/29/2019 5:51 PM ROLL FORMER - 09/29/2019 11:59 PM [facility] Encounter [facility] [place] [address] Fausto Merino DO [address] [place], [place] [id number] Discharge Disposition: Home or Self Care (Routine [...] TK 1 T PO BID. MAY FILL 2-09/26/2019 levothyroxine 100 MCG tablet Take 100 mcg [...] Comments HEMOGLOBIN, GLYCOSYLATED Routine 09/29/2019 9:31 AM ROLL FORMER Type 2 diabetes mellitus without complication, without long-term current use of insulin ([facility]) Annual physical exam TSH W/REFLEX Routine 09/29/2019 9:12 AM ROLL FORMER Screening for endocrine, metabolic and immunity disorder Annual physical exam COMPREHENSIVE METABOLIC PANEL Routine 09/29/2019 9:12 AM ROLL FORMER Screening for endocrine, metabolic and immunity disorder LIPID PANEL Routine 09/29/2019 9:12 AM ROLL FORMER Screening for endocrine, metabolic and immunity disorder Screening for lipid disorders Annual physical exam CBC W/DIFF AUTOMATED Routine 09/29/2019 9:12 AM ROLL FORMER Essential hypertension VITAMIN D, 25 OH Routine 09/29/2019 9:12 AM ROLL FORMER BMI 32.0-32.9,adult CK (CPK) Routine 09/29/2019 9:12 AM ROLL FORMER Screening for lipid disorders URIC ACID BLOOD Routine 09/29/2019 9:12 AM ROLL FORMER Screening for endocrine, metabolic and immunity disorder Annual physical exam documented in this encounter Results * HEMOGLOBIN, GLYCOSYLATED (09/29/2019 9:31 AM ROLL FORMER) HGB A1C 5.6 4.2 - 6.3 % 09/29/2019 11:[address] [facility] Comment: ADA GUIDELINES 2010 5.7 TO 6.4% INCREASED RISK OF DIABETES > OR = 6.5% CONSISTENT WITH DIABETES ESTIMATED AVG GLUCOSE 114 mg/dL 09/29/2019 11:[address] [facility] 09/29/2019 9:31 AM ROLL FORMER Fausto Merino DO LABORATORY Final Re sult Performing Organization Address City/[facility]/ZIP Co de Phone Number [facility] [address] [place] [address], [place] [phone] * URIC ACID BLOOD (09/29/2019 9:12 AM ROLL FORMER) URIC ACID 4.4 2.6 - 6.0 MG/DL 09/29/2019 8:[address] [facility] 09/29/2019 9:12 AM ROLL FORMER Fausto Merino DO LABORATORY Final Re sult [facility] [address] [place] [address], [place] [phone] * (ABNORMAL) COMPREHENSIVE METABOLIC PANEL (09/29/2019 9:12 AM ROLL FORMER) GLUCOSE 89 70 - 99 MG/DL 09/29/2019 8:[address] [facility] BUN 13 7 - 18 MG/DL 09/29/2019 8:[address] [facility] CREATININE S/P/B 0.74 0.55 - 1.02 MG/DL 09/29/2019 8:45 PM [facility] SODIUM S/P/B 142 136 - 145 MMOL/L 09/29/2019 8:45 PM [facility] POTASSIUM S/P/B 3.6 3.5 - 5.1 MMOL/L 09/29/2019 8:45 PM [facility] CHLORIDE S/P/B 103 100 - 108 MMOL/L 09/29/2019 8:45 PM [facility] CO2 31.6 21 - 32 MMOL/L 09/29/2019 8:45 PM [facility] CALCIUM S/P/B 8.9 8.5 - 10.1 MG/DL 09/29/2019 8:45 PM [facility] BILIRUBIN TOTAL S/P/B 0.6 0.2 - 1.2 MG/DL 09/29/2019 8:45 PM [facility] TOTAL PROTEIN S/P/B 7.2 6.4 - 8.2 G/DL 09/29/2019 8:45 PM [facility] ALBUMIN S/P/B 3.6 3.4 - 5.0 G/DL 09/29/2019 8:45 PM [facility] AST 11(L) 15 - 37 U/L 09/29/2019 8:45 PM [facility] ALT 13(L) 14 - 55 U/L 09/29/2019 8:45 PM [facility] ALKALINE PHOSPHATASE S/P/B 127 50 - 136 U/L 09/29/2019 8:45 PM [facility] ANION GAP 7.4 5 - 15 MMOL/L 09/29/2019 8:45 PM [facility] BUN CREATININE RATIO 17.4 6 - 26 09/29/2019 8:[address] [facility] A/G RATIO 1.0 1.0 - 2.0 RATIO 09/29/2019 8:45 PM [facility] EGFR NON-AFR. AMER. 74(L) >90 ML/MIN/1.7 3 M2 09/29/2019 8:45 PM [facility] EGFR AFR. AMER. 86(L) >90 ML/MIN/1.7 3 M2 09/29/2019 8:45 PM [facility] Comment: NOTE: eGFR is not calculated for patients <18 years of age. This is an estimated GFR (CKD EPI) and should not be used for calculating drug doses. 09/29/2019 9:12 AM ROLL FORMER Fausto Merino DO LABORATORY Final Re sult Performing Organization Address City/[facility]/ZIP Co de Phone Number [facility] [address] [place] [address], [place] [phone] * CK (CPK) (09/29/2019 9:12 AM ROLL FORMER) CPK 37 21 - 215 U/L 09/29/2019 8:45 PM [facility] 09/29/2019 9:12 AM ROLL FORMER Fausto Prem Merino DO LABORATORY Final Re sult [facility] [address] [place] [address], [place] [phone] * VITAMIN D, 25 OH (09/29/2019 9:12 AM ROLL FORMER) VITAMIN D 25 HYDROXY S/P/B 40 30 - 100 NG/ML 09/29/2019 8:[address] [facility] Comment: ? INTERPRETATION ? DEFICIENT ??<20 ? INSUFFICIENT 20-29 ?SUFFICIENT 30-100 09/29/2019 9:12 AM ROLL FORMER Fausto Merino DO LABORATORY Final Re sult Performing Organization Address [facility] de Phone Number [facility] [address] [place] [address], * TSH W/REFLEX (09/29/2019 9:12 AM ROLL FORMER) TSH 2.370 0.358 - 3.74 uIU/ML 09/29/2019 8:45 PM [facility] Comment: HIGH DOSES OF BIOTIN MAY INTERFERE WITH THIS TEST RESULT. CORRELATION TO CLINICAL HISTORY AND PRESENTATION RECOMMENDED. FREE T4 NOT INDICATED 09/29/2019 9:12 AM ROLL FORMER Fausto Merino DO LABORATORY Final Re sult Performing Organization Address [facility] de Phone Number [facility] [address] [place] [address], * (ABNORMAL) LIPID PANEL (09/29/2019 9:12 AM ROLL FORMER) CHOLESTEROL 127 <200 MG/DL 09/29/2019 8:[address] [facility] TRIGLYCERIDES 149 <150 MG/DL 09/29/2019 8:45 PM [facility] HDL 37(L) >40.0 MG/DL 09/29/2019 8:45 PM ROLL FORMER [facility] LDL (CALCULATED) 60 <100 MG/DL 09/29/19 8:45 PM [facility] NON HDL CHOLESTEROL 90 <130 MG/DL 09/29 8:45 PM [facility] CHOL/HDL RATIO 3.4 0.0 - 4.5 09/29/2019 8:45 PM [facility] VLDL CALCULATION 30 5 - 55 MG/DL 09/29/2019 8:45 PM [facility] LIPID INTERPRETATION 09/29/2019 8:45 PM [facility] Comment: NIH [facility] REPORT RECOMMENDATIONS: [...] ?LDL ? >=160 ?>=130 09/29/2019 9:12 AM ROLL FORMER Fausto Merino DO LABORATORY Final Re sult [facility] [address] [place] [address], * (ABNORMAL) CBC W/DIFF AUTOMATED (09/29/2019 9:12 AM ROLL FORMER) WBC 6.7 4.5 - 11.0 x10'3/uL 09/29/2019 8:46 PM [facility] RBC 4.42 4.20 - 5.40 x10'6/uL 09/29/2019 8:46 PM [facility] HGB 11.0(L) 12.0 - 16.0 G/DL 09/29/2019 8:46 PM [facility] HCT 38.9 38.0 - 48.0 % 09/29/2019 8:46 PM [facility] MCV 88.0 81.0 - 99.0 FL 09/29/2019 8:46 PM [facility] MCH 24.9(L) 27.0 - 31.0 PG 09/29/2019 8:46 PM [facility] MCHC 28.3(L) 32.0 - 36.0 G/DL 09/29/2019 8:46 PM [facility] RDW 14.6(H) 11.5 - 14.5 % 09/29/2019 8:46 PM [facility] PLT 223 130 - 400 x10'3/uL 09/29/2019 8:46 PM [facility] MPV 10.4 9.3 - 12.2 FL 09/29/2019 8:46 PM [facility] DIFFERENTIAL TYPE AUTOMATED DIFFERENTIAL 09/29/2019 9:37 PM [facility] NEUTROPHILS % 63.2 % 09/29/2019 9:37 PM [facility] LYMPHOCYTES % 26.2 % 09/29/2019 9:37 PM [facility] MONOCYTES % 5.8 % 09/29/2019 9:37 PM [facility] EOSINOPHILS 4.3 % 09/29/2019 9:37 PM [facility] BASOPHILS 0.4 % 09/29/2019 9:37 PM [facility] IMMATURE GRANS % 0.1 % 09/29/19 9:37 PM [facility] ABS. NEUTROPHILS TOTAL 4.23 1.80 - 7.70 x10'3/uL 09/29/2019 9:37 PM [facility] ABS. LYMPHOCYTES 1.76 1.00 - 4.80 x10'3/uL 09/29/2019 9:37 PM [facility] ABS. MONOCYTES 0.39 0.24 - 0.86 x10'3/uL 09/29/2019 9:37 PM [facility] ABS. EOSINOPHILS 0.29 0.04 - 0.36 x10'3/uL 09/29/2019 9:37 PM [facility] ABS. BASOPHILS 0.03 0.01 - 0.08 x10'3/uL 09/29/2019 9:37 PM [facility] ABS. IMMATURE GRANULOCYTES 0.01 0.00 - 0.49 x10'3/uL 09/29/2019 9:[address] [facility] RBC MORPHOLOGY SLIDE REVIEWED 2019 9:[address] [facility] HYPOCHROMASIA 1+ 09/29/2019 9:[address] [facility] PLT EST. ADEQUATE 09/29/2019 9:[address] [facility] 09/29/2019 9:12 AM ROLL FORMER Fausto Merino DO LABORATORY Final Re sult [facility] [address] [place] [address], [place] [phone] documented in this encounter Visit Diagnoses Diagnosis Essential hypertension Unspecified essential hypertension Screening for endocrine, metabolic and immunity disorder Screening for lipid disorders Annual physical exam Routine general medical examination at a health care facility BMI 32.0-32.9,adult Body Mass Index 32.0-32.9, adult Type 2 diabetes mellitus without complication, without long-term current use of insulin ([facility]) documented in this encounter Additional Health Concerns Assessment Noted Time PHQ-9 Depression Total Score: 10 020 7:21 AM ROLL FORMER documented as of this encounter Care Teams Cabin Crew Relationship Specialty Start Date End Date Fausto Merino DO [address] [place] [address] PCP - General FAMILY PRACTICE 08/24/19 documented as of this encounter
--- OUTSIDE RECORDS SUMMARY | 2024-08-14 06:35 | XMS_ITS | Encounter Summary ---
Author Organization [facility] Address [address] [place] [address]. [place], [place] [address] [place] [address] Care Team Providers Care Structural Metal Fabricator Apprentice Name Role Phone Pancho Lugo DO Primary Care Provider [phone] Fausto Merino DO Primary Care Provider + Reason for Visit * Reason Comments Lab (SCAN) Encounter Details Date Type Department Care Team (Latest Contact Info) Description 01/14/2018 Scan HEALTH INFO [facility] Scanned, Documents Lab (SCAN) Social History Tobacco Use Types Packs/Day [...] Procedure Name Priority Date/Time Associated Diagnosis Comments OUTSIDE LAB (SCAN ORDER) Routine 01/14/2018 documented in this encounter Results * OUTSIDE LAB (01/14/2018) 01/14/2018 us Documents Scanned SCANNING Edited Result - [facility] documented in this encounter Visit Diagnoses Not on filedocumented in this encounter Care Teams Structural Metal Fabricator Apprentice Relationship Specialty Start Date End Date Pancho Lugo DO [address] [place] [address] [place] [address] PCP - General 02/18/11 08/23/19 Fausto Merino DO [address] [place] [address] PCP - General FAMILY PRACTICE 08/24/19 documented as of this encounter
--- OUTSIDE RECORDS SUMMARY | 2024-08-14 06:35 | XMS_ITS | Encounter Summary ---
Author Organization [facility] Address [address] [place] [address]. [place] [address] [place] [address] Care Team Providers Care Rehab Therapy Manager Name Role Phone Pancho Lugo DO Primary Care Provider [phone] Fausto Merino DO Primary Care Provider + Encounter Details Date Type Department Care Team (Latest Contact Info) Description 06/06/2019 Scan HEALTH INFO SRVCS Scanned, Documents Social [...] on filedocumented in this encounter Care Teams Rehab Therapy Manager Relationship Specialty Start Date End Date Pancho Lugo DO [address] [facility] [place] [address] PCP - General 02/18/11 08/23/19 Fausto Merino DO [address] [place] [address] PCP - General FAMILY PRACTICE 08/24/19 documented as of this encounter
--- OUTSIDE RECORDS SUMMARY | 2024-08-14 06:35 | XMS_ITS | Encounter Summary ---
Author Organization [facility] Address [address] [place] [address]. [place], [place] [address] [place] [address] Care Team Providers Care Track Mechanic Name Role Phone Fausto Merino DO Primary Care Provider + Encounter Details Date Type Department Care Team (Latest Contact Info) Description 09/29/2019 8:29 PM SCREENING UNIT REGISTERED NURSE - 09/29/2019 11:59 PM [email or web address] Hospital Encounter [facility] [place] [address] Fausto Merino DO [address] [place], [place] [id number] Discharge Disposition: Home or Self Care (Routine [...] TK 1 T PO BID. MAY FILL 2-1509/26/2019 levothyroxine 100 MCG tablet Take 100 mcg [...] Procedure Name Priority Date/Time Associated Diagnosis Comments VITAMIN B12 / FOLATE Routine 09/29/2019 9:12 AM SCREENING UNIT REGISTERED NURSE Abnormal CBC IRON SAT PANEL (IRON,IBC,%SAT) Routine 09/29/2019 9:12 AM SCREENING UNIT REGISTERED NURSE Abnormal CBC documented in this encounter Results * VITAMIN B12 / FOLATE (09/29/2019 9:12 AM SCREENING UNIT REGISTERED NURSE) VITAMIN B12 S/P/B 344 254 - 1,320 PG/ML 10/05/2019 9:10 PM SCREENING UNIT REGISTERED NURSE [facility] FOLATE 12.9 3.1 - 17.5 NG/ML 10/05/2019 9:10 PM SCREENING UNIT REGISTERED NURSE [facility] 09/29/2019 9:12 AM SCREENING UNIT REGISTERED NURSE Fausto Merino DO LABORATORY Final Re sult [facility] [address] [place] [address], [place] [phone] * (ABNORMAL) IRON SAT PANEL (IRON,IBC,%SAT) (09/29/2019 9:12 AM SCREENING UNIT REGISTERED NURSE) IRON 29(L) 50.0 - 170.0 MCG/DL 10/05/2019 9:10 PM SCREENING UNIT REGISTERED NURSE [facility] IRON BINDING CAPACITY 337 250 - 450 MCG/DL 10/05/2019 9:10 PM SCREENING UNIT REGISTERED NURSE [facility] IRON SATURATION 9(L) 20 - 55 % 0 9:10 PM SCREENING UNIT REGISTERED NURSE [facility] 09/29/2019 9:12 AM SCREENING UNIT REGISTERED NURSE Fausto Merino DO LABORATORY Final Re sult [facility] [address] [place] [address], documented in this encounter Visit Diagnoses Diagnosis Abnormal CBC Other abnormal blood chemistry documented in this encounter Additional Health Concerns Assessment Noted Time PHQ-9 Depression Total Score: 10 020 7:21 AM SCREENING UNIT REGISTERED NURSE documented as of this encounter Care Teams Track Mechanic Relationship Specialty Start Date End Date Fausto Merino DO [address] [place] [address] PCP - General FAMILY PRACTICE 08/24/19 documented as of this encounter
--- OUTSIDE RECORDS SUMMARY | 2024-08-14 06:35 | XMS_ITS | Encounter Summary ---
Author Organization [facility] Address [address] [place] [address]. [place] [address] [place] [address] Care Team Providers Care Systems Testing Laboratory Technician Name Role Phone Fausto Merino DO Primary Care Provider + Encounter Details Date Type Department Care Team (Late st Contact Info) Description 09/23/2019 Scan [facility], [address] [address] Scanned, Documents Social History Tobacco Use Types [...] Depression Total Score: 10 020 7:21 AM PIT WORKER POWER SHOVEL documented as of this encounter Care Teams Systems Testing Laboratory Technician Relationship Specialty Start Date End Date Fausto Merino DO [address] [place] [address] PCP - General FAMILY PRACTICE 08/24/19 documented as of this encounter
--- OUTSIDE RECORDS SUMMARY | 2024-08-14 06:35 | XMS_ITS | Encounter Summary ---
Author Organization [facility] Address [address] [place] [address]. [place] [address] [place] [address] Care Team Providers Care Structural Metal Fabricator Apprentice Name Role Phone Pancho Lugo DO Primary Care Provider [phone] Ted Mahmood MD Primary Care Provider Unavailable Encounter Details Date Type Department Care Team (Late st Contact Info) Description 04/12/[address] [facility] CONVERSION [address] [place] [address] Ted Mahmood MD Social History Tobacco Use [...] End Date Pancho Lugo DO [address] [facility] [place] [address] PCP - General 02/18/11 08/23/19 Ted Mahmood MD PCP - General 02/12/11 documented as of this encounter
--- OUTSIDE RECORDS SUMMARY | 2024-08-14 06:35 | XMS_ITS | Encounter Summary ---
Author Organization [facility] Address [address] [place] [address]. [place] [address] [place] [address] Care Team Providers Care Casing Worker Name Role Phone Pancho Lugo DO Primary Care Provider [phone] Fausto Merino DO Primary Care Provider + Reason for Visit * Reason Comments Mammogram (SCAN) Encounter Details Date Type Department Care Team ([facility] Contact Info) Description 04/19/2018 Scan HEALTH INFO [facility] Scanned, Documents Mammogram (SCAN) Social History Tobacco Use Types Packs/Day [...] Procedure Name Priority Date/Time Associated Diagnosis Comments MAMMOGRAM GENERIC (SCAN ORDER) Routine 04/19/2018 documented in this encounter Results * MAMMOGRAM (04/19/2018) Anatomical Region Laterality Modality Other us Documents Scanned SCANNING Edited Result - Final documented in this encounter Visit Diagnoses Not on filedocumented in this encounter Care Teams Casing Worker Relationship Specialty Start Date End Date Pancho Lugo DO [address] [facility] [place] [address] PCP - General 02/18/11 08/23/19 Fausto Merino DO [address] [place] [address] PCP - General FAMILY PRACTICE 08/24/19 documented as of this encounter
--- OUTSIDE RECORDS SUMMARY | 2024-08-14 06:35 | XMS_ITS | Encounter Summary ---
Author Organization [facility] Address [address] [place] [address]. [place] [address] [place] [address] Care Team Providers Care Condenser Tester Name Role Phone Pancho Lugo DO Primary Care Provider [phone] Fausto Merino DO Primary Care Provider + Encounter Details Date Type Department Care Team (Latest Contact Info) Description 11/08/2018 Scan HEALTH INFO [facility] Scanned, Documents Social [...] on filedocumented in this encounter Care Teams Condenser Tester Relationship Specialty Start Date End Date Pancho Lugo DO [address] [facility] [place] [address] PCP - General 02/18/11 08/23/19 Fausto Merino DO [address] [place] [address] PCP - General FAMILY PRACTICE 08/24/19 documented as of this encounter
--- OUTSIDE RECORDS SUMMARY | 2024-08-14 06:35 | XMS_ITS | Encounter Summary ---
Author Organization [facility] Address [address] [place] [address]. [place] [address] [place] [address] Care Team Providers Care Onion Farmer Name Role Phone Pancho Lugo DO Primary Care Provider [phone] Ted Mahmood MD Primary Care Provider Unavailable Encounter Details Date Type Department Care Team (Late st Contact Info) Description 04/13/2002 Abstract [facility] CONVERSION [address] [place] [address] Ted Mahmood MD Social History Tobacco Use [...] on filedocumented in this encounter Care Teams Onion Farmer Relationship Specialty Start Date End Date Pancho Lugo DO [address] [facility] [place] [address] PCP - General 02/18/11 08/23/19 Ted Mahmood MD PCP - General 02/12/11 documented as of this encounter
--- OUTSIDE RECORDS SUMMARY | 2024-08-14 06:35 | XMS_ITS | Encounter Summary ---
Author Organization [facility] Address [address] [place] [address]. [place] [address] [place] [address] Care Team Providers Care Laundry Aid Name Role Phone Pancho Lugo DO Primary Care Provider [phone] Fausto Merino DO Primary Care Provider + Encounter Details Date Type Department Care Team (Latest Contact Info) Description 01/14/2018 Scan HEALTH INFO [facility] Scanned, Documents Social [...] on filedocumented in this encounter Care Teams Laundry Aid Relationship Specialty Start Date End Date Pancho Lugo DO [address] [facility] [place] [address] PCP - General 02/18/11 08/23/19 Fausto Merino DO [address] [place] [address] PCP - General FAMILY PRACTICE 08/24/19 documented as of this encounter
--- OUTSIDE RECORDS SUMMARY | 2024-08-14 06:35 | XMS_ITS | Encounter Summary ---
Author Organization [facility] Address [address] [place] [address]. [place] [address] [place] [address] Care Team Providers Care Faucet Polisher Name Role Phone Pancho Lugo DO Primary Care Provider [phone] Ted Mahmood MD Primary Care Provider Unavailable Encounter Details Date Type Department Care Team (Late st Contact Info) Description 09/23/2002 Abstract [facility] CONVERSION [address] [place] [address] Ted Mahmood MD Social History Tobacco Use [...] on filedocumented in this encounter Care Teams Faucet Polisher Relationship Specialty Start Date End Date Pancho Lugo DO [address] [facility] [place] [address] PCP - General 02/18/11 08/23/19 Ted Mahmood MD PCP - General 02/12/11 documented as of this encounter
--- OUTSIDE RECORDS SUMMARY | 2024-08-14 06:35 | XMS_ITS | Encounter Summary ---
Author Organization [facility] Address [address] [place] [address]. [place], [place] [address] [place] [address] Care Team Providers Care Table Worker Packager Name Role Phone Pancho Lugo DO Primary Care Provider [phone] Fausto Merino DO Primary Care Provider + Reason for Visit * Reason Comments Lab (SCAN) Encounter Details Date Type Department Care Team (Latest Contact Info) Description 10/22/2018 Scan HEALTH INFO [facility] Scanned, Documents Lab [...] Diagnosis Comments OUTSIDE LAB (SCAN ORDER) Routine 10/22/2018 OUTSIDE LAB (SCAN ORDER) Routine 10/22/2018 documented in this encounter Results * OUTSIDE LAB (10/22/2018) 10/22/2018 us Documents Scanned SCANNING Edited Result - Final [facility] [address] [address] * OUTSIDE LAB (10/22/2018) 10/22/2018 us Documents Scanned SCANNING Edited Result - Final [facility] [address] [place] [address] documented in this encounter Visit Diagnoses Not on filedocumented in this encounter Care Teams Table Worker Packager Relationship Specialty Start Date End Date Pancho Lugo DO [address] [facility] [place] [address] PCP - General 02/18/11 08/23/19 Fausto Merino DO [address] [place] [address] PCP - General FAMILY PRACTICE 08/24/19 documented as of this encounter
--- OUTSIDE RECORDS SUMMARY | 2024-08-14 06:35 | XMS_ITS | Encounter Summary ---
Author Organization [facility] Address [address] [place] [address]. [place] [address] [place] [address] Care Team Providers Care Civil Laboratory Technician Name Role Phone Pancho Lugo DO Primary Care Provider [phone] Ted Mahmood MD Primary Care Provider Unavailable Encounter Details Date Type Department Care Team (Late st Contact Info) Description 06/06/2002 Abstract [facility] CONVERSION [address] [place] [address] Ted Mahmood MD Social History Tobacco Use [...] on filedocumented in this encounter Care Teams Civil Laboratory Technician Relationship Specialty Start Date End Date Pancho Lugo DO [address] [place] [address] PCP - General 02/18/11 08/23/19 Ted Mahmood MD PCP - General 02/12/11 documented as of this encounter
--- OUTSIDE RECORDS SUMMARY | 2024-08-14 06:35 | XMS_ITS | Encounter Summary ---
Author Organization [facility] Address [address] [place] [address]. [place], [place] [id number] [place] [id number] Care Team Providers Care Motor Transport Inspector Name Role Phone Pancho Lugo DO Primary Care Provider [phone] Fausto Merino DO Primary Care Provider + Reason for Visit * Reason Comments Lab (SCAN) Encounter Details Date Type Department Care Team (Latest Contact Info) Description 06/07/2018 Scan HEALTH INFO [facility] Scanned, Documents Lab [...] Diagnosis Comments OUTSIDE LAB (SCAN ORDER) Routine 06/07/2018 documented in this encounter Results * OUTSIDE LAB (06/07/2018) 06/07/2018 us Documents Scanned SCANNING Edited [facility] - [facility] documented in this encounter Visit Diagnoses Not on filedocumented in this encounter Care Teams Motor Transport Inspector Relationship Specialty Start Date End Date Pancho Lugo DO [address] [place] [address] [place] [address] PCP - General 02/18/11 08/23/19 Fausto Merino DO [address] [place] [address] PCP - General FAMILY PRACTICE 08/24/19 documented as of this encounter
--- OUTSIDE RECORDS SUMMARY | 2024-08-14 06:35 | XMS_ITS | Encounter Summary ---
Author Organization [facility] Address [address] [place] [address]. [place] [address] [place] [address] Care Team Providers Care Drawstring Knotter Name Role Phone Fausto Merino DO Primary Care Provider + Encounter Details Date Type Department Care Team (Latest Contact Info) Description 09/21/2019 Scan [facility] Scanned, Documents [...] on filedocumented in this encounter Care Teams Drawstring Knotter Relationship Specialty Start Date End Date Fausto Merino DO [address] [place] [address] PCP - General FAMILY PRACTICE 08/24/19 documented as of this encounter
--- OUTSIDE RECORDS SUMMARY | 2024-08-14 06:35 | XMS_ITS | Encounter Summary ---
Author Organization [facility] Address [address] [place] [address]. [place] [address] [place] [address] Care Team Providers Care Director Digital Analytics Name Role Phone Pancho Lugo DO Primary Care Provider [phone] Ted Mahmood MD Primary Care Provider Unavailable Encounter Details Date Type Department Care Team (Late st Contact Info) Description 08/01/2003 Abstract [facility] CONVERSION [address] [place] [address] Ted Mahmood MD Social History Tobacco Use [...] on filedocumented in this encounter Care Teams Director Digital Analytics Relationship Specialty Start Date End Date Pancho Lugo DO [address] [facility] [place] [address] PCP - General 02/18/11 08/23/19 Ted Mahmood MD PCP - General 02/12/11 documented as of this encounter
--- OUTSIDE RECORDS SUMMARY | 2024-08-14 06:35 | XMS_ITS | Encounter Summary ---
Author Organization [facility] Address [address] [place] [address]. [place] [address] [place] [address] Care Team Providers Care Jig Builder Name Role Phone Pancho Lugo DO Primary Care Provider [phone] Fausto Merino DO Primary Care Provider + Encounter Details Date Type Department Care Team (Latest Contact Info) Description 01/31/2019 Scan HEALTH INFO [facility] Scanned, Documents Social [...] on filedocumented in this encounter Care Teams Jig Builder Relationship Specialty Start Date End Date Pancho Lugo DO [address] [place] [address] PCP - General 02/18/11 08/23/19 Fausto Merino DO [address] [place] [address] PCP - General FAMILY PRACTICE 08/24/19 documented as of this encounter
--- OUTSIDE RECORDS SUMMARY | 2024-08-14 06:35 | XMS_ITS | Encounter Summary ---
Author Organization [facility] Address [address] [place] [address]. [place] [address] [place] [address] Care Team Providers Care Broke Handler Name Role Phone Pancho Lugo DO Primary Care Provider [phone] Ted Mahmood MD Primary Care Provider Unavailable Encounter Details Date Type Department Care Team (Late st Contact Info) Description 02/12/2011 Emergency [facility] [place] [address] Social History Tobacco Use Types Packs/Day Years Used Date Smoking Tobacco: Never Assessed Comments Unknown Sex and Gender Information Value Date Recorded Sex Assigned at Not on file Legal Sex Female 7:43 PM CDT Gender Identity Not on file Sexual Orientation Not on file documented as of this encounter Plan of Treatment Not on file documented as of this encounter Visit Diagnoses Diagnosis Closed fracture of metatarsal bone Closed fracture of metatarsal bone(s) documented in this encounter Care Teams Broke Handler Relationship Specialty Start Date End Date Pancho Lugo DO [address] [place] [address] [place] [address] PCP - General 02/18/11 08/23/19 Ted Mahmood MD PCP - General 02/12/11 documented as of this encounter
--- OUTSIDE RECORDS SUMMARY | 2024-08-14 06:36 | XMS_ITS | Encounter Summary ---
Author Organization [facility] Healthcare Address [address] [place] [address] Care Team Providers Care Assembly Leader Name Role Phone Po Doherty MD Primary Care Provider [phone] Encounter Details Date Type Department Care Team (Late st Contact Info) Description 12/06/2015 6:24 PM CDT - 12/08/2015 6:08 PM CDT Hospital Encounter [facility] Leanne Walters MD [address] [place] [address] Breakdown (mechanical) of other specified internal prosthetic devices, implants and grafts, initial encounter; Miscellaneous neurological devices associated with adverse incidents, not elsewhere classified; Unspecified place or not applicable; Other complications of procedures, not elsewhere classified, initial encounter; Other surgical procedures as the cause of abnormal reaction of the patient, or of later complication, without mention of misadventure at the time of the procedure; Headache; Nausea with vomiting; Chronic pain syndrome; Postlaminectomy syndrome, not elsewhere classified; Radiculopathy of lumbar region; Type 2 diabetes mellitus without complications (CMS/HCC); Essential (primary) hypertension; Pure hypercholesterolemia; Age-related osteoporosis without current pathological fracture; Osteoarthritis; Hospital as place of occurrence of external cause; Personal history of malignant neoplasm; 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 Social History Tobacco Use Types Packs/Day Years Used Date Smoking Tobacco: Never Alcohol Use Standard Drinks/Week Comments No 0 (1 standard drink = 0.6 oz pur e alcohol) Comments Unknown Sex and Gender Information Value Date Recorded Sex Assigned at Not on file Legal Sex Female 3:27 AM [employer] Gender Identity Not on file Sexual Orientation Not on file documented as of this encounter Last Filed Vital Signs Vital Sign Reading Time Taken Comments Blood Pressure 130/69 12/08/2015 3:20 PM CDT Pulse 60 12/08/2015 3:20 PM CDT Temperature - - Respiratory Rate - - Oxygen Saturation - - Inhaled Oxygen Concentration - - Weight 92.7 kg (204 lb 5.9 oz) 12/06/2015 6:18 P M CDT Height 165.1 cm (5' 5 ) 12/06/2015 6:18 PM CDT Body Mass Index 34.01 12/06/2015 6:18 PM CDT documented in this encounter H&P Notes * Provider, MD Gavin - 12/08/2015 6:08 PM CDT HISTORY AND PHYSICAL Patient: ENEDELIA AMADO Account: [id number] Room No: : 1935 Patient Type: [facility] Attend.: Roosevelt Tsang D.P.M. Admit Date: 05/20/2016 Dict.: Roosevelt Tsang D.P.M. Disch. Date: 05/20/2016 PODIATRIC HISTORY AND PHYSICAL CHIEF COMPLAINT Patient complains of painful hammertoes of her left foot. HISTORY OF PRESENT ILLNESS Patient states condition has been present for quite some time and progressively gotten worse. Patient has already tried larger shoes and open- toed shoes with very little relief of symptoms. At this time, she wishes for surgery for permanent correction of her deformity of the left foot. PAST MEDICAL HISTORY Patient is currently under the care of Dr. Felix for arthritis, cancer, lower back pain, hypothyroidism, hypertension, GERD, hyperlipidemia and anxiety, too. CURRENT MEDICATIONS 1. Atorvastatin 80 mg 1/2 tablet daily. 2. Furosemide 20 mg b.i.d. 3. Omeprazole 40 mg daily. 4. Metoprolol 25 mg b.i.d. 5. Levothyroxine 100 mcg daily. 6. Alprazolam 0.25 mg p.r.n. 7. Addy aspirin 81 mg daily. 8. Potassium chloride mEq, 1 tablets daily. 9. Fish oil. 10. Calcium. 11. Stool softener. ALLERGIES CODEINE, GABAPENTIN, COMPAZINE, PHENERGAN AND REGLAN. SOCIAL HISTORY Patient denies smoking and drinking. FAMILY HISTORY Patient states her sister had cancer but denies any immediate family history of diabetes, cardiopulmonary disease, liver disease, kidney disease, stroke or arthritis. PREVIOUS SURGERIES Have consisted of a previous foot surgery in which a Lapidus procedure was performed on the right foot along with several arthroplasties. It appears from x-ray the Lapidus procedure eventually evolved into a hallux varus of the right foot. Good union. It also appears that there may have been a Monica osteotomy of the 2nd metatarsal of the right foot. PODIATRIC PHYSICAL Integument: Warm and dry to touch, both feet. Turgor is supple, both feet. Well-healed scars present on the dorsal aspect of the right foot. No erythema, ulceration or sign of infection present both feet. Vascular: Dorsalis pedis, posterior tibial pulses positive 2/4 both feet. Capillary filling time less than 3 seconds all digits both feet. Edema negative both feet. Varicosities are negative both feet. Neurological: Reveals reflexes are within normal limits both feet. Sensorium is grossly intact, both feet. Musculoskeletal: Reveals a good range of motion in all of the foot and ankle joints, both feet. Dorsiflexors, plantar flexors, invertors and evertors positive 5/5 both feet. Bilaterally symmetrical muscle tone and mass noted. There are flexure contractures of all the lesser digits of the left foot 2nd through 4th digits. There are extensor contractures of the 2nd through 4th MPJs of the left foot. The right foot, there is a hallux varus condition with medial deviation of all the lesser digits of the right foot, however, the patient is asymptomatic for these deformities. X-RAYS AP lateral projection of both feet correlate with clinical findings for hammer digit syndrome, 2nd through 4th digits left foot and extensor contractures, 2nd through 4th digits left foot. 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 TREATMENT Patient is to undergo day surgery at [facility] under general anesthesia, which following procedures shall be performed: 1. Arthroplasty with Trilliant implant fixation 2nd through 4th digits, left foot. 2. Extensor tenotomy and capsulotomy, 2nd through 4th MPJs, left foot. Patient understands risks and complications involved with surgery and anesthesia and is willing to undergo these for permanent correction of the deformity. Patient understands that no guarantees to the result of the surgery however a good outcome is expected. Patient understands some of the risks involved include nerve damage, infection, dehiscent wound, over- correction or under-correction of the deformity, possible loss of toe, foot, limb and life. Electronically Authenticated by: Roosevelt Tsang DPM On 05/29/2016 12:06 PM CDT Roosevelt Ts[facility] D.P.M. [facility] TD: 05/19/2016 17:13 * Provider, MD Gavin - 12/08/2015 6:08 PM CDT HISTORY AND PHYSICAL Patient: ENEDELIA AMADO Account: [id number] Room No: 175-04 : 1935 Patient Type: SDS Attend.: Roosevelt Tsang D.P.M. Admit Date: 05/20/2016 Dict.: Roosevelt Tsang D.P.M. Disch. Date: 05/20/2016 PREOPERATIVE DIAGNOSES 1. Hammer digit syndrome 2nd through 4th digits, left foot. 2. Extensor contracture 2nd through 4th metatarsophalangeal joint, left foot. POSTOPERATIVE DIAGNOSES 1. Hammer digit syndrome 2nd through 4th digits, left foot. 2. Extensor contracture 2nd through 4th metatarsophalangeal joint, left foot. PROCEDURE PERFORMED 1. Arthroplasty 2nd through 4th digits, left foot with Trilliant hammertoe implants. 2. Extensor tenotomy and capsulotomy, 2nd through 4th MPJs, left foot. DESCRIPTION OF OPERATION Patient was brought to the Operating Room, placed on operating room table in supine position. General anesthesia was administered. A tourniquet was applied just above the level of the malleoli of the left ankle. A sterile prep was administered to the left foot. Sterile draping was concluded in the usual sterile manner. A sterile Esmarch bandage was applied tot the left foot and a Kidde cuff tourniquet inflated to 275 mmHg to maintain hemostasis. The Esmarch bandage was released and good hemostasis was noted to the left foot. ARTHROPLASTIES 2nd through 4th digits with Trilliant hammertoe implants, left foot. Three 3 cm longitudinal incisions were made over the dorsal aspect of the 2nd, 3rd, and 4th digits of the left foot. The incisions were deepened via sharp dissection through subcutaneous layers. All superficial vessels encountered were bovied as necessary. The deep fascia layers were likewise incised in a linear fashion, thereby exposing the capsule overlying the proximal interphalangeal joints of the 2nd, 3rd, and 4th digits of left foot. Utilizing sharp dissection with a #15 blade, 3 transverse capsulotomies were performed. Capsular structures were underscored and reflected, thereby exposing the heads of the proximal phalanx. Utilizing reamers, the heads of the proximal phalanx and the base of the middle phalanx were reamed with coning concave reamers. Medullary canal of the proximal phalanx of the 2nd, 3rd, and 4th digits left foot were also reamed. At this time, a lot of contracture was noted at the level of the 2nd through 4th MPJs left foot. Extensor tenotomy and capsulotomy, 2nd through 4th MPJs left foot incisions were extended 1 cm proximally. The incisions were deepened via sharp dissection through subcutaneous layers. All superficial vessels encountered were bovied as necessary. Transverse capsulotomies were performed including the superior capsule of the 2nd, 3rd, and 4th MPJs left foot. Utilizing a McGlamry elevator, flexor adhesions were removed. Good reduction of the contractures were noted. K-wires were drilled proximal to distal through the middle distal phalanxes. Trilliant hammertoe implants were then inserted into the exiting K-wires. The Trilliant implants were then inserted into the heads of the proximal phalanx. Utilizing C-arm guidance, K-wires were driven proximally through the proximal phalanx and into the metatarsals. Good placement of the K-wires was noted via C-arm. Exiting K-wires were then cut and Raghavendra balls placed in all the exiting K-wires. Sterile saline was utilized to flush the wound throughout. The capsular structures were coapted and maintained utilizing 3-0 Vicryl simple interrupted sutures. The skin was coapted and maintained utilizing 4- 0 nylon simple horizontal mattress sutures. 5 mL of 0.5% Marcaine and 5 mL of 2% Xylocaine plain were then instilled to bases of the 2nd through 4th digits of the left foot. Utilizing Betadine ointment, Adaptic, dry 4x4's, 3 inch Kary, and sterile dressing was applied to the left foot. The tourniquet was deflated at this time and local circulation was noted to return to all digits of the left foot. Patient tolerated surgery and anesthesia well, and was taken from the Operating Room in stable and satisfactory condition. Ashlyn Toussaint/steven TD: 05/20/2016 17:18 documented in this encounter Consult Notes * ProviderGavin MD - 12/06/2015 12:00 AM CDT CONSULTATION REPORT Patient: ENEDELIA AMADO Account: [id number] Room No: G607-01 : 1935 Patient Type: IP Attend.: Leanne Moran M.D. Admit Date: 12/06/2015 Consult: Leanne Moran M.D. Disch. Date: This is an 80-year-old female born on 1935. HISTORY: This is an 80-year-old female patient with a longstanding intrathecal pump. She has gotten less use from it recently with increasing pain, was seen at [facility] yesterday and underwent a catheter gram with reprogramming and with a catheter volume bolus to reinitiate therapy. The catheter yesterday was determined to be appropriately placed with adequate flow. She was discharged from [facility] without any difficulty. Her pump was reprogrammed to normal function with about 20 months of battery life left. The patient subsequently developed symptoms of withdrawal and presented to [facility] and was evaluated and ruled out for sepsis and we were contracted. [employer] interrogated the pump which was found to be running in safe mood suggesting the catastrophic failure of the battery. The patient was in severe pain, hypertensive, tachycardic and felt to be in significant distress requiring emergency evaluation. Discussion with the patient, she wished to have the pump replaced. Her prior imaging includes MRIs, CT scan, x-ray. MEDICATIONS AT THIS TIME: Metformin one tablet p.o. b.i.d., atorvastatin 80 mg half tablet once a day, furosemide 20 mg p.o. b.i.d., omeprazole 40 mg per day, levothyroxine 100 micrograms per day, alprazolam 0.25 mg daily, aspirin 81 mg once a day, potassium chloride 10 mEq extended relief, Giltner 3, calcium 600 daily, stool softener b.i.d. PRIOR MEDICAL HISTORY: Hypertension, high cholesterol, diabetes, osteoporosis, arthritis, cancer. SURGICAL HISTORY: Lumbar laminectomy surgery, bilateral knee replacement, two bladder and rectal tie-ups, gallbladder surgery, shoulder surgery, hysterectomy. FAMILY HISTORY: Hypertension, high cholesterol, emphysema, diabetes, arthritis, cancer, depression. SOCIAL HISTORY: She is . She is retired. She is a nonsmoker, no alcohol, no street drugs. ALLERGIES: Codeine, gabapentin, Compazine, Phenergan and Reglan. REVIEW OF SYSTEMS: Positive for sinusitis on occasion, some hearing loss and some teeth and gum problems. Musculoskeletal: Positive for joint pain and she is positive for back pain. She is negative for weight loss, positive for constipation. Her vitals are per chart at [facility]. PHYSICAL EXAMINATION: She is alert. She is oriented. She is in severe pain, writhing in pain due to malfunction. There is no evidence of infection over the pump. She is neurologically intact. DIAGNOSES 1. Chronic pain syndrome. 2. Postlaminectomy syndrome. 3. Lumbar radicular pain. 4. 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 Pump was determined to be in safe mode which is most likely a catastrophic battery failure. The patient should have an urgent replacement of her intrathecal pain pump. There is no need for catheterization. The risks and benefits of replacement of the pump and not replacement of the pump were discussed at length with the patient. The patient will be transferred to [facility] as direct admit to go to surgery as soon as possible for replacement of her intrathecal pump in order to minimize any risk to her general health status. Electronically Authenticated by: Leanne Moran MD On 12/06/2015 08:31 PM CDT Leanne Moran M.D. WB/estrella TD: 12/06/2015 19:37 documented in this encounter Miscellaneous Notes * Op Note - Provider, MD Gavin - 12/06/2015 12:00 AM CDT OPERATIVE REPORT Patient: ENEDELIA AMADO Account: [id number] Room No: G607-01 : 1935 Patient Type: IP Attend.: Leanne Moran M.D. Admit Date: 12/06/2015 Surg.: Leanne Moran M.D. Disch. Date: 12/08/2015 PREOPERATIVE DIAGNOSES 1. Intrathecal pump malfunction. 2. Chronic pain, other. 3. Failed back surgery syndrome. 4. Lumbar radiculopathy. OPERATION Removal of old intrathecal pump, placement of new intrathecal pump same pocket in left abdominal area. ANESTHESIA General. POSTOPERATIVE DIAGNOSES 1. Intrathecal pump malfunction. 2. Chronic pain, other. 3. Failed back surgery syndrome. 4. Lumbar radiculopathy. IV FLUIDS One liter of lactated Ringers. ESTIMATED BLOOD LOSS 50 mL COMPLICATIONS None. SPECIMEN Intrathecal pump old. Medications were removed, and pump was injected into the new pump. Old intrathecal pump sent to [facility] for analysis due to failure. OPERATIVE NOTE The patient was taken to the OR, placed under general anesthesia in the supine position and sterile prep and drape was done in the usual fashion. A plasma blade was used to incise through the skin without difficulty. The pump was identified without difficulty. The pump was dissected out. No damage was done to the catheter. The sutures were all removed. The pump was explanted without difficulty. Good spinal fluid flow was noted through the catheter which was not revised. The new pump had been prepped on the back field. 1 cc of old pump medication was used to rinse the new pump and withdrawn. Subsequently, the 8.5 mm of pump medication from the old pump was placed into the new intrathecal pump without difficulty. The intrathecal pump was then placed in the body connected to the single piece catheter connector without any difficulty ____ release. 4-0 Ethibond sutures had been placed in the pocket previously to secure the pump. The pump was placed in the pocket. 4-0 Ethibond sutures were secured. Subsequently, irrigation with vancomycin and saline without difficulty. Vancomycin powder 300 mg placed into the pocket. CLOSURE 3-0 Vicryl subcutaneous, 4-0 Monocryl cutaneous. The patient was awakened and taken to the recovery room in stable condition. She tolerated the procedure well. Electronically Authenticated by: Leanne Moran MD On 12/07/2015 04:59 PM CDT Ishmael Del Valle/bridger TD: 12/07/2015 07:57 documented in this encounter Plan of Treatment Not on file documented as of this encounter Procedures Procedure Name Priority Date/Time Associated Diagnosis Comments XR FOOT 2 VW Routine 05/20/2016 9:14 AM CDT DISCHARGE LABORATORY CUMULATIVE REPORT 05/20/2016 BLOOD GLUCOSE, POC Routine 12/08/2015 4: 20 PM CDT BLOOD GLUCOSE, POC Routine 12/08/2015 11 :25 AM CDT BLOOD GLUCOSE, POC Routine 12/08/2015 2: 07 AM CDT DISCHARGE LABORATORY CUMULATIVE REPORT 12/08/2015 BLOOD GLUCOSE, POC Routine 12/07/2015 7: 36 PM CDT SERUM ESTIMATED GLOMERULAR FILTRATION RATE Routine 12/07/2015 4:15 PM CDT PLASMA BASIC METABOLIC PANEL Routine 12/07/2015 4:15 PM CDT BLOOD CELL COUNT (CBC), MORPHOLOGIC EXAM Routine 12/07/2015 4:15 PM CDT BLOOD CELL MORPHOLOGIC EXAM Routine 12/07/2015 4:15 PM CDT BLOOD GLUCOSE, POC Routine 12/07/2015 1: 30 PM CDT BLOOD GLUCOSE, POC Routine 12/07/2015 10 :49 AM CDT BLOOD GLUCOSE, POC Routine 12/07/2015 2: 01 AM CDT BLOOD GLUCOSE, POC Routine 12/06/2015 11 :02 PM CDT BLOOD GLUCOSE, POC Routine 12/06/2015 9: 00 PM CDT documented in this encounter Results * XR Foot 2 VW (05/20/2016 9:14 AM CDT) Anatomical Region Laterality Modality N/A Radiographic Edel ging 05/20/2016 9:14 AM CDT Narrative 05/20/2016 6:58 PM CDT XR Foot 2 Views L ?[id number] ??Acc#: ??[id number] XR NOCHARGE FLURO LESS THAN 1HR ??Acc#: ??[id number] DATE OF EXAM: ??May 20 2016 CLINICAL HISTORY: 2nd-4th digit left toe hammertoe arthroplasty. RESULT: A single AP view of the left foot was obtained in surgery using C-arm fluoroscope camera. ??Orthopedic pins extend from beyond distal tips of the 2nd-4th toes proximally to the region of the mid metatarsal shafts. At level of PIP joints there is a threaded tubular structure extending from proximal phalanx head to middle phalanx base, through which the orthopedic pins extend. IMPRESSION: 1. STATUS POST PINNING OF 2ND-4TH DIGITS, DESCRIBED. Fluoroscopy time for procedure was 2 minutes 45 seconds. Interpreting Physician: ??DR RIGOBERTO ROMERO M.D. ??Read on: ??May 20 2016 11:57A Transcribed by: ??vam ??On: May 20 2016 ??2:03P Approved Electronically by: ??DR RIGOBERTO ROMERO M.D. ??on: ??May 20 2016 6:57P Attending: ??ROOSEVELT TSANG Requesting: ??DR ROOSEVELT TSANG Requesting Fax: ??[phone] Attending Fax: ??-- Attending ID: ??[id number] Requesting ID: ??[id number] Report To 1 ID: ??[id number] Report To 1 Name: ??ROOSEVELT TSANG Report To 1 FAX: ??-- NextGen Order #: Procedure Note Provider, MD Gavin - 12/16/2016 XR Foot 2 Views L [id number] Acc#: [id number] XR NOCHARGE FLURO LESS THAN 1HR Acc#: [id number] DATE OF EXAM: May 20 2016 CLINICAL HISTORY: 2nd-4th digit left toe hammertoe arthroplasty. RESULT: A single AP view of the left foot was obtained in surgery using C-armfluoroscope camera. Orthopedic pins extend from beyond distal tips of [id number] toes proximally to the region of the mid metatarsal shafts. Atlevel of PIP joints there is a threaded tubular structure extending fromproximal phalanx head to middle phalanx base, through which the orthopedicpins extend. IMPRESSION: 1. STATUS POST PINNING OF 2ND-4TH DIGITS, DESCRIBED. Fluoroscopy timefor procedure was 2 minutes 45 seconds. Interpreting Physician: DR RIGOBERTO ROMERO M.D. Read on: May 20 201611:57A Transcribed by: va On: May 20 2016 2:03P Approved Electronically by: DR RIGOBERTO ROMERO M.D. on: May 20 20166:57P Attending: ROOSEVELT TSANG Requesting: DR ROOSEVELT TSANG Requesting Attending Fax: -- Attending ID: [id number] Requesting ID: [id number] Report To 1 ID: [id number] Report To 1 Name: ROOSEVELT TSNAG Report To 1 FAX: -- NextGen Order #: Historical Provider MD MEDINA XR PROCEDURES Final R esult * DISCHARGE LABORATORY CUMULATIVE REPORT (05/20/2016) Narrative 05/20/2016 Ordered by an unspecified provider. Historical Provider LAB BLOOD ORDERABLES Faiza l Result * (ABNORMAL) Blood glucose, POC (12/08/2015 4:20 PM CDT) Glucose, POC, bld 114(H) 71 - 98 mg/dl HISTORICAL RESULTS Blood specimen (specimen) 12/08/2015 4:20 PM CDT Result [facility] Provider LAB BLOOD ORDERABLES Faiza l Result Performing Organization Address [facility] de Phone Number HISTORICAL RESULTS * (ABNORMAL) Blood glucose, POC (12/08/2015 11:25 AM CDT) Glucose, POC, bld 107(H) 71 - 98 mg/dl HISTORICAL RESULTS Blood specimen (specimen) 12/08/2015 11:25 AM CDT Result [facility] Provider LAB BLOOD ORDERABLES Faiza l Result Performing Organization Address [facility] de Phone Number HISTORICAL RESULTS * Blood glucose, POC (12/08/2015 2:07 AM CDT) Glucose, POC, bld 78 71 - 98 mg/dl HISTORICAL RESULTS Blood specimen (specimen) 12/08/2015 2:07 AM CDT Result [facility] Provider LAB BLOOD ORDERABLES Faiza l Result Performing Organization Address [facility] de Phone Number HISTORICAL RESULTS * DISCHARGE LABORATORY CUMULATIVE REPORT (12/08/2015) Narrative 12/08/2015 Ordered by an unspecified provider. Result [facility] Provider LAB BLOOD ORDERABLES Faiza l Result * Blood glucose, POC (12/07/2015 7:36 PM CDT) Glucose, POC, bld 88 71 - 98 mg/dl HISTORICAL RESULTS Blood specimen (specimen) 12/07/2015 7:36 PM CDT us Historical Provider LAB BLOOD ORDERABLES Faiza l Result HISTORICAL RESULTS * Plasma basic metabolic panel (12/07/2015 4:15 PM CDT) Sodium 142 135 - 145 mmol/L HISTORICAL RESULTS K, pl 3.6 3.5 - 5.1 mmol/L HISTORICAL RESULTS Chloride 103 97 - 110 mmol/L HISTORICAL RESULTS CO2 30 22 - 32 mmol/L HISTORICAL RESULTS A. gap 13 8 - 16 mmol/L HISTORICAL RESULTS Glucose 106 70 - 199 mg/dl HISTORICAL RESULTS Comment: Interpretive Data Note:The glucose is assumed non fasting Fastin-99 mg/dL Random: ??70-199 mg/dL Either a fasting glucose > 126 mg/dL or a random glucose > 200 mg/dL plus symptoms is diagnostic of diabetes when confirmed on another day. Fasting values > 100 mg/dL but < 125 mg/dL are diagnostic of impaired fasting glucose. Current interpretive data was last revised on 2014. BUN 8.5 8.0 - 25.0 mg/dl HISTORICAL RESULTS Creatinine 0.60 0.60 - 1.10 mg/dl HISTORICAL RESULTS Calcium 8.6 8.6 - 10.2 mg/dl HISTORICAL RESULTS BUN/creat ratio 14 10 - 20 HIST ORICAL RESULTS Plasma 12/07/2015 4:15 PM CDT Historical Provider LAB BLOOD ORDERABLES Faiza l Result HISTORICAL RESULTS * (ABNORMAL) Blood cell morphologic exam (12/07/2015 4:15 PM CDT) Neutrophils 79.6 44.0 - 80.0 % HISTORICAL RESULTS Immature granulocytes 0.1 0.0 - 1.0 % HISTORICAL RESULTS Lymphocytes 14.4 13.0 - 44.0 % HISTORICAL RESULTS Monos 4.9 2.0 - 11.0 % HISTORICAL RESULTS Eosinophils 0.5 0.0 - 6.0 % HISTORICAL RESULTS Basophils 0.5 0.0 - 3.0 % HISTORICAL RESULTS Neutrophils, abs 6.5 1.6 - 7.0 K/cumm HISTORICAL RESULTS Immature granulocyte, abs 0.0 0.0 - 0.2 K/cumm HISTORICAL RESULTS Lymphocytes, abs 1.2 0.5 - 4.3 K/cumm HISTORICAL RESULTS Monocytes, absolute 0.4 0.1 - 1.0 K/cumm HISTORICAL RESULTS Eosinophils, abs 0.0 0.0 - 0.6 K/cumm HISTORICAL RESULTS Basophils, abs 0.5(H) 0.0 - 0.3 K/cumm HISTORICAL RESULTS Blood specimen (specimen) 12/07/2015 4:15 PM CDT Result [facility] Historical Provider LAB BLOOD ORDERABLES Faiza jie Result Performing Organization Address [facility] de Phone Number HISTORICAL RESULTS * (ABNORMAL) Blood cell count (CBC), morphologic exam (12/07/2015 4:15 PM CDT) WBC 8.2 3.8 - 9.8 K/cumm HISTORICAL RESULTS RBC 4.02 3.90 - 5.00 M/cumm HISTORICAL RESULTS Hgb 11.0(L) 12.1 - 15.1 g/dl HISTORICAL RESULTS Hct 35.6(L) 36.1 - 44.3 % HISTORICAL RESULTS MCV 88.6 80.0 - 100.0 fl HISTORICAL RESULTS MCH 27.4 26.7 - 33.7 pg HISTORICAL RESULTS MCHC 30.9(L) 32.7 - 36.0 g/dl HISTORICAL RESULTS Rdw 14.3 11.5 - 14.6 % HISTORICAL RESULTS Platelets 160 140 - 440 K/cumm HISTORICAL RESULTS MPV 9.1 8.0 - 12.0 fl HISTORICAL RESULTS NRBC 0.0 0.0 - 0.0 % HISTORIC AL RESULTS NRBC, abs 0.00 0.00 - 0.00 K/cumm HISTORICAL RESULTS Blood specimen (specimen) 12/07/2015 4:15 PM CDT Result [facility] Historical Provider LAB BLOOD ORDERABLES Faiza l Result Performing Organization Address [facility] Co de Phone Number HISTORICAL RESULTS * Serum estimated glomerular filtration rate (12/07/2015 4:15 PM CDT) eGFR >60 ml/min/1.7 3 m2 HISTORICAL RESULTS Comment: Interpretation of Estimated GFR (eGFR): Normal ?>/= 60 mL/min/1.73m2 Possible Chronic Kidney Disease ??15 - 59 mL/min/1.73m2 Possible Kidney Failure ?< 15 ??mL/min/1.73m2 If -[place] multiply value by 1.16. ??Estimated glomerular filtration rate is determined by the CKD-EPI equation recommended by the National Kidney Foundation (KDIGO 2012 Clinical Practice Guideline for the Evaluation and Management of Chronic Kidney Disease. ??Kidney Intnl Suppl Aug 2012;3:1). ??The CKD-EPI equation should not be used in acute renal failure or acute kidney injury and is not valid in children. Serum 12/07/2015 4:15 PM CDT Result [facility] Historical Provider LAB BLOOD ORDERABLES Faiza l Result Performing Organization Address [facility] Phone Number HISTORICAL RESULTS * (ABNORMAL) Blood glucose, POC (12/07/2015 1:30 PM CDT) Glucose, POC, bld 110(H) 71 - 98 mg/dl HISTORICAL RESULTS Blood specimen (specimen) 12/07/2015 1:30 PM CDT Result [facility] Historical Provider LAB BLOOD ORDERABLES Faiza l Result Performing Organization Address [facility] de Phone Number HISTORICAL RESULTS * (ABNORMAL) Blood glucose, POC (12/07/2015 10:49 AM CDT) Glucose, POC, bld 126(H) 71 - 98 mg/dl HISTORICAL RESULTS Blood specimen (specimen) 12/07/2015 10:49 AM CDT Result [facility] Historical Provider LAB BLOOD ORDERABLES Faiza l Result Performing Organization Address [facility] de Phone Number HISTORICAL RESULTS * (ABNORMAL) Blood glucose, POC (12/07/2015 2:01 AM CDT) Glucose, POC, bld 102(H) 71 - 98 mg/dl HISTORICAL RESULTS Blood specimen (specimen) 12/07/2015 2:01 AM CDT Historical Provider LAB BLOOD ORDERABLES Faiza l Result Performing Organization Address [facility] Phone Number HISTORICAL RESULTS * (ABNORMAL) Blood glucose, POC (12/06/2015 11:02 PM CDT) Glucose, POC, bld 111(H) 71 - 98 mg/dl HISTORICAL RESULTS Blood specimen (specimen) 12/06/2015 11:02 PM CDT Result [facility] Historical Provider LAB BLOOD ORDERABLES Faiza l Result Performing Organization Address [facility] Phone Number HISTORICAL RESULTS * Blood glucose, POC (12/06/2015 9:00 PM CDT) Glucose, POC, bld 98 71 - 98 mg/dl HISTORICAL RESULTS Blood specimen (specimen) 12/06/2015 9:00 PM CDT Historical Provider LAB BLOOD ORDERABLES Faiza l Result Performing Organization Address [facility] Phone Number HISTORICAL RESULTS documented in this encounter Visit Diagnoses Diagnosis Breakdown (mechanical) of other specified internal prosthetic devices, implants and grafts, initial encounter Miscellaneous neurological devices associated with adverse incidents, not elsewhere classified Unspecified place or not applicable Other complications of procedures, not elsewhere classified, initial encounter Other surgical procedures as the cause of abnormal reaction of the patient, or of later complication, without mention of misadventure at the time of the procedure Headache Nausea with vomiting Chronic pain syndrome Postlaminectomy syndrome, not elsewhere classified Radiculopathy of lumbar region Type 2 diabetes mellitus without complications (CMS/HCC) (HCC) Essential (primary) hypertension Unspecified essential hypertension Pure hypercholesterolemia Age-related osteoporosis without current pathological fracture Osteoarthritis Osteoarthrosis, unspecified whether generalized or localized, unspecified site Hospital as place of occurrence of external cause Personal history of malignant neoplasm Other long-term (current) drug therapy documented in this encounter Care Teams Assembly Leader Relationship Specialty Start Date End Date Po Doherty MD [address] [facility] [address] [facility] [address] [place] [address] PCP - General 09/06/14 documented as of this encounter
--- OUTSIDE RECORDS SUMMARY | 2024-08-14 06:36 | XMS_ITS | Encounter Summary ---
Author Organization [facility] Address [address] [place] [address] Care Team Providers Care Cigar Wrapper Tender Automatic Name Role Phone Unavailable Primary Care Provider Unavailabl e Encounter Details Date Type Department Care Team (Late st Contact Info) Description 06/28/2014 9:45 PM OPTICAL MANAGER - 06/28/2014 11:59 PM OPTICAL MANAGER Hospital Encounter [facility] Sunny Yap MD [address] [place] [id number] Social History Tobacco Use Types Packs/Day Years Used Date Smoking Tobacco: Never Assessed Comments Unknown Sex and Gender Information Value Date Recorded Sex Assigned at Not on file Legal Sex Female 3:27 AM OPTICAL MANAGER Gender Identity Not on file Sexual Orientation Not on file documented as of this encounter Plan of Treatment Not on file documented as of this encounter Procedures Procedure Name Priority Date/Time Associated Diagnosis Comments SERUM COMPREHENSIVE METABOLIC PANEL Routine 06/28/2014 9:45 PM OPTICAL MANAGER BLOOD CELL COUNT (CBC), MORPHOLOGIC EXAM Routine 06/28/2014 9:45 PM OPTICAL MANAGER documented in this encounter Results * (ABNORMAL) Blood cell count (CBC), morphologic exam (06/28/2014 9:45 PM OPTICAL MANAGER) WBC 5.8 3.8 - 9.8 K/cumm HISTORICAL RESULTS RBC 3.36(L) 4.20 - 5.20 M/cumm HISTORICAL RESULTS Hgb 9.2(L) 12.0 - 15.0 g/dl HISTORICAL RESULTS Hct 31.3(L) 37.0 - 47.0 % HISTORICAL RESULTS MCV 93.2 82.0 - 96.0 fl HISTORICAL RESULTS MCH 27.4 27.0 - 32.0 pg HISTORICAL RESULTS MCHC 29.4 29.0 - 35.0 g/dl HISTORICAL RESULTS Platelets 217 150 - 450 K/cumm HISTORICAL RESULTS RDW 56.3(H) 36.4 - 46.3 fl HISTORICAL RESULTS Rdw 16.5(H) 11.5 - 14.5 % HISTORICAL RESULTS MPV 10.7 8.6 - 12.6 fl HISTORICAL RESULTS Neutrophils 56.4 42.0 - 85.0 % HISTORICAL RESULTS Neutrophils, abs 3.3 2.1 - 8.5 K/cumm HISTORICAL RESULTS Lymphocytes 28.2 16.0 - 52.0 % HISTORICAL RESULTS Lymphocytes, abs 1.6 0.8 - 5.2 K/cumm HISTORICAL RESULTS Monos 6.6 1.0 - 13.0 % HISTORICAL RESULTS Monocytes, absolute 0.4 0.0 - 1.3 K/cumm HISTORICAL RESULTS Eosinophils 8.1(H) 0.0 - 7.0 % HISTORICAL RESULTS Eosinophils, abs 0.5 0.0 - 0.7 K/cumm HISTORICAL RESULTS Basophils 0.5 0.0 - 4.0 % HISTORICAL RESULTS Basophils, abs 0.0 0.0 - 0.4 K/cumm HISTORICAL RESULTS Young granulocytes, % 0.2 0.0 - 1.0 % HISTORICAL RESULTS Young granulocyte 0.01 0.00 - 0.10 K/cumm HISTORICAL RESULTS NRBC 0.0 0.0 - 0.2 #/100 WBC HISTORICAL RESULTS NRBC, abs 0.00 0.00 - 0.01 K/cumm HISTORICAL RESULTS Blood specimen (specimen) 06/28/2014 9:45 PM OPTICAL MANAGER us Historical Provider LAB BLOOD ORDERABLES Faiza l Result HISTORICAL RESULTS * (ABNORMAL) Serum comprehensive metabolic panel (06/28/2014 9:45 PM OPTICAL MANAGER) BUN 6(L) 8 - 24 mg/dl HISTORICAL RESULTS Glucose 118 70 - 199 mg/dl HISTORICAL RESULTS Sodium 146(H) 135 - 145 mmol/L HISTORICAL RESULTS Potassium, sr 4.1 3.5 - 5.1 mmol/L HISTORICAL RESULTS Chloride 104 100 - 114 mmol/L HISTORICAL RESULTS CO2 36(H) 22 - 32 mmol/L HISTORICAL RESULTS Creatinine 1.17 0.60 - 1.30 mg/dl HISTORICAL RESULTS AST 18 7 - 40 Units/L HISTORICAL RESULTS ALT 13 1 - 45 Units/L HISTORICAL RESULTS Alk phos 102 30 - 110 Units/L HISTORICAL RESULTS Calcium 9.3 8.4 - 10.5 mg/dl HISTORICAL RESULTS Bilirubin 0.50 0.10 - 1.30 mg/dl HISTORICAL RESULTS Protein, sr 6.0 6.0 - 8.3 g/dl HISTORICAL RESULTS Alb 3.0(L) 3.2 - 4.8 g/dl HISTORICAL RESULTS Globulin 3.0 2.0 - 4.3 g/dl HISTORICAL RESULTS A. gap 10 8 - 16 mmol/L HISTORICAL RESULTS eGFR 45 90 - 200 ml/min/1.7 3 m2 HISTORICAL RESULTS Comment: If this individual is -[place], multiply result by 1.21 Repeated results of less than 60 is indicative of chronic kidney disease. MDRD formula has not been validated on individuals greater than 70 years old. Serum 06/28/2014 9:45 PM OPTICAL MANAGER us Historical Provider LAB BLOOD ORDERABLES Faiza ceron Result HISTORICAL RESULTS documented in this encounter Visit Diagnoses Not on filedocumented in this encounter
--- OUTSIDE RECORDS SUMMARY | 2024-08-14 06:36 | XMS_ITS | Encounter Summary ---
Author Organization [facility] Healthcare Address [address] [place] [address] Care Team Providers Care Railway Signal Electrician Name Role Phone Po Doherty MD Primary Care Provider [phone] Reason for Visit * Reason Comments Post-op Visit Back Pain Encounter Details Date Type Department Care Team (Late st Contact Info) Description 07/28/2022 10:21 AM PLANT GENERAL MANAGER - 07/28/2022 11:59 PM [facility] Hospital Encounter [facility] [address] [place] [address] [place] [phone] [phone] [place] [id number] [address] Radiculopathy, lumbosacral region (Primary Dx); End of battery life of intrathecal infusion pump Discharge Disposition: Discharge to home or self care Social History Tobacco Use Types Packs/Day Years Used Date Smoking Tobacco: Never Tobacco Cessation:Counseling Given: Not Answered Alcohol Use Standard Drinks/Week Comments No 0 (1 standard drink = 0.6 oz pur e alcohol) AUDIT-C Answer Date Recorded Frequency of Alcohol Consumption Not on file 07/14/2022 Q2: How many drinks containi ng alcohol do you have on a typical day when you are drinking? Patient does not drink Frequency of Binge Drinking Not on file 12/2021 Comments No Sex and Gender Information Value Date Recorded Sex Assigned at Not on file Legal Sex Female 3:27 AM PLANT GENERAL MANAGER Gender Identity Not on file Sexual Orientation Not on file documented as of this encounter Last Filed Vital Signs Vital Sign Reading Time Taken Comments Blood Pressure 151/82 07/28/2022 10:53 AM PLANT GENERAL MANAGER Pulse 66 07/28/2022 10:53 AM PLANT GENERAL MANAGER Temperature - - Respiratory Rate 16 07/28/2022 10:53 AM PLANT GENERAL MANAGER Oxygen Saturation - - Inhaled Oxygen Concentration - - Weight - - Height - - Body Mass Index - - documented in this encounter Medications at Time of Discharge aspirin 81 mg enteric coated tablet Take 81 mg by mouth daily atorvastatin (LIPITOR) 40 mg tablet Take 40 mg by mouth nightly 04/07/2022 calcium carbonate (CALCIUM 600 ORAL) Take 600 mg by mouth daily docusate sodium (COLACE) 100 mg capsule Take 100 mg by mouth daily as needed furosemide (LASIX) 20 mg tablet Take 20 mg by mouth 2 (two) times a day 40 mg AM 20 mg with dinner HYDROcodone-aceta minophen (NORCO) 7.5-325 mg per tablet Take 1 tablet by mouth 2 (two) times a day as needed 03/08/2022 levothyroxine (SYNTHROID) 100 mcg tablet Take 100 mcg by mouth daily 05/09/2022 metFORMIN (GLUCOPHAGE) 500 mg tablet Take 500 mg by mouth 2 (two) times a day 03/08/2022 metoprolol tartrate (LOPRESSOR) 25 mg immediate release tablet Take 25 mg by mouth 2 (two) times a day 04/07/2022 omeprazole (PriLOSEC) 40 mg capsule Take 40 mg by mouth daily 04/07/2022 potassium chloride ER 10 mEq CR capsule Take by mouth daily 04/07/2022 documented as of this encounter Discharge Disposition Disposition Code Departure Means Destination Discharge to home or self care documented in this encounter Progress Notes * Jodi Briceño NP - 07/28/2022 10:30 AM CST Images from the original note were not included. Patient Name: Bertha Amado : 1935 Today's Date: 07/28/2022 PCP: Po Doherty MD Referring: Christopher Yared Beuer* Chief Complaint Patient presents with Post-op Visit Back Pain HPI: Bertha Amado is a 86 y.o. female seen in consultation today for follow up. She presents with ongoing low back pain in the presence of post laminectomy syndrome. She had her pump replaced for battery end of life on 07/21/22. She reports no pain at this time. Does report some tenderness on left side from blister due to binder use. No known provocative factors. Alleviating factors include presenceof intrathecal pain pump. Patient denies any motor weakness or bowel/bladder issues. She is here for post op follow up. She is a patient of Dr Naveed Moran. Previous treatments: Back surgery, ITC pump implant and replacement, PT, steroid injections; ITC pain pump replacement 07/21/22 Prior medications utilized: Tylenol, Naproxen, Ibuprofen, Gabapentin, Hydrocodone Allergies Allergen Reactions Codeine Hives, Itching and Rash Gabapentin Swelling Lorazepam Unknown Per [facility] Metoclopramide Unknown Per [facility] Prochlorperazine Unknown Per [facility] Promethazine Unknown Per [facility] Past Medical History: Diagnosis Date Arthritis Cancer ([facility]) ([facility]) Breast, right Chronic back pain Diverticulitis of colon GERD (gastroesophageal reflux disease) Hyperlipidemia Hypertension Hypothyroidism Type 2 diabetes mellitus ([facility]) Patient Active Problem List Diagnosis Myocardial infarction ([facility]) ([facility]) Hypertension Hyperlipidemia Hypothyroidism Sleep apnea End of battery life of intrathecal infusion pump Radiculopathy, lumbosacral region Past Surgical History: Procedure Laterality Date APPENDECTOMY BACK SURGERY lumbar BREAST LUMPECTOMY Right CATARACT EXTRACTION Bilateral CHOLECYSTECTOMY FOOT SURGERY Bilateral multiple HYSTERECTOMY INTRATHECAL PUMP IMPLANTATION X 2 RECTAL PROLAPSE REPAIR SHOULDER SURGERY rotator cuff TOTAL KNEE ARTHROPLASTY Bilateral Social History Tobacco Use Smoking status: Never Smokeless tobacco: None Substance and Sexual Activity Drug use: Never Sexual activity: Defer Alcohol Use: Unknown Frequency of Alcohol Consumption: Not on file Average Number of Drinks: Patient does not drink Frequency of Binge Drinking: Not on file Family History Problem Relation Age of Onset Early Mother 7 years after childbirth No Known Problems Father HOME MEDICATIONS : aspirin 81 mg enteric coated tablet atorvastatin (LIPITOR) 40 mg tablet calcium carbonate (CALCIUM 600 ORAL) docusate sodium (COLACE) 100 mg capsule furosemide (LASIX) 20 mg tablet HYDROcodone-acetaminophen (NORCO) 7.5-325 mg per tablet levothyroxine (SYNTHROID) 100 mcg tablet metFORMIN (GLUCOPHAGE) 500 mg tablet metoprolol tartrate (LOPRESSOR) 25 mg immediate release tablet omeprazole (PriLOSEC) 40 mg capsule potassium chloride ER 10 mEq CR capsule Review of Systems Review of Systems Constitutional: Negative. HENT: Negative. Eyes: Negative. Respiratory: Negative. Cardiovascular: Negative. Gastrointestinal: Negative. Endocrine: Negative. Genitourinary: Negative. Musculoskeletal: Positive for back pain. Skin: Negative. Neurological: Negative. Psychiatric/Behavioral: Negative. Physical Exam Vitals: 07/28/22 1053 BP: 151/82 Pulse: 66 Resp: 16 Estimated body mass index is 35.76 kg/m?? as calculated from the following: Height as of 07/21/22: 157.5 cm (5' 2 ). Weight as of 07/21/22: 88.7 kg (195 lb 8 oz). Physical Exam Vitals and nursing note reviewed. Constitutional: Appearance: Normal appearance. HENT: Head: Normocephalic. Mouth/Throat: Mouth: Mucous membranes are moist. Eyes: Extraocular Movements: Extraocular movements intact. Pulmonary: Effort: Pulmonary effort is normal. Abdominal: General: Abdomen is flat. Palpations: Abdomen is soft. Musculoskeletal: Cervical back: Normal range of motion and neck supple. Lumbar back: Decreased range of motion. Skin: Neurological: General: No focal deficit present. Mental Status: She is alert and oriented to person, place, and time. Psychiatric: Mood and Affect: Mood normal. Behavior: Behavior normal. Assessment Encounter Diagnoses Name Primary? End of battery life of intrathecal infusion pump Radiculopathy, lumbosacral region Yes Review of Data: Clinical evaluation forms were reviewed including the PEG Scale Assessing Pain Intensity and Interference with score of: 3 Current Opioid Misuse Measure (COMM) reviewed with score of: not filled out today (> or equal to9 is higher risk of opioid misuse) [place] and [place] Prescription Drug Monitoring Reviewed and was consistent with office guidelines and policies. Most recent Urine Toxicology findings reviewed. Medical Decision Making / Plan: Pre-hypertension/Hypertension: The patient has been informed that they may have pre-hypertension orhypertension based on a blood pressure reading in the office today. I recommend that the patient call their primary care provider or a physician of their choice this week to arrange follow up for further evaluation of possible pre-hypertension or hypertension. I have also recommended that they try weight loss and exercise for management. Tobacco Screening: Bertha Amado was screened for tobacco use. Patient is a tobacco user. Patient was briefly counseled about the risks of tobacco use and the benefits of stopping. Patient has been advised to quit, and if that fails, to discuss pharmacological options with their family doctor. I saw Bertha Amado today for follow up. She presents with ongoing low back pain in the presence of post laminectomy syndrome. She had her pump replaced for battery end of life on 07/21/22. She reports no pain at this time. She has been instructed to use a white cotton tshirt between her skin and binder for another 3 weeks. At this time we will refer her back to Dr Moran for ongoing managementof her pain pump. We will see her back prn. Goals of Treatment: Treat underlying pathology, improve pain control, improve function and quality of life. Use of Medications: The pain management contract has been previously reviewed. Questions solicited and answered, and the patient endorses a clear understanding. The patient understands random toxicology screening and prescription drug monitoring will be used. Instructed to take the smallest effective dose of opioid medication. Risks/side-effects of opioid medications, if utilizing, have been reviewed including: drowsiness, tolerance, addiction, abuse, constipation, nausea, vomiting, itching, dizziness, allergic reaction, respiratory depression, lack of benefit, endocrine abnormalities, low testosterone, sexual dysfunction, or . If utilizing, risks/side-effects of NSAID???s and potential for gastrointestinal bleeding, gastritis/esophagitis, and increased cardiac risk reviewed. Risks/side-effects of Gabapentin, Lyrica, and other potential sedative medications, if utilizing, have been reviewed including drowsiness, sedation, dizziness, fluid retention, weight gain, respiratory depression, and . If utilizing medications, the patient has been instructed to take every medication appropriately, storing and disposing properly, never sharing medication. The patient has been instructed on opioid medications, including but not limited to: do not combine with other medications such as benzodiazepines, alcohol, muscle relaxers, or other depressant medications. Patient instructed to avoid driving and operating heavy machinery. UDS screens will be performed to assess for medication, metabolites, other medications, and illicit substances. Results may be discussed at the next visit. Life Manager: Life Manager done with Fluency Direct: variances and may occur. Dictations not proofread. Problem list pertinent to today???s visit reviewed, but entire patient problem list not reviewed today. This note is prepared by HASMUKH Samson. I electronically signed this note at 11:36 AM on 07/28/22. I, Jodi Briceño, have personally performed the services described in the documentation, and it accurately and completely records my words and actions though there are potential variances in recording and phonograph needle tip maker. Dictated not proofread. T GENERAL MANAGER documented in this encounter Plan of Treatment Not on file documented as of this encounter Visit Diagnoses Diagnosis Radiculopathy, lumbosacral region- Primary Thoracic or lumbosacral neuritis or radiculitis, unspecified End of battery life of intrathecal infusion pump documented in this encounter Care Teams Railway Signal Electrician Relationship Specialty Start Date End Date Po Doherty MD [address] [facility] [address] [facility] [address] [place] [address] PCP - General 09/06/14 documented as of this encounter
--- OUTSIDE RECORDS SUMMARY | 2024-08-14 06:36 | XMS_ITS | Continuity of Care Document ---
Author Organization [facility] Address [address] [place] [address] Phone Care Team Providers Care Field Staff Name Role Phone Remi Harper Unavailable Unavailable Advance Directives Directive Yes / No Effective Date File Name No Information Encounters Encounter Description Practice Location Reason(s) For Visit Diagnoses Date Provider Providers Copied on Encounter [facility], [address], [place], [place], [id number], [place] tel:[phone] [facility] No Information Oct- 7-200 0 [address]. [address] , [address], [place], [address], [place]. tel:[phone] Family History Family Member Type Diagnosis Age At Onset No Information Payers Payer name Insurance type Covered democrat ID Authoriza tion(s) [place] [id number] Social History Type Description Quantity Date Captured Comments Sex Female Smoking Status No Information Chief Complaint And Reason For Visit No Information Reason For Referral Reason For Referral No Information History Of Present Illness Encounter Date Complaint History Of Prese nt Illness No Information Functional Status Date Functional Assessmen t No Information Instructions Date Instruction Additional Infor mation No Information Assessments Type Assessment Date No Information Patient Care Teams Name Effective Dates (start - stop) Status Members No Information
--- OUTSIDE RECORDS SUMMARY | 2024-08-14 06:36 | XMS_ITS | Encounter Summary ---
Author Organization [facility] Healthcare Address [address] [place] [address] Care Team Providers Care Want Ad Clerk Name Role Phone Po Doherty MD Primary Care Provider [phone] Encounter Details Date Type Department Care Team (Late st Contact Info) Description 05/02/2022 Telephone [facility] [address] [place], [place] [id number] Edwin Mcnamara MD [address] [place] [address] [address] [place], [place] [id number] Social History Tobacco Use Types Packs/Day Years Used Date Smoking Tobacco: Never Alcohol Use Standard Drinks/Week Comments No 0 (1 standard drink = 0.6 oz pur e alcohol) Comments Unknown Sex and Gender Information Value Date Recorded Sex Assigned at Not on file Legal Sex Female 3:27 AM STOREKEEPER STEWARD Gender Identity Not on file Sexual Orientation Not on file documented as of this encounter Ordered Prescriptions Prescription Sig Dispense Quantity Refills Last Filled Start Date End Date chlorhexidine (HIBICLENS) 4 % external liquidIndications: Skin Disinfection Shower with daily beginning 5 days pre-op 236 mL 05/02/2022 2 mupirocin (BACTROBAN) 2 % ointmentIndication s:Pre-op testing Apply to bilateral nares twice daily, beginning 5 days pre-op 1 g 1 05/02/2022 2 documented in this encounter Miscellaneous Notes * Telephone Encounter - SurendraAna - 05/02/2022 9:54 AM CDT Please order [facility] [place] [address] documented in this encounter Plan of Treatment Not on file documented as of this encounter Visit Diagnoses Diagnosis Pre-op testing- Primary Unspecified pre-operative examination documented in this encounter Care Teams Want Ad Clerk Relationship Specialty Start Date End Date Po Doherty MD [address] [facility] [address] [facility] [address] [place] [phone] PCP - General 09/06/14 documented as of this encounter
--- OUTSIDE RECORDS SUMMARY | 2024-08-14 06:36 | XMS_ITS | Encounter Summary ---
Author Organization [facility] Healthcare Address [address] [place] [address] Care Team Providers Care Bull Gang Supervisor Name Role Phone Po Doherty MD Primary Care Provider [phone] Encounter Details Date Type Department Care Team (Late st Contact Info) Description 05/20/2016 6:07 AM CDT - 05/20/2016 11:35 AM CDT Hospital Encounter [facility] Anthony Rivas, DPM [address] [place] [address] Other hammer toe(s) (acquired), left foot; Contracture of joint of left foot; Osteoarthritis; Low back pain; Hypothyroidism; Essential (primary) hypertension; Gastro-esophageal reflux disease without esophagitis; Hyperlipidemia; Anxiety disorder; Type 2 diabetes mellitus without complications (CMS/HCC); 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; Allergy status to narcotic agent; Allergy status to other drugs, medicaments and biological substances status; Presence of other vascular implants and grafts; Primary malignant neoplasm ([facility]/HCC) Social History Tobacco Use Types Packs/Day Years Used Date Smoking Tobacco: Never Alcohol Use Standard Drinks/Week Comments No 0 (1 standard drink = 0.6 oz pur e alcohol) Comments Unknown Sex and Gender Information Value Date Recorded Sex Assigned at Not on file Legal Sex Female 3:27 AM DRAFTER ELECTRICAL Gender Identity Not on file Sexual Orientation Not on file documented as of this encounter Plan of Treatment Not on file documented as of this encounter Procedures Procedure Name Priority Date/Time Associated Diagnosis Comments BLOOD GLUCOSE, POC Routine 05/20/2016 9: 38 AM CDT BLOOD POTASSIUM Routine 05/20/2016 7:15 AM CDT BLOOD GLUCOSE, POC Routine 05/20/2016 7: 11 AM CDT documented in this encounter Results * Blood glucose, POC (05/20/2016 9:38 AM CDT) Glucose, POC, bld 84 71 - 98 mg/dl CDR HISTORICAL RESULTS Blood specimen (specimen) 05/20/2016 9:38 AM CDT Anthony iRvas DP LAB BLOOD ORDERABLES Final Result Performing Organization Address [facility] de Phone Number CDR HISTORICAL RESULTS * Blood potassium (05/20/2016 7:15 AM CDT) Potassium, bld 3.9 3.5 - 5.0 mmol/L CDR HISTORICAL RESULTS Blood specimen (specimen) 05/20/2016 7:15 AM CDT Anthony Rivas DP LAB BLOOD ORDERABLES Final Result Performing Organization Address [facility] de Phone Number CDR HISTORICAL RESULTS * Blood glucose, POC (05/20/2016 7:11 AM CDT) Glucose, POC, bld 77 71 - 98 mg/dl CDR HISTORICAL RESULTS Blood specimen (specimen) 05/20/2016 7:11 AM CDT Anthony Rivas DPSedrick LAB BLOOD ORDERABLES Final Result Performing Organization Address [facility] de Phone Number CDR HISTORICAL RESULTS documented in this encounter Visit Diagnoses Diagnosis Other hammer toe(s) (acquired), left foot Contracture of joint of left foot Osteoarthritis Osteoarthrosis, unspecified whether generalized or localized, unspecified site Low back pain Lumbago Hypothyroidism Unspecified hypothyroidism Essential (primary) hypertension Unspecified essential hypertension Gastro-esophageal reflux disease without esophagitis Hyperlipidemia Other and unspecified hyperlipidemia Anxiety disorder Anxiety state, unspecified Type 2 diabetes mellitus without complications (CMS/HCC) (HCC) group home current use of aspirin Allergy status to narcotic agent Allergy status to other drugs, medicaments and biological substances status Presence of other vascular implants and grafts Primary malignant neoplasm (HCC) documented in this encounter Care Teams Bull Gang Supervisor Relationship Specialty Start Date End Date Po Doherty MD [address] [facility] [address] [place] [address] PCP - General 09/06/14 documented as of this encounter
--- OUTSIDE RECORDS SUMMARY | 2024-08-14 06:36 | XMS_ITS | Encounter Summary ---
Author Organization [facility] Healthcare Address [address] [place] [address] Care Team Providers Care Road Driver Name Role Phone Po Doherty MD Primary Care Provider [phone] Encounter Details Date Type Department Care Team (Late st Contact Info) Description 08/18/2018 2:03 PM BIOLOGY PROFESSOR Hospital Encounter [facility] Nilesh Harden MD [address] [facility] [address] [place] [address] Localized edema Social History Tobacco Use Types Packs/Day Years Used Date Smoking Tobacco: Never Alcohol Use Standard Drinks/Week Comments No 0 (1 standard drink = 0.6 oz pur e alcohol) Comments Unknown Sex and Gender Information Value Date Recorded Sex Assigned at Not on file Legal Sex Female 3:27 AM BIOLOGY PROFESSOR Gender Identity Not on file Sexual Orientation Not on file documented as of this encounter Plan of Treatment Not on file documented as of this encounter Procedures Procedure Name Priority Date/Time Associated Diagnosis Comments US VEIN DUPLEX LOWER EXTREMITY BILATERAL COMPLETE Routine 08/18/2018 12:00 AM BIOLOGY PROFESSOR documented in this encounter Results * US Vein Duplex Lower Extremity Bilateral Complete (08/18/2018 12:00 AM BIOLOGY PROFESSOR) Anatomical Region Laterality Modality Vascular Bilateral Ultrasound 08/18/2018 Impressions 08/19/2018 11:47 AM BIOLOGY PROFESSOR ??Negative for deep vein thrombosis, bilateral lower extremities, with no significant superficial vein reflux bilaterally. NTS Job: [id number] Dictated By: Nilesh Herrera MD Dictated For: Nilesh ?MD Feliciano [EOD] Narrative 08/19/2018 11:47 AM BIOLOGY PROFESSOR DATE OF SERVICE: 08/18/2018 REASON FOR EXAMINATION: ??R60.0 COMMENTS ON THE RIGHT: ??Deep veins show normal flow and compressibility. ??No appreciable superficial vein reflux. COMMENTS ON THE LEFT: ??Deep veins show normal flow and compressibility. ??No appreciable superficial vein reflux. OVERALL Procedure Note Provider, MD Gavin - 12/25/2020 DATE OF SERVICE: 08/18/2018 REASON FOR EXAMINATION: R60.0 COMMENTS ON THE RIGHT: Deep veins show normal flow and compressibility.No appreciable superficial vein reflux. COMMENTS ON THE LEFT: Deep veins show normal flow and compressibility.No appreciable superficial vein reflux. OVERALL IMPRESSION: Negative for deep vein thrombosis, bilateral lowerextremities, with no significant superficial vein reflux bilaterally. NTS Job: [id number] Dictated By: Nilesh Herrera MD Dictated For: Nilesh Herrera MD [EOD] us Nilesh Herrera MD IMG US PROCEDURES Final Re sult documented in this encounter Visit Diagnoses Diagnosis Localized edema Edema documented in this encounter Care Teams Road Driver Relationship Specialty Start Date End Date Po Doherty MD [address] [facility] [address] [place] [address] PCP - General 09/06/14 documented as of this encounter
--- OUTSIDE RECORDS SUMMARY | 2024-08-14 06:36 | XMS_ITS | Referral Summary ---
Author Organization [facility] Office Building [address] [place] [id number] Care Team Providers Care Presser All Around Name Role Phone Po Doherty MD Primary Care Provider [phone] Allergies Active Allergy Reactions Criticality Noted Date Comments Codeine Hives,Itching,Rash Medium 12/27/2009 Gabapentin Swelling Medium Lorazepam Unknown Per [facility] Metoclopramide Unknown Per [facility] Prochlorperazine Unknown Per [facility] Promethazine Unknown Per [facility] Medications metFORMIN (GLUCOPHAGE) 500 mg tablet Take 500 mg by mouth 2 (two) times a day 03/08/2022 Active atorvastatin (LIPITOR) 40 mg tablet Take 40 mg by mouth nightly 04/07/2022 Active furosemide (LASIX) 20 mg tablet Take 20 mg by mouth 2 (two) times a day 40 mg AM 20 mg with dinner Active omeprazole (PriLOSEC) 40 mg capsule Take 40 mg by mouth daily 04/07/2022 Active metoprolol tartrate (LOPRESSOR) 25 mg immediate release tablet Take 25 mg by mouth 2 (two) times a day 04/07/2022 Active levothyroxine (SYNTHROID) 100 mcg tablet Take 100 mcg by mouth daily 05/09/2022 Active potassium chloride ER 10 mEq CR capsule Take by mouth daily 04/07/2022 Active HYDROcodone-edwin taminophen (NORCO) 7.5-325 mg per tablet Take 1 tablet by mouth 2 (two) times a day as needed 03/08/2022 Active docusate sodium (COLACE) 100 mg capsule Take 100 mg by mouth daily as needed Active aspirin 81 mg enteric coated tablet Take 81 mg by mouth daily Active calcium carbonate (CALCIUM 600 ORAL) Take 600 mg by mouth daily Active Active Problems Problem Noted Date Diagnosed Date End of battery life of intrathecal infusion pump 05/12/2022 Radiculopathy, lumbosacral region 05/12/2022 Myocardial infarction 09/06/2014 Overview (11/15/2016): Myocardial infarction Hypertension 09/06/2014 Overview (11/15/2016): Hypertension Hyperlipidemia 09/06/2014 Overview (11/15/2016): Hyperlipidemia Hypothyroidism 09/06/2014 Overview (11/15/2016): Hypothyroidism Sleep apnea 09/06/2014 Overview (11/15/2016): Sleep apnea Social History Tobacco Use Types Packs/Day Years [...] on file Legal Sex Female 3:27 AM FIBER ANALYST Gender Identity Not on file Sexual Orientation Not on file Last Filed Vital Signs Vital Sign Reading Time Taken Comments Blood Pressure 151/82 07/28/2022 10:53 AM FIBER ANALYST Pulse 66 07/28/2022 10:53 AM FIBER ANALYST Temperature 36.7 ??C (98.1 ??F) 07/21/2022 8:52 AM CS T Respiratory Rate 16 07/28/2022 10:53 AM FIBER ANALYST Oxygen Saturation 96% 07/21/2022 9:20 AM FIBER ANALYST Inhaled Oxygen Concentration - - Weight 88.7 kg (195 lb 8 oz) 07/21/2022 6:37 AM FIBER ANALYST Height 157.5 cm (5' 2 ) 07/21/2022 6:37 AM FIBER ANALYST Body Mass Index 35.76 07/21/2022 6:37 AM FIBER ANALYST Plan of Treatment Not on file Medical Devices Implanted Type Area Tribal Judge Device Identifier Shelf Expiration Date Model / Serial / Lot [employer] Tyrx 3.35x3in Large Envelope Absorbable Polyarylate Minocycline [id number] - [id number] Implanted:Qty: 1 on 07/21/2022 by Edwin Mcnamara MD at [facility] [employer] [id number] / / [id number] Med[employer] Inc Synchromed Ii .78in [place] Filter Mesh Pouch Programmable 8637-20 - [id number] - [id number] Implanted:Qty: 1 on 07/21/2022 by Edwin Mcnamara MD at [facility] Right: Abdomen [employer] Inc 12/22/2023 8637-20 / [id number] / [employer] Inc Sutureless Connector Revision Catheter Kit Intrathecal Pump 8578 - [id number] Implanted:Qty: 1 on 07/21/2022 by Edwin Mcnamara MD at [facility] Right: Abdomen [employer] Inc 04/10/2024 8578 / / [id number] Insurance MEDICARE RAILROAD Care Teams Presser All Around Relationship Specialty Start Date End Date Po Doherty MD [address] [facility] [address] [place] [address] PCP - General 09/06/14
--- OUTSIDE RECORDS SUMMARY | 2024-08-14 06:36 | XMS_ITS | Clinical Summary ---
Author Organization [facility] Office Building [address] [place] [address] Care Team Providers Care Tongue Carrier Name Role Phone Po Doherty MD Primary Care Provider [phone] Allergies Active Allergy Reactions Criticality Noted Date Comments Codeine Hives,Itching,Rash Medium 12/27/2009 Gabapentin Swelling Medium Lorazepam Unknown Per [facility] Metoclopramide Unknown Per [facility] Prochlorperazine Unknown Per [facility] Promethazine Unknown Per [facility] Medications metFORMIN (GLUCOPHAGE) 500 mg tablet Take [...] Sleep apnea 09/06/2014 Overview (11/15/2016): Sleep apnea Surgical History Surgery Date Site/Laterality Comments CATARACT EXTRACTION Bilateral BREAST LUMPECTOMY Right BACK SURGERY lumbar TOTAL KNEE ARTHROPLASTY Bilateral FOOT SURGERY Bilateral multiple HYSTERECTOMY CHOLECYSTECTOMY APPENDECTOMY SHOULDER SURGERY rotator cuff RECTAL PROLAPSE REPAIR INTRATHECAL PUMP IMPLANTATION X 2 Medical History Medical History Date Comments Hyperlipidemia Hypertension GERD (gastroesophageal reflux disease) Diverticulitis of colon Type 2 diabetes mellitus (HCC) Hypothyroidism Arthritis Cancer (CMS/HCC) (HCC) Breast, r ight Chronic back pain Family History Medical History Relation Name Comments No Known Problems Father Early Mother [address] childbirth Relation Name Status Comments Father Mother Social History Tobacco Use Types Packs/Day [...] on file Legal Sex Female 3:27 AM TEST RIDER Gender Identity Not on file Sexual Orientation Not on file Obstetrics History Last Filed Vital Signs Vital Sign Reading Time Taken Comments Blood Pressure 151/82 07/28/2022 10:53 AM TEST RIDER Pulse 66 07/28/2022 10:53 AM TEST RIDER Temperature 36.7 ??C (98.1 ??F) 07/21/2022 8:52 AM CS T Respiratory Rate 16 07/28/2022 10:53 AM TEST RIDER Oxygen Saturation 96% 07/21/2022 9:20 AM TEST RIDER Inhaled Oxygen Concentration - - Weight 88.7 kg (195 lb 8 oz) 07/21/2022 6:37 AM TEST RIDER Height 157.5 cm (5' 2 ) 07/21/2022 6:37 AM TEST RIDER Body Mass Index 35.76 07/21/2022 6:37 AM TEST RIDER Plan of Treatment Health Maintenance Due Date Last Done Comments Depression Screening 1934 DTaP/Tdap/Td Vaccine (1 - Tdap) 1945 Hepatitis B Screening 1952 Zoster Vaccine (1 of 2) 1984 Well Visit 65+ 11/02/1999 Pneumococcal vaccine 65+ (2 of 2 - PCV) 06/15/2013 06/15/2012 Fall Risk Assessment 07/21/2023 07/21/2022 Influenza Vaccine (#1) 2024 9, 07/06/2018, 05/14/2017, Additional history exists Medical Devices Implanted Type Area Motion Picture Projectionist Device Identifier Shelf Expiration Date Model / Serial / Lot [employer] Tyrx 3.35x3in Large Envelope Absorbable Polyarylate Minocycline [id number] - [id number] Implanted:Qty: 1 on 07/21/2022 by Edwin Mcnamara MD at [facility] [employer] [id number] / / [id number] [employer] Synchromed Ii .78in [place] Filter Mesh Pouch Programmable 8637-20 - [id number] - [id number] Implanted:Qty: 1 on 07/21/2022 by Edwin Mcnamara MD at [facility] Right: Abdomen [employer] Inc 12/22/2023 8637-20 / [id number] / [employer] Sutureless Connector Revision Catheter Kit Intrathecal Pump 8578 - [id number] Implanted:Qty: 1 on 07/21/2022 by Edwin Mcnamara MD at [facility] Right: Abdomen [employer] 04/10/2024 8578 / / [id number] Insurance MEDICARE RAILROAD Care Teams Tongue Carrier Relationship Specialty Start Date End Date Po Doherty MD [address] [facility] [address] [place], [place] [phone] PCP - General 09/06/14
--- OUTSIDE RECORDS SUMMARY | 2024-08-14 06:36 | XMS_ITS | Encounter Summary ---
Author Organization [facility] Healthcare Address [address] [place] [address] Care Team Providers Care Software Applications Architect Name Role Phone Po Doherty MD Primary Care Provider [phone] Reason for Visit * Auth/Cert Specialty Diagnoses / Procedures Referred By Contac t Referred To Contact Diagnoses LOW BACK PAIN Procedures WI INSERT/ REPLACE INFUSN PUMP,PROGRAMMABLE INTRATHECAL PAIN PUMP REPLACEMENT WITH PLASMA BLADE/ [place] [id number] [address] Phone: tel: fax: Referral ID Status Reason Start Date Expiration Date Visits Re quested Visits Authorized [id number] 05/02/2022 1 1 Encounter Details Date Type Department Care Team (Late st Contact Info) Description 07/21/2022 7:26 AM MANAGER SHOP Anesthesia Event [facility] Operating Room [address] [place] [address] [place] [address] [facility] [place] [address] Terry Mendoza MD [address] [place] [address] Anesthesia Record Procedure Summary Procedure Name Responsible Anesthesiologist Anesthesia Start Time Anesthesia Stop Time INTRATHECAL PAIN PUMP REPLACEMENT AND CATHETER REVISION WITH PLASMA BLADE (Abdomen) Osbaldo Huang MD 07/21/22 0726 07/21/22 0855 Events Date Time Event Comment 07/21/2022 0646 0726 In Room 0726 An Start 0726 An Start Data 0731 Start Supplemental O2 0733 An Induction The patient was reevaluated immediately before moderate or deep sedation use and before anesthesia induction. 0736 Anesthesia Ready 0746 Proc Start 0748 Incision Start 0842 Proc Fin 0848 an stop data 0850 Out of Room 0854 Handoff to RN I completed my handoff to the receiving nurse during which we: 1. Patient identified 2. Responsible provider identified 3. Pertinent medical history reviewed 4. Procedure type and surgical course discussed 5. Intraoperative anesthetic management and any significant issues discussed 6. Expectations and concerns for postop period discussed 7. Questions solicited from receiving nurse 8. Patient disposition at the time of handoff: No value filed. 0855 An Stop Meds Name Total propofol 70 mg propofol 405.36 mg lidocaine (CARDIAC) syringe 2 % 80 mg ceFAZolin (ANCEF) 1 gram/10 mL in steril e water (premix) 2,000 mg 2,000 mg phenylephrine 350 mcg glycopyrrolate 0.2 mg NS 0.9% 650 mL * Agents Name O2 N2O Air * Blood No blood administrations on file. Lines, Drains, and Airways Type Details Placement Removal RETIRED Surgical Site 07/21/22; 0657; Abdomen; Dermabond, 4x4, tegaderm,ab binder; 07/12/24 (Retired LDA, Removed/Completed by [facility] with LDA Utility); 1213 (Retired LDA, Removed/Completed by [facility] with LDA Utility) 07/21/22 0657 by Abdirahman Russell RN 07/12/24 1213 by Discharge Provider, Automatic Peripheral IV Placement Date: 07/21/22; Placement Time: 07; Catheter Size: 22 G; Orientation: Anterior, Distal, Left; Location: Forearm; Site Prep: Chlorhexidine; Technique: Anatomical landmarks; Inserted by: reynold rockwell; Insertion Attempts: 2; Patient Tolerance: Tolerated well; Removal Date: 07/21/22; Removal Time: 1006; Removal Reason: Per protocol (tip intact) 07/21/22 0720 by Karina Fritz, RN 07/21/22 1006 by Anastasiya Bean RN documented in this encounter Social History Tobacco Use Types Packs/Day Years Used Date Smoking Tobacco: Never Alcohol Use Standard Drinks/Week Comments No 0 (1 standard drink = 0.6 oz pur e alcohol) AUDIT-C Answer Date Recorded Frequency of Alcohol Consumption Not on file 07/14/2022 Q2: How many drinks containi ng alcohol do you have on a typical day when you are drinking? Patient does not drink 2 Frequency of Binge Drinking Not on file 12/2021 Comments No Sex and Gender Information Value Date Recorded Sex Assigned at Not on file Legal Sex Female 3:27 AM MANAGER SHOP Gender Identity Not on file Sexual Orientation Not on file documented as of this encounter OR Notes * Anesthesia Postprocedure Evaluation - Brad Tejada MD - 07/21/2022 9:25 AM CST Patient: Bertha Amado Procedure Summary Date: 07/21/22 Room / Location: OPERATING ROOM 10 / OPERATING ROOM Anesthesia Start: 725 Anesthesia Stop: 854 Procedure: INTRATHECAL PAIN PUMP REPLACEMENT AND CATHETER REVISION WITH PLASMA BLADE (Abdomen) Diagnosis: (LOW BACK PAIN) Providers: Edwin Mcnamara MD Responsible Provider: Osbaldo Huang MD Anesthesia Type: MAC ASA Status: 3 Anesthesia Type: MAC Last vitals BP (!) 178/76 Pulse 65 Temp 36.7 ??C (98.1 ??F) (Temporal) Resp 12 SpO2 96% Anesthesia Post Evaluation Patient location during evaluation: PACU Patient participation: complete - patient participated Level of consciousness: fully awake Pain management: adequate Airway patency: adequate Cardiovascular status: acceptable Respiratory status: acceptable Hydration status: acceptable Pt is: normothermic Nausea/Vomiting status: none No notable events documented. GER SHOP * Anesthesia Preprocedure Evaluation - Terry Mendoza MD - 07/14/2022 10:37 AM CST Images from the original note were not included. Anesthesia Evaluation Bertha Amado is a 86 y.o. female Procedure(s): INTRATHECAL PAIN PUMP REPLACEMENT WITH PLASMA BLADE/ 60 MIN * No Diagnosis Codes entered * HISTORY Past Medical History Information obtained from: patient and chart. Neurological + Neuromuscular disease - lumbar spinal cord injury. Cardiovascular + Hypertension + Hyperlipidemia + PA (denies) Number of PA's: 1. Date of last PA: 05/2014. Respiratory + Sleep apnea (JENNIFER) Prescribed device: PAP non-compliant. Pertinent negatives: non-smoker Hepatic / Heme Hepatic/Heme system: negative Gastrointestinal + GERD - on daily therapy. Asymptomatic. Renal / Renal/ system: negative Musculoskeletal/Pain + Chronic pain (s/p ITC pump implant) - back pain. + Chronic opioid use + Osteoarthritis Endocrine / Other + Diabetes mellitus - Diabetes type 2. Outpatient insulin use: none. + Thyroid disease - hypothyroidism + Obesity (BMI >30) + Cancer history- s/p radiation. Cancer type: breast. Functional Capacity Functional capacity: <4 METs and ambulates with assistance only Day of Surgery assessments + Possibility of assessed - ruled out by patient's provided history. Review of Systems + SOB + chronic pain (s/p ITC pump implant) + hard of hearing + vision loss (glasses) + chipped/loose teeth Pertinent negatives: chest pain Patient Active Problem List Diagnosis ??? Myocardial infarction (CMS/HCC) (HCC) ??? Hypertension ??? Hyperlipidemia ??? Hypothyroidism ??? Sleep apnea ??? End of battery life of intrathecal infusion pump ??? Radiculopathy, lumbosacral region Past Medical History: Diagnosis Date ??? Arthritis ??? Cancer (CMS/HCC) (HCC) Breast, right ??? Chronic back pain ??? Diverticulitis of colon ??? GERD (gastroesophageal reflux disease) ??? Hyperlipidemia ??? Hypertension ??? Hypothyroidism ??? Type 2 diabetes mellitus (HCC) Past Surgical History: Procedure Laterality Date ??? APPENDECTOMY ??? BACK SURGERY lumbar ??? BREAST LUMPECTOMY Right ??? CATARACT EXTRACTION Bilateral ??? CHOLECYSTECTOMY ??? FOOT SURGERY Bilateral multiple ??? HYSTERECTOMY ??? INTRATHECAL PUMP IMPLANTATION X 2 ??? RECTAL PROLAPSE REPAIR ??? SHOULDER SURGERY rotator cuff ??? TOTAL KNEE ARTHROPLASTY Bilateral OB History No obstetric history on file. Allergies Allergen Reactions ??? Codeine Hives, Itching and Rash ??? Gabapentin Swelling ??? Lorazepam Unknown ??? Metoclopramide Unknown ??? Prochlorperazine Unknown ??? Promethazine Unknown Med List Status: Nurse Complete Set By: Linette Sanford RN at 07/14/2022 10:14 AM Taking? Last Dose Start Date End Date Provider aspirin 81 mg enteric coated tablet -- -- -- Gavin Mederos MD atorvastatin (LIPITOR) 40 mg tablet -- 04/07/22 -- Gavin Mederos MD calcium carbonate (CALCIUM 600 ORAL) -- -- -- Gavin Mederos MD chlorhexidine (HIBICLENS) 4 % external liquid -- 05/02/22 -- Edwin Mcnamara MD Shower with daily beginning 5 days pre-op docusate sodium (COLACE) 100 mg capsule -- -- -- Gavin Mederos MD furosemide (LASIX) 20 mg tablet -- -- -- Gavin Mederos MD HYDROcodone-acetaminophen (NORCO) 7.5-325 mg per tablet -- 03/08/22 -- Gavin Mederos MD levothyroxine (SYNTHROID) 100 mcg tablet -- 05/09/22 -- Gavin Mederos MD metFORMIN (GLUCOPHAGE) 500 mg tablet -- 03/08/22 -- Gavin Mederos MD metoprolol tartrate (LOPRESSOR) 25 mg immediate release tablet -- 04/07/22 -- Gavin Mederos MD mupirocin (BACTROBAN) 2 % ointment -- 05/02/22 -- Edwin Mcnamara MD Apply to bilateral nares twice daily, beginning 5 days pre-op omeprazole (PriLOSEC) 40 mg capsule -- 04/07/22 -- Gavin Mederos MD potassium chloride ER 10 mEq CR capsule -- 04/07/22 -- Gavin Mederos MD Current Outpatient Medications: ??? aspirin 81 mg enteric coated tablet ??? atorvastatin (LIPITOR) 40 mg tablet ??? calcium carbonate (CALCIUM 600 ORAL) ??? chlorhexidine (HIBICLENS) 4 % external liquid ??? docusate sodium (COLACE) 100 mg capsule ??? furosemide (LASIX) 20 mg tablet ??? HYDROcodone-acetaminophen (NORCO) 7.5-325 mg per tablet ??? levothyroxine (SYNTHROID) 100 mcg tablet ??? metFORMIN (GLUCOPHAGE) 500 mg tablet ??? metoprolol tartrate (LOPRESSOR) 25 mg immediate release tablet ??? mupirocin (BACTROBAN) 2 % ointment ??? omeprazole (PriLOSEC) 40 mg capsule ??? potassium chloride ER 10 mEq CR capsule Social History Tobacco Use Smoking Status Never Smokeless Tobacco Not on file Alcohol Use: Unknown ??? Frequency of Alcohol Consumption: Not on file ??? Average Number of Drinks: Patient does not drink ??? Frequency of Binge Drinking: Not on file Substance and Sexual Activity Drug Use Never Family History Problem Relation Age of Onset ??? Early Mother 7 years after childbirth ??? No Known Problems Father PAT Physical Exam Airway Exam: Mallampati: II Cervical ROM: FROM Cardiovascular Exam: Rate: regular Rhythm: regular Negative for peripheral edema Pulmonary Exam: LCTA, bilat EENT Exam: trachea midline Dental Exam: Chipped, missing and poor dentition Skin Exam: Skin is warm. Current state: Patient's current state is cooperative. Vitals: 07/14/22 1030 BP: 151/74 Pulse: 57 Resp: 18 Temp: 37.3 ??C (99.1 ??F) PT: No results found for requested labs within last 720 hours. INR: No results found for requested labs within last 720 hours. APTT: No results found for requested labs within last 720 hours. Hgb A1C: No results found for requested labs within last 720 hours. CBC RBC: No results found for requested labs within last 720 hours. RDW: No results found for requested labs within last 720 hours. MCHC: No results found for requested labs within last 720 hours. MCH: No results found for requested labs within last 720 hours. MCV: No results found for requested labs within last 720 hours. Hct: No results found for requested labs within last 720 hours. Hgb: No results found for requested labs within last 720 hours. WBC: No results found for requested labs within last 720 hours. MPV: No results found for requested labs within last 720 hours. Platelets: No results found for requested labs within last 720 hours. RDW CV: No results found for requested labs within last 720 hours. RDW Sd: No results found for requested labs within last 720 hours. BMP Glucose: No results found for requested labs within last 720 hours. Calcium: No results found for requested labs within last 720 hours. Sodium: No results found for requested labs within last 720 hours. Potassium: No results found for requested labs within last 720 hours. CO2: No results found for requested labs within last 720 hours. Chloride: No results found for requested labs within last 720 hours. BUN: No results found for requested labs within last 720 hours. Creatinine: No results found for requested labs within last 720 hours. STOP-Bang Total Score: 4 DOS Physical Exam Medical history, medications, and allergies reviewed. Attestation: I endorse the findings of the anesthesia pre-evaluation assessment dated: 07/21/2022. Airway Exam: Mallampati: II Cervical ROM: FROM TM distance: >4 Jaw ROM: full Cardiovascular Exam: Rate: regular Rhythm: regular Pulmonary Exam: LCTA, bilat EENT Exam: trachea midline Dental Exam: Chipped, missing and poor dentition Current state: Patient's current state is cooperative. Anesthesia Plan ASA 3 Planned anesthesia: MAC Induction: Induction: intravenous. Postoperative Plan: Postoperative administration opioids intended. No postoperative mechanical ventilation intended. Patient's planned disposition post procedure is Outpatient. No trial extubation planned. Informed Consent: Discussed plan with attending and ORDER SELECTOR. Anesthesia plan and risks discussed with patient. Consent and Attending signature: I and/or my designee have discussed the anesthesia plan, benefits, possible alternatives, parental presence at time of induction (if indicated), and clinically relevant risks that may include dental injury, unintentional awareness, and/or other complications. The patient and/or parent/legal guardian understand, and agree to proceed. All questions answered. GER SHOP GER SHOP GER SHOP documented in this encounter Plan of Treatment Not on file documented as of this encounter Visit Diagnoses Not on filedocumented in this encounter Administered Medications Inactive Administered Medications - up to 3 most recent administrations Medication Order MAR Action Action Date Dose Rate Site ceFAZolin (ANCEF) 1 gram/10 mL in sterile water (premix) 2,000 mg 2,000 mg, intravenous, at 400 mL/hr, Administer over 3 Minutes, Once, On 07/21/22 at 0800, For 1 dose, Pre-Op, Indications: Prophylaxis, SurgicalIndications:Prophylaxis, Surgical Given 07/21/2022 7:40 AM MANAGER SHOP 2,000 mg glycopyrrolate (ROBINUL) injection intravenous, Administer over 1 Minutes, As needed, Starting on Thu07/21/22 at 0810, Anesthesia Intra-op Given 07/21/2022 8:10 AM MANAGER SHOP 0.2 mg lidocaine (cardiac) (XYLOCAINE) preservative free injection intravenous, As needed, Starting on Thu07/21/22 at 0733, Anesthesia Intra-op, Indications: Ventricular ArrhythmiasIndications:Ventricul ar Arrhythmias Given 07/21/2022 7:33 AM MANAGER SHOP 80 mg phenylephrine (HARMONY-SYNEPHRINE) 1 mg/10 mL (100 mcg/mL) in sodium chloride 0.9% (premix) intravenous, As needed, Starting on Thu07/21/22 at 0754, Anesthesia Intra-op Given 07/21/2022 8:22 AM MANAGER SHOP 50 mcg Given 07/21/2022 8:15 AM MANAGER SHOP 50 mcg Given 07/21/2022 8:11 AM MANAGER SHOP 50 mcg propofoL (DIPRIVAN) 10 mg/mL IV intravenous, As needed, Starting on Thu07/21/22 at 0733, Anesthesia Intra-op Given 07/21/2022 7:47 AM MANAGER SHOP 20 mg Given 07/21/2022 7:45 AM MANAGER SHOP 20 mg Given 07/21/2022 7:35 AM MANAGER SHOP 10 mg propofoL (DIPRIVAN) 10 mg/mL IV intravenous, Continuous PRN, Starting on Thu07/21/22 at 0733, Anesthesia Intra-op Rate/Dose Change 07/21/2022 8:38 AM MANAGER SHOP 45 mcg/kg/min 23.949 mL/hr Rate/Dose Change 07/21/2022 8:28 AM MANAGER SHOP 50 mcg/kg/min 26.6 1 mL/hr Rate/Dose Change 07/21/2022 8:25 AM MANAGER SHOP 65 mcg/kg/min 34.5 93 mL/hr sodium chloride 0.9% infusion intravenous, Continuous PRN, Starting on Thu07/21/22 at 0726, Anesthesia Intra-op New Bag 07/21/2022 7:26 AM MANAGER SHOP documented in this encounter Care Teams Software Applications Architect Relationship Specialty Start Date End Date Po Doherty MD [address] [facility] [address] [place], [place] [id number] PCP - General 09/06/14 documented as of this encounter
--- OUTSIDE RECORDS SUMMARY | 2024-08-14 06:36 | XMS_ITS | Continuity of Care Document ---
Author Organization [facility] Address [address] [place] [address] Phone Care Team Providers Care Labor Law Professor Name Role Phone Randy He MD Unavailable Unavailable Procedures Procedure Date Inject, spine, lumbar/sacral Fluoro For Spine Injections Office/outpatient visit,est, mod 2007 Inject, spine, lumbar/sacral Fluoro For Spine Injections Office/outpatient visit,est, mod 2007 Inject, spine, lumbar/sacral Fluoro For Spine Injections Office/outpatient visit,new, mod 2007 X-ray exam lower spine 2-3 views 2007 Advance Directives Directive Yes / No Effective Date File Name No Information Encounters Encounter Description Practice Location Reason(s) For Visit Diagnoses Date Provider Providers Copied on Encounter [facility], [address], [id number], [place] tel:[phone] [facility] No Information 8 Ying Padilla. [address] [facility], [address], [place], [place], [id number] , [place]. [phone] Referring Provider: Randy Jackson, [address] [facility] [address] [facility], [place], [address] . tel:[phone] Office/outpat ient visit,est, mod [facility], [address], [id number], tel:[phone] [facility] No Information 8 Abeln Neva. [address] [facility], [place] [address], [place], [place], [id number] , [place]. tel: [phone] [facility], [address] [place] [address], [id number], [place] tel:[phone] [facility] No Information 8 Ying Padilla. [address] [place] [address], [id number] , [place]. tel: [phone] Office/outpat ient visit,[facility], [facility] [place] [facility], [address], [id number], [phone] [facility] No Information 8 Ying Padilla. [address] [place] [address], [id number] , . tel: [phone] Referring Provider: Randy Jackson, [address] [place] [address], [place], [place], [address] [place] [address] . tel:[phone] [facility], [address] [place] [address], [id number], tel:[phone] [facility] No Information 8 Ying Padilla. [address] [place] [address], [id number] , . tel: [phone] Office/outpat ient visit,[facility], [facility] [place] [facility], [address] [place] [address], [id number], [phone] [facility] No Information 8 Ying Padilla. [address] [place] [address], [id number] , . tel: [phone] Family History Family Member Type Diagnosis Age At Onset No Information Payers Payer name Insurance type Covered green party ID Authoriza tion(s) [place] [id number] [facility] [id number] Social History Type Description Quantity Date Captured [...]
--- OUTSIDE RECORDS SUMMARY | 2024-08-14 06:36 | XMS_ITS | Encounter Summary ---
Author Organization [facility] Healthcare Address [address] [place] [address] Care Team Providers Care Accounts Payable Specialist Name Role Phone Po Doherty MD Primary Care Provider [phone] Reason for Visit * Auth/Cert Specialty Diagnoses / Procedures Referred By Contac t Referred To Contact Diagnoses LOW BACK PAIN Procedures [place] INSERT/ REPLACE INFUSN PUMP,PROGRAMMABLE INTRATHECAL PAIN PUMP REPLACEMENT WITH PLASMA BLADE/ [place] [address] [facility] [address] [place] [address] Phone: tel: fax: Referral ID Status Reason Start Date Expiration Date Visits Re quested Visits Authorized [id number] 05/02/2022 1 1 Encounter Details Date Type Department Care Team (Late st Contact Info) Description 07/21/2022 6:03 AM PRODUCT OWNER - 07/21/2022 10:20 AM [facility] En[facility] Operating Room [address] [place] [address] [place] [address] [facility] [address] [place] [address] End of battery life of intrathecal infusion pump; Radiculopathy, lumbosacral region Discharge Disposition: Discharge to home or self [...] on file Legal Sex Female 3:27 AM PRODUCT OWNER Gender Identity Not on file Sexual Orientation Not on file documented as of this encounter Last Filed Vital Signs Vital Sign Reading Time Taken Comments Blood Pressure 178/76 07/21/2022 9:20 AM PRODUCT OWNER Pulse 65 07/21/2022 9:20 AM PRODUCT OWNER Temperature 36.7 ??C (98.1 ??F) 07/21/2022 8:52 AM CS T Respiratory Rate 12 07/21/2022 9:20 AM PRODUCT OWNER Oxygen Saturation 96% 07/21/2022 9:20 AM PRODUCT OWNER Inhaled Oxygen Concentration - - Weight 88.7 kg (195 lb 8 oz) 07/21/2022 6:37 AM PRODUCT OWNER Height 157.5 cm (5' 2 ) 07/21/2022 6:37 AM PRODUCT OWNER Body Mass Index 35.76 07/21/2022 6:37 AM PRODUCT OWNER documented in this encounter Discharge Instructions * Discharge Instructions* Anastasiya Bean RN - 07/21/2022 8:58 AM PRODUCT OWNER FOLLOW UP CALLS You may get a couple of follow-up phone calls from us over the next 2 days. For your information, our number may come up as unknown or a random number. If our surgical flow allows, we will attempt tomake a phone call the same day of surgery if you were discharged prior to 3pm. Regardless, we will call you the next day after surgery to follow up with you on pain control and see if you have any questions or concerns. If we are unable to reach you, we will leave a voice message if that is an option and then attempt to reach you again the following day. If we are still unable to reach you on that second day after surgery, we will stop the process of follow up calls. Please reach out to your surgeon if you have any questions or concerns. We want you to be able to say your care was EXCELLENT! If it was not, please let us know! Good and Great are not enough for us, we strive for EXCELLENCE! Dressing Keep Dressing clean,dry,and intact until follow up with Dr Mcnamara in 1 week.You may sponge bathe but do not get incisions or bandage wet. You can reinforce the bandage with more tape. Ifyou run a fever, increased pain/redness/swelling or drainage at the incision site please call office. Compression Please be careful to avoid bending,lifting, twisting as much as possible for the next [address] Abdominal binder in place to help with compression and to keep firm pressure over incision site. If binder is uncomfortable you may substitute for an edwin bandage/spanx/compression shorts. Ice If you are sore,feel free to use ice at the procedural site 20 minutes at a time, every few hours. UCT OWNER UCT OWNER UCT OWNER * Attachments The following attachments cannot be sent through Care Everywhere. * Moderate Sedation (Discharge Care) (Swedish) documented in this encounter Medications at Time [...] or self care documented in this encounter H&P Notes * Edwin Mcnamara MD - 07/21/2022 7:14 AM CST Patient Name: Bertha Amado : 1935 Today's Date: 07/21/2022 PCP: Po Doherty MD Referring: No ref. provider found Most recent H&P reviewed, no changes noted. Allergies Allergen Reactions Codeine Hives, Itching and Rash Gabapentin Swelling Lorazepam Unknown Per [facility] Metoclopramide Unknown Per [facility] Prochlorperazine Unknown Per [facility] Promethazine Unknown Per [facility] Past Medical History: Diagnosis Date Arthritis Cancer (CMS/HCC) (HCC) Breast, right Chronic back pain Diverticulitis of colon GERD (gastroesophageal reflux disease) Hyperlipidemia Hypertension Hypothyroidism Type 2 diabetes mellitus ([facility]) Past Surgical History: Procedure Laterality Date APPENDECTOMY [...] No Known Problems Father HOME MEDICATIONS : atorvastatin (LIPITOR) 40 mg tablet calcium carbonate (CALCIUM 600 ORAL) chlorhexidine (HIBICLENS) 4 % external liquid furosemide (LASIX) 20 mg tablet levothyroxine (SYNTHROID) 100 mcg tablet metFORMIN (GLUCOPHAGE) 500 mg tablet metoprolol tartrate (LOPRESSOR) 25 mg immediate release tablet mupirocin (BACTROBAN) 2 % ointment omeprazole (PriLOSEC) 40 mg capsule potassium chloride ER 10 mEq CR capsule aspirin 81 mg enteric coated tablet docusate sodium (COLACE) 100 mg capsule HYDROcodone-acetaminophen (NORCO) 7.5-325 mg per tablet ROS: WNL for pt incl cardioresp PE: WNL for pt incl cardioresp Procedure(s): INTRATHECAL PAIN PUMP REPLACEMENT WITH PLASMA BLADE/ 60 MIN UCT OWNER documented in this encounter Miscellaneous Notes * Op Note - Edwin Mcnamara MD - 07/21/2022 7:48 AM CST Procedure performed: Replacement of intrathecal pump and intrathecal catheter Indication for procedure: The patient has an intrathecal pump which is at end of battery life and is here today for replacement. The patient has pain in the setting of lumbar radiculopathy and low back pain. Informed Consent: Risks, benefits, complications, and alternatives to proceeding with the procedurewere discussed in detail with the patient. Questions were solicited and answered, and the patient endorsed explicit understanding and consent to proceed. The patient was informed risks included but are not limited to: serious infection, bleeding/bruising, allergic reaction, nerve or organ injury, paralysis, increased pain, worsening mobility, lack of pain relief, stroke, and . Description of procedure: After the above, the patient was brought to the operating room. He anesthesia induced. Time-out performed. Preoperative antibiotics administered. The area overlying the pumpwas prepped and draped in usual sterile fashion. Lidocaine with epinephrine was used to anesthetizeskin and subcutaneous tissue overlying the pump. Fifteen blade was used to make incision. PlasmaBlade was used to dissect down to the pump which was easily freed from the pocket. We were unable to aspirate CSF. The tubing was disconnected from the pump and medication sterilely transferred from old pump to the new pump and a priming of the system was performed. The old catheter segment was disconnected from the spinal segment and a new catheter segment connected via the pin connector. Once the prime was completed this was then connected to the pump. The pump and pocket were copiously irrigatedwith solution. A Tyrx pouch was placed deep in the pump pocket and 0 Ethibond was used to securethe pump in the pocket which was then closed with 2-0 Vloc followed by 4-0 Vloc and Dermabond with 4 x 4 and Tegaderm as well. The patient tolerated the procedure well and there were no apparent complications. UCT OWNER documented in this encounter Plan of Treatment Not on file documented as of this encounter Procedures Procedure Name Priority Date/Time Associated Diagnosis Comments POCT GLUCOSE DEVICE Routine 07/21/2022 8 :56 AM PRODUCT OWNER INSERTION INTRATHECAL PUMP 07/21/2022 7:26 AM PRODUCT OWNER LOW BACK PAIN POCT GLUCOSE DEVICE Routine 07/21/2022 6 :52 AM PRODUCT OWNER documented in this encounter Results * POCT glucose (07/21/2022 8:56 AM PRODUCT OWNER) Glucose, POC 102 70 - 199 mg/dL [facility] Blood 07/21/2022 8:56 AM PRODUCT OWNER 07/21/2022 8:56 AM PRODUCT OWNER Edwin Mcnamara MD LAB POCT ORDERABLES - DEVICE Final Result Performing Organization Address [facility] de Phone Number [place] [address] [facility] [place] [address] * POCT glucose (07/21/2022 6:52 AM PRODUCT OWNER) Glucose, POC 89 70 - 199 mg/dL [facility] Blood 07/21/2022 6:52 AM PRODUCT OWNER 07/21/2022 6:52 AM PRODUCT OWNER Edwin Mcnamara MD LAB POCT ORDERABLES - DEVICE Final Result Performing Organization Address [facility] de Phone Number [place] [address] [facility] [place] [address] documented in this encounter Visit Diagnoses Diagnosis End of battery life of intrathecal infusion pump Radiculopathy, lumbosacral region Thoracic or lumbosacral neuritis or radiculitis, unspecified documented in this encounter Administered Medications Inactive Administered Medications - up to 3 most recent administrations Medication Order MAR Action Action Date Dose Rate Site acetaminophen (TYLENOL) 500 mg tablet - ADS Override Pull Starting on Thu07/21/22 at 0909, For 1 dose, Created by cabinet override acetaminophen (TYLENOL) tablet 500 mg 500 mg, oral, Once, On Thu07/21/22 at 0930, For 1 dose, Phase I, When able to tolerate PO., Indications: PainIndications:Pain Given 07/21/2022 9:10 AM PRODUCT OWNER 500 mg sodium chloride 0.9% 0.9% infusion - ADS Override Pull Starting on Thu07/21/22 at 0641, For 1 dose, Created by cabinet override sodium chloride 0.9% infusion 30 mL/hr, intravenous, Continuous, Starting on Thu07/21/22 at 0645, Pre-Op New Bag 07/21/2022 7:24 AM PRODUCT OWNER 30 mL/hr 30 mL/ hr documented in this encounter Discontinued Medications Medication Sig Discontinue Reason Start Date End Da te mupirocin (BACTROBAN) 2 % ointmentIndications:Pre -op testing Apply to bilateral nares twice daily, beginning 5 days pre-op Stop Taking at Discharge 05/02/2022 07/21/2022 chlorhexidine (HIBICLENS) 4 % external liquidIndications:Skin Disinfection Shower with daily beginning 5 days pre-op Stop Taking at Discharge 05/02/2022 07/21/2022 documented as of this encounter Active and Recently Administered Medications Times are shown in PRODUCT OWNER. Scheduled Medication Order 07/19/2022 07/20/2022 07/21/2022 acetaminophen (TYLENOL) tablet 500 mg (COMPLETED) 500 mg, oral, Once, On Thu07/21/22 at 0930, For 1 dose, Phase I, When able to tolerate PO., Indications: Pain 0910 (Given - Provid er: Jeri Davis RN) ceFAZolin (ANCEF) 1 gram/10 mL in sterile water (premix) 2,000 mg (COMPLETED) 2,000 mg, intravenous, at 400 mL/hr, Administer over 3 Minutes, Once, On Thu07/21/22 at 0800, For 1 dose, Pre-Op, Indications: Prophylaxis, Surgical 0740 (Given - Provid er: ALEXANDER Marin) Continuous Medication Order 07/19/2022 07/20/2022 07/21/2022 sodium chloride 0.9% infusion 30 mL/hr, intravenous, Continuous, Starting on Thu07/21/22 at 0645, Pre-Op 0724 (New Bag - Prov ider: Karina Fritz RN)0852 (Continued from OR - Provider: Jeri Davis RN)1421 (Due: Stopped) sodium chloride 0.9% infusion 50 mL/hr, intravenous, Continuous, Starting on Thu07/21/22 at 0930, Phase I 0901 (Not Given - Pr ovider: Jeri Davis RN - Reason: Other - Comment: Arrived from OR with NS @ 30/ml per hour per Anesthesia provider) PRN Medication Order 07/19/2022 07/20/2022 07/21/2022 lidocaine-EPINEPHrine (XYLOCAINE with EPI) 1 %-1:200,000 preservative free injection (CANCELED) As needed, Starting on Thu07/21/22 at 0825, Intra-Op, Indications: Administration of Local Anesthesia 0825 (Given - Provid er: Edwin Mcnamara MD) neomycin-polymyxin B (NEOSPORIN-) 1 mL in sodium chloride 0.9% 1,000 mL irrigation solution (CANCELED) As needed, Starting on Thu07/21/22 at 0751, Intra-Op 0751 (Given - Provid er: Edwin Mcnamara MD) polymyxin B injection (CANCELED) As needed, Starting on Thu07/21/22 at 0751, Intra-Op 0751 (Given - Provid er: Edwin Mcnamara MD) sodium chloride 0.9% irrigation (CANCELED) As needed, Starting on Thu07/21/22 at 0751, Intra-Op 0751 (Given - Provid er: Edwin Mcnamara MD) vancomycin (VANCOCIN) solution (CANCELED) As needed, Starting on Thu07/21/22 at 0751, Intra-Op 0751 (Given - Provid er: Edwin Mcnamara MD) documented in this encounter Orders Medications Ordered That Ted ht Not Have Been Administered Count Last Ordered Date First Ordered Date Carrier Fluids for Secondary Infusion - 0.9% Sodium Chloride 1 07/21/2022 ceFAZolin (ANCEF) 1 gram/10 mL in sterile water (premix) - ADS Override Pull 1 07/21/2022 ceFAZolin (ANCEF) 1 gram/10 mL in sterile water (premix) 2,000 mg 1 07/21/2022 haloperidol (HALDOL) injection 1 mg 1 07/21 hydrALAZINE (APRESOLINE) injection 5 mg 1 1 09/21/2021 labetaloL (NORMODYNE,TRANDAT E) injection 5 mg 1 07/21/2022 lidocaine-EPINEPHrine (XYLOC FLASH with EPI) 1 %-1:200,000 preservative free injection 1 07/21/2022 naloxone (NARCAN) 0.4 mg/mL injection 0.04-0.4 mg 1 07/21/2022 neomycin-polymyxin B (HARMONY SPORIN-) 1 mL in sodium chloride 0.9% 1,000 mL irrigation solution 1 07/21/2022 ondansetron (ZOFRAN) injection 4 mg 1 07/21 polymyxin B injection 1 07/21/2022 sodium chloride 0.9% flush 0.5-20 mL 1 07/10 sodium chloride 0.9% infusion 1 07/21/2022 sodium chloride 0.9% irrigation 1 vancomycin (VANCOCIN) solution 1 07/21/2022 Discharge Count Last Ordered Date First Orde red Date DISCHARGE PATIENT 1 07/21/2022 documented in this encounter Care Teams Accounts Payable Specialist Relationship Specialty Start Date End Date Po Doherty MD [address] [place] [address] PCP - General 09/06/14 documented as of this encounter
--- OUTSIDE RECORDS SUMMARY | 2024-08-14 06:36 | XMS_ITS | Continuity of Care Document ---
Author Organization [facility] Address [address] [place] [address] Phone Care Team Providers Care Pneumatic Tester Name Role Phone Ying TAYLOR, Randy Unavailable Unavailable Procedures Procedure Date MRI of lumbar spine Advance Directives Directive Yes / No Effective Date File Name No Information Encounters Encounter Description Practice Location Reason(s) For Visit Diagnoses Date Provider Providers Copied on Encounter [facility], [address] [place] [address], [id number], tel:[phone] [facility] No Information Ying Padilla. [address] [address], [place], [place], [id number], [place]. tel:[phone] Referring Provider: Randy Jackson, [address] [address], [place], [address] . tel:[phone] Family History Family Member Type Diagnosis Age At Onset No Information Payers Payer name Insurance type Covered republican ID Authoriza tion(s) [place] Part B [id number] [employer] [id number] Social History Type Description Quantity Date Captured [...]
--- OUTSIDE RECORDS SUMMARY | 2024-08-14 06:36 | XMS_ITS | Encounter Summary ---
Author Organization [facility] Healthcare Address [address] [place] [address] Care Team Providers Care Fruit Vendor Name Role Phone Po Doherty MD Primary Care Provider [phone] Reason for Referral * Consultation (Routine) - Closed Specialty Diagnoses / Procedures Referred By Contac t Referred To Contact Pain Management Diagnoses [place] [id number] [facility] [address] [place] [address] Phone: tel: fax: [facility] [address] [place] [address] Phone: tel: fax: Referral ID Status Reason Start Date Expiration Date V isits Requested Visits Authorized [id number] Closed Specialty Services Required 05/02/2022 06/01/2023 1 1 Question Answer Please select the performing region: [facility] [[id number]] Please select the performing department: [facility] [[id number]] # of visits: 1 Reason for Visit * Reason Comments Initial Consult * Consultation (Routine) - Closed Specialty Diagnoses / Procedures Referred By Contac t Referred To Contact Pain Management Diagnoses [place]os[place] [address] [facility] [address] [place] [address] Phone: tel: fax: [facility] [address] [place] [address] Phone: tel: fax: Referral ID Status Reason Start Date Expiration Date V isits Requested Visits Authorized [id number] Closed Specialty Services Required 05/02/2022 06/01/2023 1 1 Encounter Details Date Type Department Care Team (Late st Contact Info) Description 05/12/2022 8:33 AM CDT - 05/12/2022 11:59 PM CDT Hospital Encounter [facility] [address] [place] [address] [place] [address] 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 Gender Identity Not on file Sexual Orientation Not on file documented as of this encounter Last Filed Vital Signs Vital Sign Reading Time Taken Comments Blood Pressure 196/71 05/12/2022 9:35 AM CDT Pulse 50 05/12/2022 9:35 AM CDT Temperature - - Respiratory Rate 18 05/12/2022 9:35 AM CDT Oxygen Saturation 100% 05/12/2022 9:35 AM CDT Inhaled Oxygen Concentration - - Weight 88.9 kg (196 lb) 05/12/2022 9:35 AM CDT Height 157.5 cm (5' 2 ) 05/12/2022 9:35 AM CDT Body Mass Index 35.85 05/12/2022 9:35 AM CDT documented in this encounter Medications at Time of Discharge aspirin 81 mg enteric coated tablet Take 81 mg by mouth daily atorvastatin (LIPITOR) 40 mg tablet Take 40 mg by mouth nightly 04/07/2022 docusate sodium (COLACE) 100 mg capsule Take 100 mg by mouth daily as needed furosemide (LASIX) 20 mg tablet Take 20 mg by mouth 2 (two) times a day 40 mg AM 20 mg with dinner HYDROcodone-acetam inophen (NORCO) 7.5-325 mg per tablet Take 1 [...] CR capsule Take by mouth daily 04/07/2022 chlorhexidine (HIBICLENS) 4 % external liquidIndications: Skin Disinfection Shower with daily beginning 5 days pre-op 236 mL 05/02/2022 2 mupirocin (BACTROBAN) 2 % ointmentIndication s:Pre-op testing Apply to bilateral nares twice daily, beginning 5 days pre-op 1 g 1 05/02/2022 2 documented as of this encounter Discharge Disposition Disposition Code Departure Means Destination Discharge to home or self care documented in this encounter Progress Notes * Edwin Mcnamara MD - 05/12/2022 9:00 AM CDT Patient Name: Bertha Amado : 1935 Today's Date: 05/12/2022 PCP: Po Doherty MD Referring: Leanne Moran MD Chief Complaint Patient presents with Initial Consult HPI: Bertha is here for initial consult, referred by Dr. Moran. She reports frequent low back pain, with a radicular component that extends down her bilateral legs to the feet. She describes the pain asdull, aching, and burning, and rates it 2/10 today (6/10 on average in the past week). She denies motor weakness or bladder/bowel incontinence. Aggravating factors include any activity. Alleviating factors include sitting. Bertha's pain began in 2004, and persisted despite back surgery. She is currently followed by Dr. Moran for Pain Management. 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 She reports 75% relief with her pump medication, and denies side effects. Her current pump has reached its end of battery life. Going forward, she is interested in ITC pump replacement. Previous treatments: Back surgery, ITC pump implant and replacement, PT, steroid injections Prior medications utilized: Tylenol, Naproxen, Ibuprofen, Gabapentin, Hydrocodone Allergies Allergen Reactions Codeine Gabapentin Lorazepam Metoclopramide Prochlorperazine Promethazine Past Medical History: Diagnosis Date HX OTHER MEDICAL HTN, dyslipidemia, depression, hypothyroidism, chr; Comments: MAHENDRA 09/06/2014 - Patient Active Problem List Diagnosis Myocardial infarction (CMS/HCC) (HCC) Hypertension Hyperlipidemia Hypothyroidism Sleep apnea End of battery life of intrathecal infusion pump Radiculopathy, lumbosacral region History reviewed. No pertinent surgical history. Social History Tobacco Use Smoking status: Never Smokeless tobacco: None Substance and Sexual Activity Drug use: None Sexual activity: None Alcohol Use: Not on file History reviewed. No pertinent family history. HOME MEDICATIONS : aspirin 81 mg enteric coated tablet atorvastatin (LIPITOR) 40 mg tablet chlorhexidine (HIBICLENS) 4 % external liquid docusate sodium (COLACE) 100 mg capsule furosemide (LASIX) 20 mg tablet HYDROcodone-acetaminophen (NORCO) 7.5-325 mg per tablet levothyroxine (SYNTHROID) 100 mcg tablet metFORMIN (GLUCOPHAGE) 500 mg tablet metoprolol tartrate (LOPRESSOR) 25 mg immediate release tablet mupirocin (BACTROBAN) 2 % ointment omeprazole (PriLOSEC) 40 mg capsule potassium chloride ER 10 mEq CR capsule Review of Systems Review of systems completed, reviewed, and scanned into the chart. Physical Exam Vitals: 05/12/22 0935 BP: (!) 196/71 Pulse: 50 Resp: 18 SpO2: 100% Weight: 88.9 kg (196 lb) Height: 157.5 cm (5' 2 ) Estimated body mass index is 35.85 kg/m?? as calculated from the following: Height as of this encounter: 157.5 cm (5' 2 ). Weight as of this encounter: 88.9 kg (196 lb). No apparent distress Alert and oriented Normal respiratory effort Abdomen not distended Assessment Encounter Diagnoses Name Primary? Lumbosacral radiculopathy Pre-op testing Yes End of battery life of intrathecal infusion pump Radiculopathy, lumbosacral region Medical Decision Making / Plan: VAS reviewed with score of: 2/10 PEG Scale Assessing Pain Intensity and Interference reviewed with score of: 6/10 Oswestry Low Back Disability Questionnaire reviewed with score of: 29/50 Current Opioid Misuse Measure (COMM) reviewed with score of : 3 (> or equal to 9 is higher risk of opioid misuse) [place] and [place] Prescription Drug Monitoring Reviewed and found appropriate. Plan: Bertha is here today with pain that based on history and physical is most consistent with pain secondary to ongoing low back pain issues. She has a intrathecal pump which provides excellent relief for her pain. Her pump is at end of battery life and she is referred here by her pain management physician for replacement of the pump. We discussed details of this as well as reviewed preoperative recommendations and instructions. The pump pocket itself is relatively comfortable as well and thereforewe will plan for just replacement of the pump. She is already scheduled for this in July so we will plan to see her in the operating room then. Goals of Treatment: Treat underlying pathology, improve [...] may be discussed at the next visit. Tobacco Screening: Bertha Amado was screened for tobacco use. Patient is not a tobacco user. Tobacco counseling not applicable. Pre-hypertension/Hypertension: The patient has been informed that [...] try weight loss and exercise for management. 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 Dictations not proofread. Problem list pertinent to today???s visit reviewed, but entire patient problem list not reviewed today. This note is prepared by Magad Wills, acting as a scribe for Edwin Mcnamara MD. I electronically signed this note at 2:13 PM on 05/12/22. I, Edwin Mcnamara MD, have personally performed the services described in the documentation,reviewed the documentation as recorded by the scribe in my presence, and it accurately and completely records my words and actions though there are potential variances in recording and surgical orderly.Dictations not proofread. documented in this encounter Plan of Treatment Scheduled Orders Name Type Priority Associated Diagnoses Order Schedule COVID-19 CORONAVIRUS RNA (OUTSIDE LABS) Nasopharyngeal Microbiology STAT Pre-op testing Expected: 07/17/2022, Expires: 05/12/2023 COVID-19 CORONAVIRUS RNA (OUTSIDE LABS) Nasopharyngeal Microbiology Routine Pre-op testing Once for 1 Occurrences starting 05/12/2022 until 05/12/2022 Scheduled Referrals Name Type Priority Associated Diagnoses Orde r Schedule Ambulatory referral to Pain Management Outpatient Referral Routine Lumbosacral radiculopathy Once for 1 Occurrences starting 05/12/2022 until 05/12/2022 documented as of this encounter Visit Diagnoses Diagnosis Pre-op testing- Primary Unspecified pre-operative examination Lumbosacral radiculopathy Thoracic or lumbosacral neuritis or radiculitis, unspecified End of battery life of intrathecal infusion pump Radiculopathy, lumbosacral region Thoracic or lumbosacral neuritis or radiculitis, unspecified documented in this encounter Historical Medications * This list may reflect changes made after this encounter. aspirin 81 mg enteric coated tablet Take 81 mg by mouth daily docusate sodium (COLACE) 100 mg capsule Take 100 mg by mouth daily as needed HYDROcodone-aceta minophen (NORCO) 7.5-325 mg per tablet Take 1 tablet by mouth 2 (two) times a day as needed 03/08/2022 potassium chloride ER 10 mEq CR capsule Take by mouth daily 04/07/2022 levothyroxine (SYNTHROID) 100 mcg tablet Take 100 mcg by mouth daily 05/09/2022 metoprolol tartrate (LOPRESSOR) 25 mg immediate release tablet Take 25 mg by mouth 2 (two) times a day 04/07/2022 omeprazole (PriLOSEC) 40 mg capsule Take 40 mg by mouth daily 04/07/2022 furosemide (LASIX) 20 mg tablet Take 20 mg by mouth 2 (two) times a day 40 mg AM 20 mg with dinner atorvastatin (LIPITOR) 40 mg tablet Take 40 mg by mouth nightly 04/07/2022 metFORMIN (GLUCOPHAGE) 500 mg tablet Take 500 mg by mouth 2 (two) times a day 03/08/2022 added in this encounter Care Teams Fruit Vendor Relationship Specialty Start Date End Date Po Doherty MD [address] [facility] [address] [place] [address] PCP - General 09/06/14 documented as of this encounter
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
--- OUTSIDE RECORDS SUMMARY | 2024-08-14 06:36 | XMS_ITS | Continuity of Care Document ---
Author Organization [facility] Address [address] [address] [place] [phone] Phone Care Team Providers Care Licensed Insurance Agent Name Role Phone Samanta TAYLOR, [place] Unavailable Unavailable Allergies, Adverse Reactions, Alerts Substance Reaction Status Criticality codeine Unknown Active No Information Medications Medication Instructions Dosage Effective Dates (start - stop) Status Comments DOXYCYCLINE MONOHYDRATE (unknown strength) Not Available - Active LEVAQUIN (unknown strength) Not Available - Active XARELTO (unknown strength) Not Available - Active ASPIRIN (unknown strength) Not Available - Active KEFLEX (unknown strength) Not Available - Active VICOPROFEN (unknown strength) Not Available - Active ATORVASTATIN CALCIUM (unknown strength) Not Available - Active CALCIUM 600-VIT D3 (unknown strength) Not Available - Active LEXAPRO (unknown strength) Not Available - Active LASIX (unknown strength) Not Available - Active TIROSINT (unknown strength) Not Available - Active LISINOPRIL (unknown strength) Not Available - Active KLOR-CON 8 (unknown strength) Not Available - Active Procedures Procedure Date OFFICE/OUTPATIENT VISIT EST MU Reporting OFFICE/OUTPATIENT VISIT EST MU Reporting OFFICE/OUTPATIENT VISIT EST MU Reporting OFFICE/OUTPATIENT VISIT EST Advance Directives Directive Yes / No Effective Date File Name Resuscitation Not Answered N/A N/A Life Support Not Answered N/A N/A Intubation Not Answered N/A N/A Antibiotics Not Answered N/A N/A IV Fluid Support Not Answered N/A N/A Tube Feed Not Answered N/A N/A Other Directive N/A N/A WARNING:The information contained in this section is historical and is provided for information only and does not constitute a legal document or any assurance that the information is still accurate. Please verify the information with the rodriguez of the legal document before using it for clinical purposes. Encounters Encounter Description Practice Location Reason(s) For Visit Diagnoses Date Provider Providers Copied on Encounter OFFICE/OUTPA TIENT VISIT EST [facility], [address] [facility] [address] [address], [place], [address], [place] tel:[phone] [facility] Knee joint replacement (nonglobal) 4 Samanta [place]. [address] [place], [place], [id number] . tel: [phone] Referring Provider: Po Chávez, [address], [place], [place], [facility]. tel:[phone] OFFICE/OUTPA TIENT VISIT EST [facility], [address], [address], [place] tel:[phone] [facility] Knee joint replacement 3 Samanta [place]. [address] [facility] [place], [id number] . tel:[phone] Referring Provider: Po Chávez, [address], [place], [facility]. tel:[phone] [facility], [address] [facility] [address], [address], [place] tel:[phone] [facility] No Information 3 Samanta Clifton. [address] [facility] [place], [place], [id number] . tel:[phone] OFFICE/OUTPA TIENT VISIT EST [facility], [address], [address], [place] tel:[phone] [facility] Knee joint replacement (nonglobal)Contu shanna, knee 3 Samanta [place]. [address] [place], [place], [id number] . tel: [phone] Referring Provider: [address], [place], [address]. tel:[phone] OFFICE/OUTPA TIENT VISIT EST [facility], [address], [place], [address], tel:[phone] [facility] Hypertension, UnspecifiedKnee joint replacement 3 Samanta [place]. [address], [place], [place], [id number] . tel: [phone] Referring Provider: Po Chávez, [address], [place], [address]. tel:[phone] Family History Family Member Type Diagnosis Age At Onset Problem (finding) Family history of breas t cancer Payers Payer name Insurance type Covered republican ID Authoriza tion(s) No Information Social History Type Description Quantity Date Captured Comments Alcohol Use Details No Caffeine Use Details Unknown Tobacco Use Status No Information Smoking Status Never smoker Sex Female Vital Signs Date / Time: Height Weight BMI Pulse Rate Blood Pressure Temperature Respiratory Rate Body Surface Area Head Circumference Head Circ. Percentile Wt./Ac. Percentile BMI percentile Pulse Ox Inhaled Ox 10:33 AM 66.00 in 242.00 lbs 39.0 6 kg/m eter (2) 157/71 mm[Hg] Chief Complaint And Reason For Visit No Information Reason For Referral Reason For Referral No Information Plan Of Treatment Date Type Action Status Referral Ordered: RADEX KNE 3 VIEWS Bilateral ordered Referral Ordered: RADEX PELVIS 1/2 VIEWS ordered Referral Ordered: RADEX HIP UNI COMPL MINIMUM 2 VIEWS LT ordered Referral Ordered: RADEX KNE 3 VIEWS LT ordered Referral Ordered: RADEX KNE 3 VIEWS Bilateral knee ordered History Of Present Illness Encounter Date Complaint History Of Prese nt Illness No Information Functional Status Date Functional Assessmen t No Information Instructions Date Instruction Additional Infor mation Activity as tolerated Continue medication as prescribe d Activity as tolerated OTC medication - Activity as tolerated Assessments Type Assessment Date No Information Patient Care Teams Name Effective Dates (start - stop) Status Members No Information
--- OUTSIDE RECORDS SUMMARY | 2024-08-14 06:36 | XMS_ITS | Encounter Summary ---
Author Organization 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 - 07/16/2015 5:33 PM ORAL AND MAXILLOFACIAL PATHOLOGIST Hospital Encounter [facility] Edwin Zuleta MD [facility] [place] [address] Low back pain; Other chronic pain; Arthrodesis status; Other spondylosis, lumbar region; Age-related osteoporosis without current pathological fracture; Personal history of malignant neoplasm of breast; FDC current use of aspirin; 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; Other oil heaterman (current) drug therapy Social History Tobacco Use Types Packs/Day Years Used Date Smoking Tobacco: Never Alcohol Use Standard Drinks/Week Comments No 0 (1 standard drink = 0.6 oz pur e alcohol) Comments Unknown Sex and Gender Information Value Date Recorded Sex Assigned at Not on file Legal Sex Female 3:27 AM ORAL AND MAXILLOFACIAL PATHOLOGIST Gender Identity Not on file Sexual Orientation Not on file documented as of this encounter Plan of Treatment Not on file documented as of this encounter Procedures Procedure Name Priority Date/Time Associated Diagnosis Comments BLOOD GLUCOSE, POC Routine 07/16/2015 10 :52 AM ORAL AND MAXILLOFACIAL PATHOLOGIST DISCHARGE LABORATORY CUMULATIVE REPORT 07/16/2015 documented in this encounter Results * Blood glucose, POC (07/16/2015 10:52 AM ORAL AND MAXILLOFACIAL PATHOLOGIST) [facility] Glucose, POC, bld 153 70 - 199 mg/dl HISTORICAL RESULTS Blood specimen (specimen) 07/16/2015 10:52 AM ORAL AND MAXILLOFACIAL PATHOLOGIST Historical Provider LAB BLOOD ORDERABLES Faiza l Result HISTORICAL RESULTS * DISCHARGE LABORATORY CUMULATIVE REPORT (07/16/2015) Narrative 07/16/2015 Ordered by an unspecified provider. 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
--- OUTSIDE RECORDS SUMMARY | 2024-08-14 06:36 | XMS_ITS | Encounter Summary ---
Author Organization [facility] Healthcare Address [address] [place] [address] Care Team Providers Care Panel Lay Up Worker Name Role Phone Po Doherty MD Primary Care Provider [phone] Reason for Visit * Auth/Cert Specialty Diagnoses / Procedures Referred By Contac t Referred To Contact Diagnoses LOW BACK PAIN Procedures OR INSERT/ REPLACE INFUSN PUMP,PROGRAMMABLE INTRATHECAL PAIN PUMP REPLACEMENT WITH PLASMA BLADE/ 60 [place] [address] [facility] [address] [place] [address] Phone: tel: fax: Referral ID Status Reason Start Date Expiration Date Visits Re quested Visits Authorized [id number] 05/02/2022 1 1 Encounter Details Date Type Department Care Team (Late st Contact Info) Description 07/21/2022 7:30 AM OTR FLATBED DRIVER - 07/21/2022 10:00 AM [facility] Surgery [facility] Operating Room [address] [place] [address] [place] [address] [facility] [address] [place] [address] INTRATHECAL PAIN PUMP REPLACEMENT AND CATHETER REVISION WITH PLASMA BLADE Surgery Details Date/Time Status Location OR Service Patient Class Case Class Case Type Trauma Case? 07/21/2022 7:30 AM Posted OPERATING ROOM OR Pain Management Outpatient Elective Panel 1 Procedure LRB Anes Op Region Wound Class Comments INTRATHECAL PAIN PUMP REPLACEMENT AND CATHETER REVISION WITH PLASMA BLADE N/A Monitor Anesthesia Care Abdomen Class I - Clean [facility] Surgeon Surgeon Role Service Panel Edwin Mcnamara MD Primary Pain Managem ent 1 Beuer, Christopher Yared, MD Primary Pain Managem ent 1 documented in this encounter Social History Tobacco [...] on file Legal Sex Female 3:27 AM OTR FLATBED DRIVER Gender Identity Not on file Sexual Orientation Not on file documented as of this encounter Last Filed Vital Signs Vital Sign Reading Time Taken Comments Blood Pressure 178/76 07/21/2022 9:20 AM OTR FLATBED DRIVER Pulse 65 07/21/2022 9:20 AM OTR FLATBED DRIVER Temperature 36.7 ??C (98.1 ??F) 07/21/2022 8:52 AM CS T Respiratory Rate 12 07/21/2022 9:20 AM OTR FLATBED DRIVER Oxygen Saturation 96% 07/21/2022 9:20 AM OTR FLATBED DRIVER Inhaled Oxygen Concentration - - Weight 88.7 kg (195 lb 8 oz) 07/21/2022 6:37 AM OTR FLATBED DRIVER Height 157.5 cm (5' 2 ) 07/21/2022 6:37 AM OTR FLATBED DRIVER Body Mass Index 35.76 07/21/2022 6:37 AM OTR FLATBED DRIVER documented in this encounter Discharge Instructions * Discharge Instructions* Anastasiya Bean RN - 07/21/2022 8:58 AM OTR FLATBED DRIVER FOLLOW UP CALLS You may get a [...] minutes at a time, every few hours. FLATBED DRIVER FLATBED DRIVER FLATBED DRIVER * Attachments The following attachments cannot be sent through Care Everywhere. * Moderate Sedation (Discharge Care) (Iranian) documented in this encounter Medications at Time [...] and Rash Gabapentin Swelling Lorazepam Unknown Per [facility] Metoclopramide Unknown Per [facility] Prochlorperazine Unknown Per [facility] Promethazine Unknown Per [facility] Past Medical History: Diagnosis Date Arthritis Cancer (CMS/HCC) (HCC) Breast, right Chronic back pain Diverticulitis of colon GERD (gastroesophageal reflux disease) Hyperlipidemia Hypertension Hypothyroidism Type 2 diabetes mellitus (HCC) Past Surgical History: Procedure Laterality Date APPENDECTOMY [...] PUMP REPLACEMENT WITH PLASMA BLADE/ 60 MIN FLATBED DRIVER documented in this encounter Miscellaneous Notes * [...] well and there were no apparent complications. FLATBED DRIVER documented in this encounter Plan of Treatment Not on file documented as of this encounter Procedures Procedure Name Priority Date/Time Associated Diagnosis Comments POCT GLUCOSE DEVICE Routine 07/21/2022 8 :56 AM OTR FLATBED DRIVER INSERTION INTRATHECAL PUMP 07/21/2022 7:26 AM OTR FLATBED DRIVER LOW BACK PAIN POCT GLUCOSE DEVICE Routine 07/21/2022 6 :52 AM OTR FLATBED DRIVER documented in this encounter Results * POCT glucose (07/21/2022 8:56 AM OTR FLATBED DRIVER) Glucose, POC 102 70 - 199 mg/dL [facility] Blood 07/21/2022 8:56 AM OTR FLATBED DRIVER 07/21/2022 8:56 AM OTR FLATBED DRIVER Edwin Mcnamara MD LAB POCT ORDERABLES - DEVICE Final Result Performing Organization Address [facility] de Phone Number [facility] [address] [facility] [place] [address] * POCT glucose (07/21/2022 6:52 AM OTR FLATBED DRIVER) Glucose, POC 89 70 - 199 mg/dL [facility] Blood 07/21/2022 6:52 AM OTR FLATBED DRIVER 07/21/2022 6:52 AM OTR FLATBED DRIVER Edwin Mcnamara MD LAB POCT ORDERABLES - DEVICE Final Result Performing Organization Address [facility] de Phone Number [facility] [address] [place] [address] documented in this encounter Visit Diagnoses Not [...] PO., Indications: PainIndications:Pain Given 07/21/2022 9:10 AM OTR FLATBED DRIVER 500 mg lidocaine-EPINEPHrine (XYLOCAINE with EPI) 1 %-1:200,000 preservative free injection As needed, Starting on Thu07/21/22 at 0825, Intra-Op, Indications: Administration of Local AnesthesiaIndications:A dministration of Local Anesthesia Given 07/21/2022 8:25 AM OTR FLATBED DRIVER 30 mL Surgical Site neomycin-polymyxin B (NEOSPORIN-) 1 mL in sodium chloride 0.9% 1,000 mL irrigation solution As needed, Starting on Thu07/21/22 at 0751, Intra-Op Given 07/21/2022 7:51 AM OTR FLATBED DRIVER polymyxin B injection As needed, Starting on Thu07/21/22 at 0751, Intra-Op Given 07/21/2022 7:51 AM OTR FLATBED DRIVER 500,000 Units sodium chloride 0.9% 0.9% infusion - ADS Override Pull Starting on Thu07/21/22 at 0641, For 1 dose, Created by cabinet override sodium chloride 0.9% infusion 30 mL/hr, intravenous, Continuous, Starting on Thu07/21/22 at 0645, Pre-Op New Bag 07/21/2022 7:24 AM OTR FLATBED DRIVER 30 mL/hr 30 mL/hr sodium chloride 0.9% irrigation As needed, Starting on Thu07/21/22 at 0751, Intra-Op Given 07/21/2022 7:51 AM OTR FLATBED DRIVER 1,000 mL vancomycin (VANCOCIN) solution As needed, Starting on Thu07/21/22 at 0751, Intra-Op Given 07/21/2022 7:51 AM OTR FLATBED DRIVER 1,000 mg documented in this encounter Discontinued Medications Medication [...] Recently Administered Medications Times are shown in OTR FLATBED DRIVER. Scheduled Medication Order 07/19/2022 07/20/2022 07/21/2022 acetaminophen [...] needed, Starting on Thu07/21/22 at 0751, Intra-Op 075 (Given - Provid er: Edwin Mcnamara MD) [...] (NORMODYNE,TRANDAT E) injection 5 mg 1 07/21/2022 naloxone (NARCAN) 0.4 mg/mL injection 0.04-0.4 mg 1 07/21/2022 ondansetron (ZOFRAN) injection 4 mg 1 07/21 sodium chloride 0.9% flush 0.5-20 mL 1 07/10 sodium chloride 0.9% infusion 1 07/21/2022 Discharge Count Last Ordered Date First Orde red Date DISCHARGE PATIENT 1 07/21/2022 documented in this encounter Care Teams Panel Lay Up Worker Relationship Specialty Start Date End Date Kopjas, Po C., MD [address] [facility] [address] [place] [address] PCP - General 09/06/14 documented as of this encounter
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
--- OUTSIDE RECORDS SUMMARY | 2024-08-14 06:37 | XMS_ITS | Encounter Summary ---
Author Organization [facility] Facility Care Team Providers Care Manager [employer] Name Role Phone Unavailable Primary Care Provider Unavailabl e Encounter Details Date Type Department Care Team (Late st Contact Info) Description 04/16/2012 10:11 PM CDT - 04/20/2012 2:04 PM CDT Hospital Encounter [facility] Johanny Duong MD [address] [facility] [address] [place] [address] Low back pain; Essential hypertension; Personal history of malignant neoplasm of breast; Osteoarthrosis; Osteoporosis; Use of selective estrogen receptor modulators (SERMs); Arthrodesis status; Knee joint replaced by other means; Acquired absence of both cervix and uterus; Other acquired absence of organ; Personal history of allergy to analgesic agent; Other constipation; Encounter for long-term (current) use of aspirin Social History Tobacco Use Types Packs/Day Years Used Date Smoking Tobacco: Never Assessed Comments Unknown Sex and Gender Information Value Date Recorded Sex Assigned at Not on file 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 Gender Identity Not on file Sexual Orientation Not on file documented as of this encounter Last Filed Vital Signs Vital Sign Reading Time Taken Comments Blood Pressure 125/63 04/20/2012 12:00 PM CDT Pulse 74 04/20/2012 12:00 PM CDT Temperature - - Respiratory Rate - - Oxygen Saturation 96% 04/20/2012 12:00 PM CDT Inhaled Oxygen Concentration - - Weight 108 kg (238 lb 1.6 oz) 04/16/2012 10:27 P M CDT Height - - Body Mass Index 37.37 04/16/2012 10:27 PM CDT documented in this encounter Plan of Treatment Not on file documented as of this encounter Visit Diagnoses Diagnosis Low back pain Lumbago Essential hypertension Unspecified essential hypertension Personal history of malignant neoplasm of breast Osteoarthrosis Osteoarthrosis, unspecified whether generalized or localized, unspecified site Osteoporosis Unspecified osteoporosis Use of selective estrogen receptor modulators (SERMs) Arthrodesis status Knee joint replaced by other means Acquired absence of both cervix and uterus Other acquired absence of organ Personal history of allergy to analgesic agent Other constipation Encounter for long-term (current) use of aspirin documented in this encounter
--- OUTSIDE RECORDS SUMMARY | 2024-08-14 06:37 | XMS_ITS | Encounter Summary ---
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 Name Role Phone Unavailable Primary Care Provider Unavailabl e Encounter Details Date Type Department Care Team (Latest Contact Info) Description 03/12/2011 6:31 PM CDT - 03/14/2011 5:36 PM CDT Hospital Encounter [facility] Dougie Wells Low back pain; Malignant neoplasm of breast (female) (HCC); Osteoarthrosis, unspecified whether generalized or localized, other specified sites; Other back symptoms; Essential hypertension; Osteoporosis; Disorder of bone and cartilage; Constipation; Hypothyroidism; Other chronic pain; Arthrodesis status; History of other malignant neoplasm of skin; Knee joint replaced by other means; Personal history of allergy to narcotic agent; Lumbosacral spondylosis without myelopathy; Degeneration of lumbar or lumbosacral intervertebral disc; Osteoarthrosis; Personal history of malignant neoplasm of breast Social History Tobacco Use Types Packs/Day Years Used Date Smoking Tobacco: Never Assessed Comments Unknown Sex and Gender Information Value Date Recorded Sex Assigned at Not on file 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 Gender Identity Not on file Sexual Orientation Not on file documented as of this encounter Plan of Treatment Not on file documented as of this encounter Visit Diagnoses Diagnosis Low back pain Lumbago Malignant neoplasm of breast (female) (HCC) Malignant neoplasm of breast (female), unspecified site Osteoarthrosis, unspecified whether generalized or localized, other specified sites Other back symptoms Essential hypertension Unspecified essential hypertension Osteoporosis Unspecified osteoporosis Disorder of bone and cartilage Disorder of bone and cartilage, unspecified Constipation Unspecified constipation Hypothyroidism Unspecified hypothyroidism Other chronic pain Arthrodesis status History of other malignant neoplasm of skin Knee joint replaced by other means Personal history of allergy to narcotic agent Lumbosacral spondylosis without myelopathy Degeneration of lumbar or lumbosacral intervertebral disc Osteoarthrosis Osteoarthrosis, unspecified whether generalized or localized, unspecified site Personal history of malignant neoplasm of breast documented in this encounter
--- NOTE | 2024-08-30 10:57 | PC.NURSE ---
LATE ENTRY This note is being entered to document information to the patient's record. The following information was omitted on [08/07/24], by [VAZQUEZ Stern RN ]. Zyprexa 10mg given IM at 0741 R ventrogluteal. Information was documented on incorrect chart and now moved to correct chart The following information was omitted on 08/07 by Kelvin Corbin RN [id number] Haldol 5mg IM to L deltoid information was documented on incorrect chart and moved to correct chart.
== END 2024-08-09 15:20 | disposition hospice, home (50) | DRG 884 ==
PROVIDERS: Admitting Provider Internal Medicine Adolescent Medicine; PCP Nurse Practitioner Family; Visit Provider Internal Medicine
DX: F03.C11 Unspecified dementia, severe, with agitation (principal); F05 Delirium due to known physiological condition; N17.9 Acute kidney failure, unspecified; Z51.5 Encounter for palliative care; E11.42 Type 2 diabetes mellitus with diabetic polyneuropathy; E03.9 Hypothyroidism, unspecified; E86.0 Dehydration; I10 Essential (primary) hypertension; E78.2 Mixed hyperlipidemia; K21.9 Gastro-esophageal reflux disease without esophagitis; D64.9 Anemia, unspecified; G47.33 Obstructive sleep apnea (adult) (pediatric); G89.29 Other chronic pain; Z85.828 Personal history of other malignant neoplasm of skin; Z79.84 Long term (current) use of oral hypoglycemic drugs; Z79.82 Long term (current) use of aspirin; Z79.899 Other long term (current) drug therapy
CPT/HCPCS: 71045; 96372; 99285; A9270; J1630; J2359